=== PATIENT | male | born 1945 ===

== ENCOUNTER 2016-06-20 14:42 | Emergency (ER) | payer MEDICARE ==
[2016-06-20 14:47] VITALS: BMI 23.6
[2016-06-20 16:06] LABS: BASO # 0.1 K/uL (0.0-0.2); BASO % 1.3 % (0.0-2.0); EOS # 0.5 K/uL (0.0-0.7); EOS % 5.8 % (0.0-4.0); HEMATOCRIT 34.1 % (35.0-51.0); LYMPH # 1.8 K/uL (1.0-4.3); LYMPH % 23.5 % (20.0-40.0); MEAN CELL VOLUME 77.1 fL (80.0-94.0); MEAN CORPUSCULAR HEMOGLOBIN 25.6 pg (27.0-31.0); MEAN CORPUSCULAR HGB CONC 33.1 g/dL (33.0-37.0); MEAN PLATELET VOLUME 9.2 fL (7.2-11.7); MONO # 0.6 K/uL (0.0-0.8); MONO % 8.3 % (0.0-10.0); RED CELL DISTRIBUTION WIDTH 14.5 % (11.5-14.5); WHITE BLOOD COUNT 7.8 K/uL (4.8-10.8)
[2016-06-20 16:11] LABS: CHLORIDE 100 mmol/L (98-107)
[2016-06-20 16:12] LABS: POTASSIUM 4.9 mmol/L (3.6-5.2); SODIUM 138 mmol/L (132-148)
[2016-06-20 16:14] LABS: ALB/GLOB RATIO 1.3 (1.0-2.1); ALKALINE PHOSPHATASE 66 U/L (38-126); AST/SGOT 22 U/L (17-59); BILIRUBIN,TOTAL 0.6 mg/dL (0.2-1.3); BLOOD UREA NITROGEN 25 mg/dL (9-20); CARBON DIOXIDE 25 mmol/L (22-30); GFR AFRICAN-AMERICAN > 60; GLUCOSE,RANDOM 130 mg/dL (75-110); TOTAL PROTEIN 7.3 g/dL (6.3-8.3)
[2016-06-20 16:15] LABS: ALT/SGPT 32 U/L (21-72); CALCIUM 9.8 mg/dl (8.6-10.4); RBC URINE < 1 /hpf (0-3); URINE BILIRUBIN NEGATIVE (NEGATIVE); URINE BLOOD NEGATIVE (NEGATIVE); URINE COLOR Yellow (YELLOW); URINE GLUCOSE (UA) 2+ mg/dL (Normal); URINE KETONE NEGATIVE (NEGATIVE); URINE LEUKOCYTE ESTERASE NEG Leu/uL (Negative); URINE PROTEIN NEGATIVE (NEGATIVE); URINE UROBILINOGEN NORMAL mg/dL (0.2-1.0); WBC URINE 1 /hpf (0-5)
--- NOTE | 2016-06-20 16:28 | RAD ---
PROCEDURE: CHEST RADIOGRAPH, 1 VIEW HISTORY: SOB COMPARISON: None available. FINDINGS: LUNGS: Poor inspiration with low lung volumes, mild crowded bronchovascular markings and mild bibasilar atelectasis. Questionable small bilateral effusions slight elevation right hemidiaphragm could be due to eventration. PLEURA: No pneumothorax or pleural fluid seen. CARDIOVASCULAR: Mild cardiomegaly. OSSEOUS STRUCTURES: No significant abnormalities. VISUALIZED UPPER ABDOMEN: Normal. OTHER FINDINGS: None. IMPRESSION: Poor inspiration with low lung volumes, mild crowded bronchovascular markings and mild bibasilar atelectasis. Questionable small bilateral effusions slight elevation right hemidiaphragm could be due to eventration.
--- NOTE | 2016-06-20 17:02 | C.PDOC ---
History Of Present Illness Patient is a 70 y/o male that presents to the ED for evaluation of dyspnea on exertion for the last 2 weeks. Patient reports difficulty walking up 1 flight of stairs. Otherwise, denies any chest pain, palpitations, fever, chills, light headedness, headache, weakness, numbness, or any other associated symptoms at this time. recent tx by PMD with [facility] and [facility] Time Seen by Provider: 06/20/16 15:10 Chief Complaint (Nursing): Chest Pain History Per: Patient History/Exam Limitations: no limitations Onset/Duration Of Symptoms: Days (2 weeks) Current Symptoms Are (Timing): Still Present Severity: None Pain Scale Rating Of: 0 Associated Symptoms: Dyspnea. denies: Nausea, Diaphoresis, Syncope Modifying Factors: None Exacerbating Factors: Exertion Recent travel outside of the [place]: No Additional History Per: Patient Past Medical History Reviewed: Historical Data, Nursing Documentation, Vital Signs Vital Signs: Last Vital Signs Temp 98.4 F 06/20/16 19:28 Pulse 70 06/20/16 19:28 Resp 20 06/20/16 19:28 BP 144/71 06/20/16 19:28 Pulse Ox 98 06/20/16 19:28 - Medical History PMH: Asthma, HTN Family History: States: Unknown Family Hx - Social History Hx Alcohol Use: No Hx Substance Use: No - Immunization History Hx Tetanus Toxoid Vaccination: No Hx Influenza Vaccination: Yes Hx Pneumococcal Vaccination: Yes Review Of Systems Except As Marked, All Systems Reviewed And Found Negative. Constitutional: Negative for: Fever, Chills Cardiovascular: Negative for: Chest Pain, Palpitations, Edema, Light Headedness Respiratory: Positive for: Shortness of Breath, SOB with Excertion. Negative for: Cough, Hemoptysis, Sputum, Wheezing Gastrointestinal: Negative for: Nausea, Vomiting Neurological: Negative for: Weakness, Numbness, Headache, Dizziness Physical Exam - Physical Exam Appears: Non-toxic, No Acute Distress Skin: Warm, Dry, Pale (pale complexion that is baseline due to skin disorder) Head: Atraumatic, Normacephalic Eye(s): bilateral: Normal Inspection, EOMI Neck: Normal ROM, Supple Chest: Symmetrical, No Tenderness Cardiovascular: Rhythm Regular, No Murmur Respiratory: Normal Breath Sounds, No Accessory Muscle Use, No Rales, No Rhonchi , No Wheezing Extremity: Normal ROM, No Pedal Edema, No Deformity, No Swelling Extremity: Bilateral: Atraumatic Neurological/Psych: Oriented x3, Normal Speech, Normal Cognition ED Course And Treatment - Laboratory Results Result Diagrams: 06/20/16 15:59 06/20/16 15:59 Lab Interpretation: Abnormal (d-dimer 492H) ECG: Interpreted By Me, Viewed By Me ECG Rhythm: Sinus Rhythm ECG Interpretation: No Acute Changes Rate From EC (bpm) O2 Sat by Pulse Oximetry: 100 (on RA) Pulse Ox Interpretation: Normal - Other Rad CTA Chest X-Ray: Interpreted by Me, Read By Radiologist (no PE, some small airway disease) Progress Note: Labs, EKG, CXR ordered and reviewed. Reevaluation Time: 19:40 Reassessment Condition: Improved Medical Decision Making Medical Decision Making: prob COPD, no sig anemia, mildly elev d-dimer (492) CTA neg for PE Pt and family rather f/u as opt. Disposition Doctor Will See Patient In The: Office Counseled Patient/Family Regarding: Studies Performed, Diagnosis - Disposition Disposition: HOME/ ROUTINE Disposition Time: 19:41 Condition: GOOD - Clinical Impression Clinical Impression: Dyspnea on exertion - Scribe Statement The provider has reviewed the documentation as recorded by the Ollie Bejarano Provider Attestation: All medical record entries made by the Ollie were at my direction and personally dictated by me. I have reviewed the chart and agree that the record accurately reflects my personal performance of the history, physical exam, medical decision making, and the department course for this patient. I have also personally directed, reviewed, and agree with the discharge instructions and disposition.
[2016-06-20] MEDS ORDERED: Iodixanol 320 MG/ML 100 ML BOTTLE IV ONE (18:34)
--- NOTE | 2016-06-20 19:27 | CT ---
EXAM: CT Angiography Chest With Intravenous Contrast. CLINICAL HISTORY: 70 years old, male; Signs and symptoms; Other: Elevated d-dimer; Additional info: Dickerson, elev d-dimer TECHNIQUE: Axial computed tomographic angiography images of the chest with intravenous contrast using pulmonary embolism protocol. This CT exam was performed using one or more of the following dose reduction techniques: automated exposure control, adjustment of the mA and/or kV according to patient size, and/or use of iterative reconstruction technique. MIP reconstructed images were created and reviewed. Coronal and sagittal reformatted images were created and reviewed. CONTRAST: 100 mL of [id number] administered intravenously. EXAM DATE/TIME: 06/20/2016 6:00 PM COMPARISON: No relevant prior studies available. FINDINGS: LIMITATIONS: Exam is limited by mild respiratory motion artifact. PULMONARY ARTERIES: Contrast opacification of the pulmonary arteries is adequate, and there are no filling defects seen to suggest pulmonary embolism. AORTA: No evidence of aortic dissection. LUNGS: Multiple areas of mosaic attenuation are seen in the lung parenchyma bilaterally, which could represent multifocal air trapping from small airways disease, such as reactive airways disease. Incidental 4 x 2 noncalcified pulmonary nodule in the right lung, image 122/series 2. In low-risk patients (minimal or absent history of smoking or other known risk factors), no follow-up needed. For high-risk patients (history of smoking or other known risk factors), recommend CT at 12 months and if stable no further follow-up. No evidence of significant focal consolidation/infiltrate in the lungs. No evidence of diffuse pulmonary vascular congestion. PLEURAL SPACE: No pneumothorax or pleural effusions seen. HEART: Coronary artery calcification. No evidence of significant pericardial effusion. BONES/JOINTS: No acute bony abnormality identified. LYMPH NODES: No evidence of diffuse lymphadenopathy. IMPRESSION: - No evidence of pulmonary embolism or other significant acute abnormality in the chest. - Incidental 3 mm pumonary nodule. See recommendations above - Areas of mosaic attenuation in the lungs bilaterally, which could represent multifocal air trapping from small airways disease, such as reactive airways disease - See above for remaining findings.
[2016-06-20 19:28] VITALS: BP 144/71; PULSE 70; RESP 20; TEMP 98.4
[2016-06-20 19:41] VITALS: O2SAT 100
--- NOTE | 2016-06-21 22:15 | CARD ---
APPROVED REPORT EKG Measurement Heart [id number] ME [id number] <Conclusion> Normal sinus rhythm Normal ECG
== END 2016-06-20 19:45 | disposition home or self-care (01) ==
LOC: C.ER 14:42
DX: R06.09 Other forms of dyspnea (principal)
CPT/HCPCS: 71010; 71275; 80053; 81001; 83880; 84484; 85025; 85378; 93005; 99285; Q9967

== ENCOUNTER 2016-07-14 08:51 | Inpatient (IN) | payer MEDICARE ==
[2016-07-14 09:07] VITALS: BMI 22.6
[2016-07-14 09:27] LABS: INR 0.9
[2016-07-14] MEDS ORDERED: Iodixanol 320 MG/ML 200 ML BOTTLE IV ONE (11:40)
[2016-07-14] MEDS ORDERED: Midazolam 2 MG/2 ML VIAL ONE (11:41)
[2016-07-14] MEDS ORDERED: Iodixanol 320 MG/ML 100 ML BOTTLE IV ONE (12:19)
[2016-07-14] MEDS ORDERED: ceFAZolin IV 1 gm in Dextrose 50 ML IVPB ONE (12:27)
[2016-07-14] MEDS ORDERED: Sodium Chloride 0.9% 1,000 ML IV SCH (13:15)
--- NOTE | 2016-07-14 14:02 | CP.PCM.HP ---
<Pancho Murillo - Last Filed: 07/14/16 17:27> History of Present Illness - History of Present Illness History of Present Illness: CC: Shortness of Breath HPI: Patient is a 70 year old male of descent, with PMHx of type two diabetes mellitus (diagnosed 20 years ago), hyperlipidemia, prostatectomy, and iron deficiency anemia, who presented to [facility] for cardiac catheterization. Cardiac cath showed multiple blockages. Patient reports onset of dyspnea with exertion. He used to be able to walk up stairs without issue but now has difficulty climbing 1 flight without becoming winded. Pt reports recent ED visit on 06/20/2016 for dyspnea, he was prescribed Advair and told to follow up with his PMD, Dr. Charlie Branham. His symptoms did not improve so he followed up, and was sent to Dr. Castillo, the molded goods spot picker. Pt was referred to Dr. Johnston for Cardiac cath. PMHx: T2DM (diagnosed 20 years ago), hyperlipidemia, prostatectomy, iron deficiency anemia PSHx: Prostactectomy (2014), Cataracts FHx: Mother - HTN, [place]; Father - denies SHx: Denies smoking history; worked in [employer] in [facility] [facility] "exposed to chemicals and dust"; Allergies: NKA Home meds: ASA 81mg Daily, Metformin 1000mg PO BID, Glipizide XL 10mg PO BID, Repaglinide 1mg PO daily, Lisinopril/HCTZ 20/25mg, Zoloft 25 mg Daily, Omeprazole 20mg Daily PMD: Dr. Charlie Branham Present on Admission - Present on Admission Any Indicators Present on Admission: No History of DVT/PE: No Review of Systems - Constitutional Constitutional: absent: Chills, Fever - EENT Eyes: absent: Change in Vision Ears: absent: Decreased Hearing - Cardiovascular Cardiovascular: Dyspnea on Exertion. absent: Chest Pain, Chest Pain at Rest, Edema - Respiratory Respiratory: Dyspnea on Exertion. absent: Cough - Gastrointestinal Gastrointestinal: absent: Abdominal Pain, Dysphagia, Nausea, Vomiting - Genitourinary Genitourinary: absent: Dysuria - Musculoskeletal Musculoskeletal: absent: Back Pain, Numbness, Tingling - Neurological Neurological: absent: Dizziness, Tremor, Weakness - Psychiatric Psychiatric: absent: Anxiety Past Patient History - Infectious Disease Hx of Infectious Diseases: None - Past Medical History & Family History Past Medical History?: Yes - Past Social History Smoking Status: Never Smoked - CARDIAC Hx Cardiac Disorders: Yes (CAD) Hx Hypercholesterolemia: Yes Hx Hypertension: Yes - PULMONARY Hx Respiratory Disorders: Yes Hx Asthma: Yes Hx Chronic Obstructive Pulmonary Disease (COPD): Yes - NEUROLOGICAL Hx Neurological Disorder: No - HEENT Hx HEENT Problems: Yes Hx Cataracts: Yes (RIGHT) - RENAL Hx Chronic Kidney Disease: No - ENDOCRINE/METABOLIC Hx Endocrine Disorders: Yes Hx Diabetes Mellitus Type 2: Yes - HEMATOLOGICAL/ONCOLOGICAL Hx Blood Disorders: No - INTEGUMENTARY Hx Dermatological Problems: Yes (PIGMENT LOSS) - MUSCULOSKELETAL/RHEUMATOLOGICAL Hx Musculoskeletal Disorders: Yes Hx Osteoarthritis: Yes (KNEES) - GASTROINTESTINAL Hx Gastrointestinal Disorders: No - GENITOURINARY/GYNECOLOGICAL Hx Genitourinary Disorders: Yes Hx Prostate Problems: Yes - PSYCHIATRIC Hx Psychophysiologic Disorder: No Hx Substance Use: No - SURGICAL HISTORY Hx Surgeries: Yes Hx Cataract Extraction: Yes (RIGHT) Other/Comment: prostate sx - ANESTHESIA Hx Anesthesia: Yes Hx Anesthesia Reactions: No Hx Malignant Hyperthermia: No Has any member of the family had a problem w/ anesthesia?: No Meds Allergies/Adverse Reactions: Allergies Allergy/AdvReac Type Severity Reaction Status Date / Time No Known Allergies Allergy Verified 06/20/16 14:47 Physical Exam - Constitutional Appears: Non-toxic, No Acute Distress - Head Exam Head Exam: ATRAUMATIC, NORMAL INSPECTION, NORMOCEPHALIC - Eye Exam Eye Exam: EOMI Pupil Exam: PERRL - ENT Exam ENT Exam: Mucous Membranes Moist - Neck Exam Neck exam: Positive for: Normal Inspection. Negative for: Lymphadenopathy - Respiratory Exam Respiratory Exam: Clear to Auscultation Bilateral, NORMAL BREATHING PATTERN. absent: Rales, Rhonchi, Wheezes - Cardiovascular Exam Cardiovascular Exam: REGULAR RHYTHM, +S1, +S2 - GI/Abdominal Exam GI & Abdominal Exam: Normal Bowel Sounds, Soft. absent: Tenderness - Extremities Exam Extremities exam: Positive for: normal inspection. Negative for: tenderness - Neurological Exam Neurological exam: Alert, Oriented x3 - Psychiatric Exam Psychiatric exam: Normal Affect - Skin Skin Exam: Normal Color, Warm Results - Labs Result Diagrams: 07/14/16 17:10 07/14/16 17:10 Labs: Laboratory Results - last 24 hr 07/14/16 09:15 PT 10.0 INR 0.9 APTT 30 Assessment & Plan - Assessment and Plan (Free Text) Assessment: 70 year old male with PMHx of HTN, hyperlipidemia, type two diabetes mellitus, s /p cardiac cath showing with multiple stent placements. For CABG as soon as bed available. Plan: CAD Cardiac Cath (07/14/16) showing triple vessel disease Dr. Johnston, Cardiology, consulted: help appreciated - pt for CABG at [facility], [place] as soon as bed available Continue home med: ASA 81mg Lovenox 60mg Q12H f/u ECHO f/u TSH, Free T4 f/u CBC, CMP, Mg, Phos HTN Initially hypertensive in ICU Start Lopressor 12.5mg PO BID Continue home meds: Lisinopril 20 mg PO Daily HCTZ 25 mg PO Daily Monitor Diabetes Mellitus, Type Two Accuchecks ACHS ISS f/u Hemoglobin A1C Hold home meds: Metformin 1000mg PO BID Glipizide XL 10mg PO BID Repaglinide 1mg PO daily Hyperlipidemia Crestor 40mg PO HS f/u lipid panel Prophylaxis DVT: Lovenox 60mg SC Q12H, SCDs GI: Protonix 40mg IV Daily D/W Dr. Marissa Murillo PGY-1 <Lizeth Ann V - Last Filed: 07/14/16 19:40> Results - Vital Signs Recent Vital Signs: Last Vital Signs Temp 97.5 F L 07/14/16 13:40 Pulse 90 07/14/16 18:06 Resp 17 07/14/16 18:06 BP 158/108 H 07/14/16 18:06 Pulse Ox 98 07/14/16 18:06 - Labs Result Diagrams: 07/14/16 17:10 07/14/16 17:10 Labs: Laboratory Results - last 24 hr 07/14/16 07/14/16 07/14/16 09:15 16:25 17:10 WBC 6.1 RBC 4.41 Hgb 11.3 L Hct 33.9 L MCV 76.9 L MCH 25.6 L MCHC 33.3 RDW 14.5 Plt Count 161 MPV 8.8 Neut % (Auto) 61.3 Lymph % (Auto) 24.8 [place] % (Auto) 7.8 Eos % (Auto) 5.3 H Baso % (Auto) 0.8 Neut # 3.7 Lymph # 1.5 [place] # 0.5 Eos # 0.3 Baso # 0.0 PT 10.0 INR 0.9 APTT 30 Sodium 134 Potassium 4.6 Chloride 98 Carbon Dioxide 24 Anion Gap 17 BUN 23 H Creatinine 1.1 Est GFR ( Amer) > 60 Est GFR (Non-Af Amer) > 60 POC Glucose (mg/dL) 88 Random Glucose 95 Calcium 8.8 Phosphorus 3.7 Magnesium 1.7 Total Bilirubin 0.7 AST 24 ALT 27 Alkaline Phosphatase 66 Total Protein 6.8 Albumin 4.1 Globulin 2.7 Albumin/Globulin Ratio 1.5 Attending/Attestation - Attestation I have personally seen and examined this patient.: Yes I have fully participated in the care of the patient.: Yes I have reviewed all pertinent clinical information: Yes Notes (Text): Patient seen, examined, and case discussed with ICU resident. Case discussed with radiology tech, Dr Johnston. Patient underwent cardiac catherization wherein showed significant multiple vessel disease. Patient is pending transfer to [facility] for CABG procedure. Per cardiology, patient is on aspirin, beta-shalom, galen-inhibitor, statin, and off PO anti-diabetic medications. Spoke briefly with family at bedside, patient's brother and at bedside. Assessment/Plan 1) Coronary Artery Disease Cardiac Cath (07/14/16) showing triple vessel disease Dr. Johnston (radiology tech)-->help appreciated Discussed with cardiology, for possible transfer for for CABG at [facility], [place] as soon as bed available Continue home med: ASA 81mg PO daily Lovenox 60mg Q12H f/u ECHO check EF f/u TSH, Free T4 f/u CBC, CMP, Mg, Phos 2) Hypertension Start Lopressor 12.5mg PO BID Continue home meds: Lisinopril 20 mg PO Daily HCTZ 25 mg PO Daily Monitor vital signs and adjust accordingly 3) Diabetes Mellitus, Type Two Accuchecks ACHS ISS f/u Hemoglobin A1C Hold home meds: Metformin 1000mg PO BID Glipizide XL 10mg PO BID Repaglinide 1mg PO daily 4) Hyperlipidemia Crestor 40mg PO HS f/u lipid panel in AM 5) Prophylaxis DVT: Lovenox 60mg SC Q12H, SCDs GI: Protonix 40mg IV Daily Vegetarian diet
--- NOTE | 2016-07-14 15:33 | CP.PCM.CON ---
<Pancho Murillo - Last Filed: 07/14/16 17:31> History of Present Illness - History of Present Illness History of Present Illness: PGY-[address] Saldana, chief operations officer CC: Shortness of Breath HPI: Patient is a 70 year old male of [place] descent, with PMHx of type two diabetes mellitus (diagnosed 20 years ago), hyperlipidemia, prostatectomy, and iron deficiency anemia, who presented to [facility] for cardiac catheterization. Cardiac cath showed triple vessel disease, and multiple stents were placed. Patient reports onset of dyspnea with exertion. He used to be able to walk up stairs without issue but now has difficulty climbing 1 flight without becoming winded. Pt reports recent ED visit on 06/20/2016 for dyspnea, he was prescribed Advair and told to follow up with his PMD, Dr. Charlie Branham. His symptoms did not improve so he followed up, and was sent to Dr. Castillo, the stock mover. Pt was referred to Dr. Johnston for Cardiac cath. PMHx: T2DM (diagnosed 20 years ago), hyperlipidemia, prostatectomy, iron deficiency anemia PSHx: Prostactectomy (2014), Cataracts FHx: Mother - HTN, [place]; Father - denies SHx: Denies smoking/alcohol/illicit drug history; worked in [employer] in [facility] "exposed to chemicals and dust"; lives in apartment in [place] Allergies: NKA Home meds: ASA 81mg Daily, Metformin 1000mg PO BID, Glipizide XL 10mg PO BID, Repaglinide 1mg PO daily, Lisinopril/HCTZ 20/25mg, Zoloft 25 mg Daily, Omeprazole 20mg Daily PMD: Dr. Apolinar Branham Review of Systems - Constitutional Constitutional: absent: Chills, Fever - EENT Eyes: absent: Change in Vision Ears: absent: Decreased Hearing Nose/Mouth/Throat: absent: Nasal Discharge, Sore Throat - Cardiovascular Cardiovascular: Dyspnea on Exertion. absent: Chest Pain, Chest Pain at Rest, Edema - Respiratory Respiratory: Dyspnea on Exertion. absent: Cough - Gastrointestinal Gastrointestinal: absent: Abdominal Pain, Bloating, Diarrhea, Nausea, Vomiting - Genitourinary Genitourinary: absent: Dysuria - Musculoskeletal Musculoskeletal: absent: Back Pain, Numbness, Tingling - Neurological Neurological: absent: Dizziness, Tremor, Weakness - Psychiatric Psychiatric: absent: Anxiety Past Patient History - Infectious Disease Hx of Infectious Diseases: None - Past Medical History & Family History Past Medical History?: Yes - Past Social History Smoking Status: Never Smoked - CARDIAC Hx Cardiac Disorders: Yes (CAD) Hx Hypercholesterolemia: Yes Hx Hypertension: Yes - PULMONARY Hx Respiratory Disorders: Yes Hx Asthma: Yes Hx Chronic Obstructive Pulmonary Disease (COPD): Yes - NEUROLOGICAL Hx Neurological Disorder: No - HEENT Hx HEENT Problems: Yes Hx Cataracts: Yes (RIGHT) - RENAL Hx Chronic Kidney Disease: No - ENDOCRINE/METABOLIC Hx Endocrine Disorders: Yes Hx Diabetes Mellitus Type 2: Yes - HEMATOLOGICAL/ONCOLOGICAL Hx Blood Disorders: No - INTEGUMENTARY Hx Dermatological Problems: Yes (PIGMENT LOSS) - MUSCULOSKELETAL/RHEUMATOLOGICAL Hx Musculoskeletal Disorders: Yes Hx Osteoarthritis: Yes (KNEES) - GASTROINTESTINAL Hx Gastrointestinal Disorders: No - GENITOURINARY/GYNECOLOGICAL Hx Genitourinary Disorders: Yes Hx Prostate Problems: Yes - PSYCHIATRIC Hx Psychophysiologic Disorder: No Hx Substance Use: No - SURGICAL HISTORY Hx Surgeries: Yes Hx Cataract Extraction: Yes (RIGHT) Other/Comment: prostate sx - ANESTHESIA Hx Anesthesia: Yes Hx Anesthesia Reactions: No Hx Malignant Hyperthermia: No Has any member of the family had a problem w/ anesthesia?: No Meds Allergies/Adverse Reactions: Allergies Allergy/AdvReac Type Severity Reaction Status Date / Time No Known Allergies Allergy Verified 06/20/16 14:47 - Medications Medications: Current Medications Albuterol (Ventolin Hfa 90 Mcg/Actuation (8 G)) 1 puff IH BID PRN PRN Reason: Shortness of Breath Enoxaparin Sodium (Lovenox) 60 mg SC Q12 [facility] Hydrochlorothiazide (Hydrodiuril) 25 mg PO DAILY [facility] Last Admin: 07/14/16 15:20 Dose: 25 mg Sodium Chloride (Sodium Chloride 0.9%) 1,000 mls @ 70 mls/hr IV .[id number] [facility] Stop: 07/15/16 01:16 Last Admin: 07/14/16 13:35 Dose: 70 mls/hr Insulin Human Regular (Novolin R) 0 unit SC ACHS [facility] PRN Reason: Protocol Lisinopril (Zestril) 20 mg PO DAILY [facility] Last Admin: 07/14/16 15:20 Dose: 20 mg Pantoprazole Sodium (Protonix Inj) 40 mg IVP DAILY [facility] Physical Exam - Constitutional Appears: Non-toxic, No Acute Distress - Head Exam Head Exam: ATRAUMATIC, NORMAL INSPECTION, NORMOCEPHALIC - Eye Exam Eye Exam: EOMI Pupil Exam: PERRL - ENT Exam ENT Exam: Mucous Membranes Moist - Neck Exam Neck exam: Positive for: Normal Inspection. Negative for: Lymphadenopathy - Respiratory Exam Respiratory Exam: Clear to Auscultation Bilateral, NORMAL BREATHING PATTERN. absent: Rales, Rhonchi, Wheezes - Cardiovascular Exam Cardiovascular Exam: REGULAR RHYTHM, +S1, +S2 - GI/Abdominal Exam GI & Abdominal Exam: Normal Bowel Sounds, Soft. absent: Tenderness - Extremities Exam Extremities exam: Positive for: normal inspection, pedal pulses present. Negative for: pedal edema, tenderness - Neurological Exam Neurological exam: Alert, Oriented x3 - Psychiatric Exam Psychiatric exam: Normal Affect - Skin Skin Exam: Normal Color, Warm Results - Vital Signs Recent Vital Signs: Last Vital Signs Temp 97.5 F L 07/14/16 13:40 Pulse 71 07/14/16 13:40 Resp 18 07/14/16 13:40 BP 152/67 H 07/14/16 13:40 Pulse Ox 100 07/14/16 13:40 - Labs Result Diagrams: 07/14/16 17:10 07/14/16 17:10 Labs: Laboratory Results - last 24 hr 07/14/16 09:15 PT 10.0 INR 0.9 APTT 30 Assessment & Plan - Assessment and Plan (Free Text) Assessment: 70 year old male with PMHx of HTN, hyperlipidemia, type two diabetes mellitus, s /p cardiac cath showing with multiple stent placements. For CABG as soon as bed available. Plan: Neuro: aao x3 in nad Cardio: Dr. Johnston, cardiology, consult: help appreciated Cardiac Cath showed triple vessel disease - CABG at [facility] when bed available Dr. Martinez, Cardio EP, consulted Continue home Lisinopril/HCTZ 20/25mg PO Daily Start Lopressor 12.5 mg PO BID Crestor 40mg PO HS Lovenox 40mg PO HS F/U Echo f/u TSH, Free T4, lipid panel f/u CBC, CMP, Mg, Phos Heart Healthy Diet, with consistent carbohydrates Nephro/: NS @ 70cc/hr BUN/Crea: 23/1.1 GFR: >60 Pulm: Hx of "respiratory disorder" - Pt denies hx of asthma/copd but chart indicates previous diagnoses - Continue home med: Ventolin HFA 1 puff IH BID Endo: DM: ISS - low Accuchecks Hold home metformin/glipizide/repaglinide f/u A1C Prophylaxis: GI: Protonix IV Daily DVT: SCDs, Lovenox 60mg SC Q12H <Nathan Saldana - Last Filed: 07/14/16 18:42> Meds - Medications Medications: Current Medications Albuterol (Ventolin Hfa 90 Mcg/Actuation (8 G)) 1 puff IH BID PRN PRN Reason: Shortness of Breath Enoxaparin Sodium (Lovenox) 60 mg SC Q12 [facility] Hydrochlorothiazide (Hydrodiuril) 25 mg PO DAILY [facility] Last Admin: 07/14/16 15:20 Dose: 25 mg Sodium Chloride (Sodium Chloride 0.9%) 1,000 mls @ 70 mls/hr IV .[id number] [facility] Stop: 07/15/16 01:16 Last Admin: 07/14/16 13:35 Dose: 70 mls/hr Insulin Human Regular (Novolin R) 0 unit SC ACHS [facility] PRN Reason: Protocol Last Admin: 07/14/16 17:00 Dose: Not Given Lisinopril (Zestril) 20 mg PO DAILY [facility] Last Admin: 07/14/16 15:20 Dose: 20 mg Metoprolol Tartrate (Lopressor) 12.5 mg PO BID [facility] Pantoprazole Sodium (Protonix Inj) 40 mg IVP DAILY [facility] Last Admin: 07/14/16 18:11 Dose: 40 mg Rosuvastatin Calcium (Crestor) 40 mg PO HS [facility] Results - Vital Signs Recent Vital Signs: Last Vital Signs Temp 97.5 F L 07/14/16 13:40 Pulse 90 07/14/16 18:06 Resp 17 07/14/16 18:06 BP 158/108 H 07/14/16 18:06 Pulse Ox 98 07/14/16 18:06 - Labs Result Diagrams: 07/14/16 17:10 07/14/16 17:10 Labs: Laboratory Results - last 24 hr 07/14/16 07/14/16 07/14/16 09:15 16:25 17:10 WBC 6.1 RBC 4.41 Hgb 11.3 L Hct 33.9 L MCV 76.9 L MCH 25.6 L MCHC 33.3 RDW 14.5 Plt Count 161 MPV 8.8 Neut % (Auto) 61.3 Lymph % (Auto) 24.8 [place] % (Auto) 7.8 Eos % (Auto) 5.3 H Baso % (Auto) 0.8 Neut # 3.7 Lymph # 1.5 [place] # 0.5 Eos # 0.3 Baso # 0.0 PT 10.0 INR 0.9 APTT 30 Sodium 134 Potassium 4.6 Chloride 98 Carbon Dioxide 24 Anion Gap 17 BUN 23 H Creatinine 1.1 Est GFR ( Amer) > 60 Est GFR (Non-Af Amer) > 60 POC Glucose (mg/dL) 88 Random Glucose 95 Calcium 8.8 Phosphorus 3.7 Magnesium 1.7 Total Bilirubin 0.7 AST 24 ALT 27 Alkaline Phosphatase 66 Total Protein 6.8 Albumin 4.1 Globulin 2.7 Albumin/Globulin Ratio 1.5 Attending/Attestation - Attestation I have personally seen and examined this patient.: Yes I have fully participated in the care of the patient.: Yes I have reviewed all pertinent clinical information: Yes Notes (Text): 07/14/16 18:41 patient seen and examined Cardiac Cath showed triple vessel disease CABG at [facility] when bed available Continue present treatment
[2016-07-14] MEDS: (Novolin R) Insulin Human Regular 100 units/ml vial SC SCH ×2 (17:00→21:42)
[2016-07-14 17:16] LABS: BASO % 0.8 % (0.0-2.0); EOS # 0.3 K/uL (0.0-0.7); EOS % 5.3 % (0.0-4.0); HEMATOCRIT 33.9 % (35.0-51.0); LYMPH # 1.5 K/uL (1.0-4.3); LYMPH % 24.8 % (20.0-40.0); MEAN CELL VOLUME 76.9 fL (80.0-94.0); MEAN CORPUSCULAR HEMOGLOBIN 25.6 pg (27.0-31.0); MEAN CORPUSCULAR HGB CONC 33.3 g/dL (33.0-37.0); MEAN PLATELET VOLUME 8.8 fL (7.2-11.7); MONO # 0.5 K/uL (0.0-0.8); MONO % 7.8 % (0.0-10.0); RED CELL DISTRIBUTION WIDTH 14.5 % (11.5-14.5); WHITE BLOOD COUNT 6.1 K/uL (4.8-10.8)
[2016-07-14 17:22] LABS: CHLORIDE 98 mmol/L (98-107); SODIUM 134 mmol/L (132-148)
[2016-07-14 17:23] LABS: POTASSIUM 4.6 mmol/L (3.6-5.2)
[2016-07-14 17:24] LABS: GFR AFRICAN-AMERICAN > 60
[2016-07-14 17:25] LABS: ALB/GLOB RATIO 1.5 (1.0-2.1); ALKALINE PHOSPHATASE 66 U/L (38-126); ALT/SGPT 27 U/L (21-72); AST/SGOT 24 U/L (17-59); BILIRUBIN,TOTAL 0.7 mg/dL (0.2-1.3); BLOOD UREA NITROGEN 23 mg/dL (9-20); CARBON DIOXIDE 24 mmol/L (22-30); GLUCOSE,RANDOM 95 mg/dL (75-110); PHOSPHOROUS 3.7 mg/dL (2.5-4.5); TOTAL PROTEIN 6.8 g/dL (6.3-8.3)
[2016-07-14 17:26] LABS: CALCIUM 8.8 mg/dl (8.6-10.4); MAGNESIUM 1.7 mg/dL (1.6-2.3)
--- NOTE | 2016-07-14 17:46 | CP.PCM.CON ---
<Jona Rowan - Last Filed: 07/14/16 17:41> History of Present Illness - History of Present Illness History of Present Illness: Cardiology Consultation Note Dr. Martinez CC: Shortness of Breath HPI: This is a 70 year old male with PMH notable for type two diabetes mellitus (diagnosed 20 years ago), hyperlipidemia, prostatectomy, and iron deficiency anemia presenting for cardiac evaluation s/p cardiac catheterization with Dr. Johnston. The cardiac cath revealed triple vessel disease, and multiple stents were placed. The patient is pending transfer to [facility] for cardiac bypass surgery. Presently the patient reports resolution of cardiopulmonary symptoms. PMH: DM (diagnosed 20 years ago), hyperlipidemia, prostatectomy, iron deficiency anemia PSH: Prostactectomy (2014), Cataracts FH: Mother - HTN, [place]; Father - denies SH: Denies smoking/alcohol/illicit drug history; worked in [employer] in [facility] "exposed to chemicals and dust"; lives in apartment in [place] Allergies: NKA Home meds: ASA 81mg Daily, Metformin 1000mg PO BID, Glipizide XL 10mg PO BID, Repaglinide 1mg PO daily, Lisinopril/HCTZ 20/25mg, Zoloft 25 mg Daily, Omeprazole 20mg Daily PMD: Dr. Charlie Branham Review of Systems - Constitutional Constitutional: absent: Chills, Fever - EENT Eyes: absent: Blurred Vision, Change in Vision Ears: absent: Decreased Hearing, Tinnitus Nose/Mouth/Throat: absent: Facial Pain, Neck Pain - Cardiovascular Cardiovascular: absent: Chest Pain, Orthopnea, Palpitations - Respiratory Respiratory: absent: Cough, Dyspnea, Dyspnea on Exertion - Gastrointestinal Gastrointestinal: absent: Abdominal Pain, Constipation, Nausea, Vomiting - Genitourinary Genitourinary: absent: Change in Urinary Stream - Musculoskeletal Musculoskeletal: absent: Stiffness, Tingling - Integumentary Integumentary: absent: Lesions, Rash, Wounds - Neurological Neurological: absent: Syncope, Tingling, Weakness - Endocrine Endocrine: absent: Cold Intolorance, Heat Intolorance Past Patient History - Infectious Disease Hx of Infectious Diseases: None - Past Medical History & Family History Past Medical History?: Yes - Past Social History Smoking Status: Never Smoked - CARDIAC Hx Cardiac Disorders: Yes (CAD) Hx Hypercholesterolemia: Yes Hx Hypertension: Yes - PULMONARY Hx Respiratory Disorders: Yes Hx Asthma: Yes Hx Chronic Obstructive Pulmonary Disease (COPD): Yes - NEUROLOGICAL Hx Neurological Disorder: No - HEENT Hx HEENT Problems: Yes Hx Cataracts: Yes (RIGHT) - RENAL Hx Chronic Kidney Disease: No - ENDOCRINE/METABOLIC Hx Endocrine Disorders: Yes Hx Diabetes Mellitus Type 2: Yes - HEMATOLOGICAL/ONCOLOGICAL Hx Blood Disorders: No - INTEGUMENTARY Hx Dermatological Problems: Yes (PIGMENT LOSS) - MUSCULOSKELETAL/RHEUMATOLOGICAL Hx Musculoskeletal Disorders: Yes Hx Osteoarthritis: Yes (KNEES) - GASTROINTESTINAL Hx Gastrointestinal Disorders: No - GENITOURINARY/GYNECOLOGICAL Hx Genitourinary Disorders: Yes Hx Prostate Problems: Yes - PSYCHIATRIC Hx Psychophysiologic Disorder: No Hx Substance Use: No - SURGICAL HISTORY Hx Surgeries: Yes Hx Cataract Extraction: Yes (RIGHT) Other/Comment: prostate sx - ANESTHESIA Hx Anesthesia: Yes Hx Anesthesia Reactions: No Hx Malignant Hyperthermia: No Has any member of the family had a problem w/ anesthesia?: No Meds Allergies/Adverse Reactions: Allergies Allergy/AdvReac Type Severity Reaction Status Date / Time No Known Allergies Allergy Verified 06/20/16 14:47 - Medications Medications: Current Medications Albuterol (Ventolin Hfa 90 Mcg/Actuation (8 G)) 1 puff IH BID PRN PRN Reason: Shortness of Breath Enoxaparin Sodium (Lovenox) 60 mg SC Q12 [facility] Hydrochlorothiazide (Hydrodiuril) 25 mg PO DAILY [facility] Last Admin: 07/14/16 15:20 Dose: 25 mg Sodium Chloride (Sodium Chloride 0.9%) 1,000 mls @ 70 mls/hr IV .[id number] [facility] Stop: 07/15/16 01:16 Last Admin: 07/14/16 13:35 Dose: 70 mls/hr Insulin Human Regular (Novolin R) 0 unit SC ACHS [facility] PRN Reason: Protocol Lisinopril (Zestril) 20 mg PO DAILY [facility] Last Admin: 07/14/16 15:20 Dose: 20 mg Metoprolol Tartrate (Lopressor) 12.5 mg PO BID [facility] Pantoprazole Sodium (Protonix Inj) 40 mg IVP DAILY [facility] Rosuvastatin Calcium (Crestor) 40 mg PO HS [facility] Physical Exam - Constitutional Appears: Non-toxic - Head Exam Head Exam: ATRAUMATIC, NORMAL INSPECTION, NORMOCEPHALIC - Eye Exam Eye Exam: EOMI, Normal appearance, PERRL - ENT Exam ENT Exam: Mucous Membranes Moist - Respiratory Exam Respiratory Exam: Clear to Auscultation Bilateral, NORMAL BREATHING PATTERN. absent: Rhonchi, Wheezes - Cardiovascular Exam Cardiovascular Exam: REGULAR RHYTHM, RRR, +S1, +S2. absent: Diastolic murmur, Systolic Murmur - GI/Abdominal Exam GI & Abdominal Exam: Normal Bowel Sounds, Soft. absent: Diminished Bowel Sounds , Guarding, Tenderness - Extremities Exam Extremities exam: Positive for: normal inspection. Negative for: pedal edema - Neurological Exam Neurological exam: Alert, CN II-XII Intact, Oriented x3 - Skin Skin Exam: Dry, Intact, Normal Color, Warm Results - Vital Signs Recent Vital Signs: Last Vital Signs Temp 97.5 F L 07/14/16 13:40 Pulse 71 07/14/16 13:40 Resp 18 07/14/16 13:40 BP 152/67 H 07/14/16 13:40 Pulse Ox 100 07/14/16 13:40 - Labs Result Diagrams: 07/14/16 17:10 07/14/16 17:10 Labs: Laboratory Results - last 24 hr 07/14/16 07/14/16 07/14/16 09:15 16:25 17:10 WBC 6.1 RBC 4.41 Hgb 11.3 L Hct 33.9 L MCV 76.9 L MCH 25.6 L MCHC 33.3 RDW 14.5 Plt Count 161 MPV 8.8 Neut % (Auto) 61.3 Lymph % (Auto) 24.8 [place] % (Auto) 7.8 Eos % (Auto) 5.3 H Baso % (Auto) 0.8 Neut # 3.7 Lymph # 1.5 [place] # 0.5 Eos # 0.3 Baso # 0.0 PT 10.0 INR 0.9 APTT 30 Sodium 134 Potassium 4.6 Chloride 98 Carbon Dioxide 24 Anion Gap 17 BUN 23 H Creatinine 1.1 Est GFR ( Amer) > 60 Est GFR (Non-Af Amer) > 60 POC Glucose (mg/dL) 88 Random Glucose 95 Calcium 8.8 Phosphorus 3.7 Magnesium 1.7 Total Bilirubin 0.7 AST 24 ALT 27 Alkaline Phosphatase 66 Total Protein 6.8 Albumin 4.1 Globulin 2.7 Albumin/Globulin Ratio 1.5 Assessment & Plan - Assessment and Plan (Free Text) Assessment: This is a 70 year old male with PMH notable for type two diabetes mellitus ( diagnosed 20 years ago), hyperlipidemia, prostatectomy, and iron deficiency anemia presenting for cardiac evaluation s/p cardiac catheterization with Dr. Johnston. 1.) Severe Triple Vessel Disease Plan: 1.) Severe Triple Vessel Disease - the patient is s/p cardiac cath with Dr. Johnston revealing severe triple vessel disease - the patient is pending transfer to [facility] for cardiac bypass surgery - echo pending - Crestor 40mg PO hs - HCTZ 25mg PO daily - Metoprolol 12.5mg po bid - maintain supine posture for the next 4 hours following cath - cath site check q2 - patient will be have primary care managed by the ICU team Case discussed with Dr. Juan Rowan PGY1 - Date & Time Date: 07/14/16 Time: 17:52 <Yumiko Martinez - Last Filed: 08/17/16 09:58> Results - Vital Signs Recent Vital Signs: Last Vital Signs Temp 97.6 F 07/15/16 16:00 Pulse 72 07/15/16 19:42 Resp 9 L 07/15/16 19:42 BP 125/72 07/15/16 19:42 Pulse Ox 98 07/15/16 19:42 - Labs Result Diagrams: 07/15/16 06:06 07/15/16 06:06 Attending/Attestation - Attestation I have personally seen and examined this patient.: Yes I have fully participated in the care of the patient.: Yes I have reviewed all pertinent clinical information: Yes Notes (Text): 08/17/16 09:58 better bp control tolerating po
[2016-07-14] MEDS ORDERED: Albuterol HFA 90 mcg/actuation (8 g) IH PRN (18:00)
[2016-07-14] MEDS: Enoxaparin 60 mg Syringe SC SCH (22:01)
--- NOTE | 2016-07-14 22:24 | CP.PCM.CON ---
History of Present Illness - History of Present Illness History of Present Illness: Patient with TVD For CABG to [facility] likely tomorrow Past Patient History - Infectious Disease Hx of Infectious Diseases: None - Past Medical History & Family History Past Medical History?: Yes - Past Social History Smoking Status: Never Smoked - CARDIAC Hx Cardiac Disorders: Yes (CAD) Hx Hypercholesterolemia: Yes Hx Hypertension: Yes - PULMONARY Hx Respiratory Disorders: Yes Hx Asthma: Yes Hx Chronic Obstructive Pulmonary Disease (COPD): Yes - NEUROLOGICAL Hx Neurological Disorder: No - HEENT Hx HEENT Problems: Yes Hx Cataracts: Yes (RIGHT) - RENAL Hx Chronic Kidney Disease: No - ENDOCRINE/METABOLIC Hx Endocrine Disorders: Yes Hx Diabetes Mellitus Type 2: Yes - HEMATOLOGICAL/ONCOLOGICAL Hx Blood Disorders: No - INTEGUMENTARY Hx Dermatological Problems: Yes (PIGMENT LOSS) - MUSCULOSKELETAL/RHEUMATOLOGICAL Hx Musculoskeletal Disorders: Yes Hx Osteoarthritis: Yes (KNEES) - GASTROINTESTINAL Hx Gastrointestinal Disorders: No - GENITOURINARY/GYNECOLOGICAL Hx Genitourinary Disorders: Yes Hx Prostate Problems: Yes - PSYCHIATRIC Hx Psychophysiologic Disorder: No Hx Substance Use: No - SURGICAL HISTORY Hx Surgeries: Yes Hx Cataract Extraction: Yes (RIGHT) Other/Comment: prostate sx - ANESTHESIA Hx Anesthesia: Yes Hx Anesthesia Reactions: No Hx Malignant Hyperthermia: No Has any member of the family had a problem w/ anesthesia?: No Meds Allergies/Adverse Reactions: Allergies Allergy/AdvReac Type Severity Reaction Status Date / Time No Known Allergies Allergy Verified 06/20/16 14:47 - Medications Medications: Current Medications Albuterol (Ventolin Hfa 90 Mcg/Actuation (8 G)) 1 puff IH BID PRN PRN Reason: Shortness of Breath Enoxaparin Sodium (Lovenox) 60 mg SC Q12 [facility] Last Admin: 07/14/16 22:01 Dose: 60 mg Hydrochlorothiazide (Hydrodiuril) 25 mg PO DAILY [facility] Last Admin: 07/14/16 15:20 Dose: 25 mg Sodium Chloride (Sodium Chloride 0.9%) 1,000 mls @ 70 mls/hr IV .[id number] [facility] Stop: 07/15/16 01:16 Last Admin: 07/14/16 13:35 Dose: 70 mls/hr Insulin Human Regular (Novolin R) 0 unit SC ACHS [facility] PRN Reason: Protocol Last Admin: 07/14/16 21:42 Dose: Not Given Lisinopril (Zestril) 20 mg PO DAILY [facility] Last Admin: 07/14/16 15:20 Dose: 20 mg Metoprolol Tartrate (Lopressor) 12.5 mg PO BID [facility] Last Admin: 07/14/16 18:00 Dose: 12.5 mg Pantoprazole Sodium (Protonix Inj) 40 mg IVP DAILY [facility] Last Admin: 07/14/16 18:11 Dose: 40 mg Rosuvastatin Calcium (Crestor) 40 mg PO HS [facility] Last Admin: 07/14/16 22:02 Dose: 40 mg Results - Vital Signs Recent Vital Signs: Last Vital Signs Temp 97.5 F L 07/14/16 13:40 Pulse 90 07/14/16 18:06 Resp 17 07/14/16 18:06 BP 158/108 H 07/14/16 18:06 Pulse Ox 98 07/14/16 18:06 - Labs Result Diagrams: 07/14/16 17:10 07/14/16 17:10 Labs: Laboratory Results - last 24 hr 07/14/16 07/14/16 07/14/16 09:15 16:25 17:10 WBC 6.1 RBC 4.41 Hgb 11.3 L Hct 33.9 L MCV 76.9 L MCH 25.6 L MCHC 33.3 RDW 14.5 Plt Count 161 MPV 8.8 Neut % (Auto) 61.3 Lymph % (Auto) 24.8 [place] % (Auto) 7.8 Eos % (Auto) 5.3 H Baso % (Auto) 0.8 Neut # 3.7 Lymph # 1.5 [place] # 0.5 Eos # 0.3 Baso # 0.0 PT 10.0 INR 0.9 APTT 30 Sodium 134 Potassium 4.6 Chloride 98 Carbon Dioxide 24 Anion Gap 17 BUN 23 H Creatinine 1.1 Est GFR ( Amer) > 60 Est GFR (Non-Af Amer) > 60 POC Glucose (mg/dL) 88 Random Glucose 95 Calcium 8.8 Phosphorus 3.7 Magnesium 1.7 Total Bilirubin 0.7 AST 24 ALT 27 Alkaline Phosphatase 66 Total Protein 6.8 Albumin 4.1 Globulin 2.7 Albumin/Globulin Ratio 1.5 07/14/16 21:11 WBC RBC Hgb Hct MCV MCH MCHC RDW Plt Count MPV Neut % (Auto) Lymph % (Auto) [place] % (Auto) Eos % (Auto) Baso % (Auto) Neut # Lymph # [place] # Eos # Baso # PT INR APTT Sodium Potassium Chloride Carbon Dioxide Anion Gap BUN Creatinine Est GFR ( Amer) Est GFR (Non-Af Amer) POC Glucose (mg/dL) 226 H Random Glucose Calcium Phosphorus Magnesium Total Bilirubin AST ALT Alkaline Phosphatase Total Protein Albumin Globulin Albumin/Globulin Ratio
[2016-07-15 06:20] LABS: BASO % 0.7 % (0.0-2.0); EOS # 0.3 K/uL (0.0-0.7); EOS % 5.7 % (0.0-4.0); HEMATOCRIT 34.3 % (35.0-51.0); LYMPH # 1.3 K/uL (1.0-4.3); LYMPH % 24.2 % (20.0-40.0); MEAN CELL VOLUME 76.8 fL (80.0-94.0); MEAN CORPUSCULAR HEMOGLOBIN 25.2 pg (27.0-31.0); MEAN CORPUSCULAR HGB CONC 32.8 g/dL (33.0-37.0); MEAN PLATELET VOLUME 9.8 fL (7.2-11.7); MONO # 0.5 K/uL (0.0-0.8); MONO % 9.9 % (0.0-10.0); RED CELL DISTRIBUTION WIDTH 14.2 % (11.5-14.5); WHITE BLOOD COUNT 5.5 K/uL (4.8-10.8)
[2016-07-15 06:37] LABS: CHLORIDE 105 mmol/L (98-107); POTASSIUM 4.5 mmol/L (3.6-5.2); SODIUM 136 mmol/L (132-148)
[2016-07-15 06:39] LABS: GFR AFRICAN-AMERICAN > 60
[2016-07-15 06:40] LABS: ALB/GLOB RATIO 1.3 (1.0-2.1); ALKALINE PHOSPHATASE 65 U/L (38-126); ALT/SGPT 27 U/L (21-72); AST/SGOT 21 U/L (17-59); BILIRUBIN,TOTAL 0.3 mg/dL (0.2-1.3); BLOOD UREA NITROGEN 17 mg/dL (9-20); CALCIUM 8.8 mg/dl (8.6-10.4); CARBON DIOXIDE 19 mmol/L (22-30); GLUCOSE,RANDOM 184 mg/dL (75-110); MAGNESIUM 1.7 mg/dL (1.6-2.3); PHOSPHOROUS 3.4 mg/dL (2.5-4.5); TOTAL PROTEIN 6.4 g/dL (6.3-8.3)
--- NOTE | 2016-07-15 08:47 | CP.PCM.PN ---
Subjective - Date & Time of Evaluation Date of Evaluation: 07/15/16 Time of Evaluation: 08:25 - Subjective Subjective: Medical Attending Note Follow-up: Coronary Artery Disease, Hyperlipidemia, Hypertension, Diabetes Patient seen, examined, and case discussed with ICU. Patient awaiting transfer for CABG, time unknown. Patient denies acute complaints at this time. Family not present at bedside. Objective - Vital Signs/Intake and Output Vital Signs (last 24 hours): Temp Pulse Resp BP Pulse Ox 97.5 F L 69 13 128/59 L 97 07/14/16 13:40 07/15/16 07:06 07/15/16 07:06 07/15/16 07:06 07/15/16 07:06 Intake and Output: 07/15/16 07/15/16 06:59 18:59 Intake Total 760 0 Output Total 1650 Balance -890 0 - Medications Medications: Current Medications Albuterol (Ventolin Hfa 90 Mcg/Actuation (8 G)) 1 puff IH BID PRN PRN Reason: Shortness of Breath Enoxaparin Sodium (Lovenox) 60 mg SC Q12 [facility] Last Admin: 07/14/16 22:01 Dose: 60 mg Hydrochlorothiazide (Hydrodiuril) 25 mg PO DAILY [facility] Last Admin: 07/14/16 15:20 Dose: 25 mg Insulin Human Regular (Novolin R) 0 unit SC ACHS [facility] PRN Reason: Protocol Last Admin: 07/14/16 21:42 Dose: Not Given Lisinopril (Zestril) 20 mg PO DAILY [facility] Last Admin: 07/14/16 15:20 Dose: 20 mg Metoprolol Tartrate (Lopressor) 12.5 mg PO BID [facility] Last Admin: 07/14/16 18:00 Dose: 12.5 mg Pantoprazole Sodium (Protonix Inj) 40 mg IVP DAILY [facility] Last Admin: 07/14/16 18:11 Dose: 40 mg Rosuvastatin Calcium (Crestor) 40 mg PO HS [facility] Last Admin: 07/14/16 22:02 Dose: 40 mg - Labs Labs: 07/15/16 06:06 07/15/16 06:06 PT 10.0 SECONDS (9.7-12.2) 07/14/16 09:15 INR 0.9 07/14/16 09:15 APTT 30 SECONDS (21-34) 07/14/16 09:15 - Constitutional Appears: Non-toxic, No Acute Distress - Head Exam Head Exam: NORMAL INSPECTION - Eye Exam Eye Exam: EOMI - ENT Exam ENT Exam: Mucous Membranes Moist - Respiratory Exam Respiratory Exam: Clear to Ausculation Bilateral. absent: Rales, Rhonchi - Cardiovascular Exam Cardiovascular Exam: REGULAR RHYTHM, +S1, +S2 - GI/Abdominal Exam GI & Abdominal Exam: Soft, Normal Bowel Sounds. absent: Distended, Firm, Guarding, Rigid, Tenderness, Rebound - Extremities Exam Extremities Exam: Normal Capillary Refill. absent: Pedal Edema, Tenderness - Neurological Exam Neurological Exam: Alert, Awake, Oriented x3 - Psychiatric Exam Psychiatric exam: Normal Affect, Normal Mood - Skin Skin Exam: Dry, Normal Color, Warm Assessment and Plan (1) Coronary artery disease Status: Acute (2) Hypertension Status: Acute (3) Diabetes Status: Acute (4) Hyperlipidemia Status: Acute (5) Prophylactic measure Status: Acute - Assessment and Plan (Free Text) Assessment: Assessment/Plan 1) Coronary Artery Disease * Cardiac Cath (07/14/16) showing triple vessel disease * Dr. Johnston (camp head counselor)-->help appreciated * Dr. Martinez (cardiology)-->help appreciated * Discussed with cardiology, for possible transfer for for CABG at [facility] as soon as bed available * Continue home med: ASA 81mg PO daily * Lovenox 60mg Q12H * f/u ECHO check EF 2) Hypertension * Start Lopressor 12.5mg PO BID * Lisinopril 20 mg PO Daily * HCTZ 25 mg PO Daily * Monitor vital signs and adjust accordingly 3) Diabetes Mellitus, Type Two * uncontrolled * Accuchecks ACHS * ISS * A1C: 9.7 * Hold home meds: Metformin 1000mg PO BID, Glipizide XL 10mg PO BID, Repaglinide 1mg PO daily 4) Hyperlipidemia * Crestor 40mg PO HS * pending 5) Prophylaxis DVT: Lovenox 60mg SC Q12H, SCDs GI: Protonix 40mg IV Daily Vegetarian diet
[2016-07-15] MEDS ORDERED: Pantoprazole 40 mg EC Tab PO SCH (10:00)
--- NOTE | 2016-07-15 10:04 | CP.PCM.PN ---
<Jona Rowan - Last Filed: 07/15/16 16:43> Subjective - Date & Time of Evaluation Date of Evaluation: 07/15/16 Time of Evaluation: 10:01 - Subjective Subjective: Cardiology Progress Note Dr. Martinez Patient seen and examinaed at the bedside. The patient is in no acute distress. No acute events overnight. Nursing staff reports no issues. The patient reports improved substernal chest pain. He does note that the pain is still present. The patient is pending transfer to [facility] for CABG. Time of transfer is unknown at this point. Patient denies fever, chills, headahce, SOB , abdominal pain, N/V/D/C, changes i nbowel/bladder, and extremity paresthesias. Objective - Vital Signs/Intake and Output Vital Signs (last 24 hours): Temp Pulse Resp BP Pulse Ox 97.5 F L 69 13 128/59 L 97 07/14/16 13:40 07/15/16 07:06 07/15/16 07:06 07/15/16 07:06 07/15/16 07:06 Intake and Output: 07/15/16 07/15/16 06:59 18:59 Intake Total 760 140 Output Total 1650 250 Balance -890 -110 - Medications Medications: Current Medications Albuterol (Ventolin Hfa 90 Mcg/Actuation (8 G)) 1 puff IH BID PRN PRN Reason: Shortness of Breath Aspirin (Aspirin Chewable) 81 mg PO DAILY [facility] Enoxaparin Sodium (Lovenox) 60 mg SC Q12 [facility] Last Admin: 07/14/16 22:01 Dose: 60 mg Hydrochlorothiazide (Hydrodiuril) 25 mg PO DAILY [facility] Last Admin: 07/14/16 15:20 Dose: 25 mg Insulin Human Regular (Novolin R) 0 unit SC ACHS [facility] PRN Reason: Protocol Lisinopril (Zestril) 20 mg PO DAILY [facility] Last Admin: 07/14/16 15:20 Dose: 20 mg Metoprolol Tartrate (Lopressor) 12.5 mg PO BID [facility] Last Admin: 07/14/16 18:00 Dose: 12.5 mg Pantoprazole Sodium (Protonix Ec Tab) 40 mg PO DAILY [facility] Rosuvastatin Calcium (Crestor) 40 mg PO HS [facility] Last Admin: 07/14/16 22:02 Dose: 40 mg - Labs Labs: 07/15/16 06:06 07/15/16 06:06 PT 10.0 SECONDS (9.7-12.2) 07/14/16 09:15 INR 0.9 07/14/16 09:15 APTT 30 SECONDS (21-34) 07/14/16 09:15 - Constitutional Appears: Well, No Acute Distress - Head Exam Head Exam: ATRAUMATIC, NORMAL INSPECTION, NORMOCEPHALIC - Eye Exam Eye Exam: EOMI, Normal appearance, PERRL - ENT Exam ENT Exam: Mucous Membranes Moist, Normal Exam - Neck Exam Neck Exam: Full ROM, Normal Inspection. absent: Lymphadenopathy - Respiratory Exam Respiratory Exam: Clear to Ausculation Bilateral, NORMAL BREATHING PATTERN. absent: Rhonchi, Wheezes - Cardiovascular Exam Cardiovascular Exam: REGULAR RHYTHM, RRR, +S1, +S2. absent: Diastolic murmur, Murmur - GI/Abdominal Exam GI & Abdominal Exam: Soft, Normal Bowel Sounds. absent: Tenderness - Extremities Exam Extremities Exam: Full ROM, Normal Capillary Refill, Normal Inspection. absent : Joint Swelling, Pedal Edema Additional comments: cath site (right femoral) clean dressing C/D/I no bruit no swelling no erythema no exudate - Neurological Exam Neurological Exam: Alert, Awake, CN II-XII Intact, Oriented x3 - Skin Skin Exam: Dry, Intact, Normal Color, Warm Assessment and Plan (1) Diabetes Status: h (2) Coronary artery disease Status: h (3) Hyperlipidemia Status: h (4) Hypertension Status: h (5) S/P cardiac catheterization Status: c (6) Triple vessel coronary artery disease Status: c - Assessment and Plan (Free Text) Plan: 1.) Severe Triple Vessel Disease - the patient is s/p cardiac cath with Dr. Johnston revealing severe triple vessel disease - the patient is pending transfer to [facility] for cardiac bypass surgery- time unknown - Crestor 40mg PO hs - HCTZ 25mg PO daily - Metoprolol 12.5mg po bid - patient will be have primary care managed by the ICU team Case discussed with Dr. Juan Rowan PGY1 <Yumiko Martinez - Last Filed: 08/17/16 09:59> Objective - Vital Signs/Intake and Output Vital Signs (last 24 hours): Temp Pulse Resp BP Pulse Ox 97.6 F 72 9 L 125/72 98 07/15/16 16:00 07/15/16 19:42 07/15/16 19:42 07/15/16 19:42 07/15/16 19:42 - Labs Labs: 07/15/16 06:06 07/15/16 06:06 PT 10.0 SECONDS (9.7-12.2) 07/14/16 09:15 INR 0.9 07/14/16 09:15 APTT 30 SECONDS (21-34) 07/14/16 09:15 Attending/Attestation - Attestation I have personally seen and examined this patient.: Yes I have fully participated in the care of the patient.: Yes I have reviewed all pertinent clinical information, including history, physical exam and plan: Yes Notes (Text): 08/17/16 09:59 tx to [facility] triple vessel disease
--- NOTE | 2016-07-15 10:04 | RAD ---
HISTORY: hx copd COMPARISON: 06/20/2016 FINDINGS: LUNGS: No active pulmonary disease. PLEURA: No significant pleural effusion identified, no pneumothorax apparent. CARDIOVASCULAR: Normal. OSSEOUS STRUCTURES: No significant abnormalities. VISUALIZED UPPER ABDOMEN: Normal. OTHER FINDINGS: None. IMPRESSION: No active disease.
[2016-07-15 10:22] LABS: CHOLESTEROL 195 mg/dL (0-199)
[2016-07-15] MEDS: Enoxaparin 60 mg Syringe SC SCH (10:22)
--- NOTE | 2016-07-15 11:17 | CP.CCUPN ---
<Pancho Murillo - Last Filed: 07/15/16 13:24> CCU Subjective - Physician Review Subjective (Free Text): 07/15/16 11:15 Pt seen and examined at bedside. He is in no acute distress. He denies chest pain, palpitations, or SOB. Pt is for transfer to [facility] for CABG. Awaiting available bed. Critical Care Time Spent (in minutes): 30 CCU Objective - Vital Signs / Intake & Output Intake and Output (Last 8hrs): Intake & Output 07/14/16 07/15/16 07/15/16 22:59 06:59 14:59 Intake Total 1180 280 140 Output Total 1300 750 250 Balance -120 -470 -110 Intake: Intake, IV Amount 560 280 0 Left Forearm 560 280 Left Hand 0 Oral 620 0 140 Output: Urine 1300 750 250 Urine, Voided 1300 750 250 Emesis 0 Other: # Bowel Movements 0 - Physical Exam Head: Positive for: Atraumatic, Normocephalic Pupils: Positive for: PERRL Extroacular Muscles: Positive for: EOMI Conjunctiva: Positive for: Normal Mouth: Positive for: Moist Mucous Membranes Neck: Positive for: Normal Range of Motion. Negative for: Lymphadenopathy Respiratory/Chest: Positive for: Clear to Auscultation, Good Air Exchange. Negative for: Respiratory Distress, Accessory Muscle Use, Wheezes, Rales, Rhonchi Cardiovascular: Positive for: Regular Rate and Rhythm, Normal S1, S2. Negative for: Murmurs, Tachycardic Abdomen: Positive for: Normal Bowel Sounds. Negative for: Tenderness Upper Extremity: Positive for: Normal Inspection Lower Extremity: Positive for: Normal Inspection Skin: Positive for: Warm, Dry Psychiatric: Positive for: Alert, Oriented x 3 - Medications Active Medications: Active Medications Generic Name Dose Route Start Last Admin Trade Name Freq PRN Reason Stop Dose Admin Albuterol 1 puff 07/14/16 18:00 Ventolin Hfa 90 Mcg/Actuation (8 G) IH BID PRN Shortness of Breath Aspirin 81 mg 07/15/16 10:00 07/15/16 10:23 Aspirin Chewable PO 81 mg DAILY RAMIRO Administration Enoxaparin Sodium 60 mg 07/14/16 22:00 07/15/16 10:22 Lovenox SC 60 mg Q12 RAMIRO Administration Hydrochlorothiazide 25 mg 07/14/16 15:00 04/12/17 10:23 Hydrodiuril PO 25 mg DAILY RAMIRO Administration Insulin Human Regular 0 unit 07/15/16 09:15 Novolin R SC ACHS [facility] Protocol Lisinopril 20 mg 07/14/16 15:00 07/15/16 10:23 Zestril PO 20 mg DAILY RAMIRO Administration Metoprolol Tartrate 12.5 mg 07/14/16 18:00 07/15/16 11:05 Lopressor PO 12.5 mg BID RAMIRO Administration Pantoprazole Sodium 40 mg 07/15/16 10:00 07/15/16 10:23 Protonix Ec Tab PO 40 mg DAILY RAMIRO Administration Rosuvastatin Calcium 40 mg 07/14/16 22:00 07/14/16 22:02 Crestor PO 40 mg HS RAMIRO Administration - Patient Studies Lab Studies: Lab Studies 07/15/16 07/15/16 07/15/16 Range/Units 09:57 07:36 06:06 WBC 5.5 (4.8-10.8) K/uL RBC 4.46 (4.40-5.90) Mil/uL Hgb 11.2 L (12.0-18.0) g/dL Hct 34.3 L (35.0-51.0) % MCV 76.8 L (80.0-94.0) fL MCH 25.2 L (27.0-31.0) pg MCHC 32.8 L (33.0-37.0) g/dL RDW 14.2 (11.5-14.5) % Plt Count 162 (130-400) K/uL MPV 9.8 (7.2-11.7) fL Neut % (Auto) 59.5 (50.0-75.0) % Lymph % (Auto) 24.2 (20.0-40.0) % Potter % (Auto) 9.9 (0.0-10.0) % Eos % (Auto) 5.7 H (0.0-4.0) % Baso % (Auto) 0.7 (0.0-2.0) % Neut # 3.2 (1.8-7.0) K/uL Lymph # 1.3 (1.0-4.3) K/uL Potter # 0.5 (0.0-0.8) K/uL Eos # 0.3 (0.0-0.7) K/uL Baso # 0.0 (0.0-0.2) K/uL Sodium 136 (132-148) mmol/L Potassium 4.5 (3.6-5.2) mmol/L Chloride 105 (98-107) mmol/L Carbon Dioxide 19 L (22-30) mmol/L Anion Gap 17 (10-20) BUN 17 (9-20) mg/dL Creatinine 1.0 (0.8-1.5) MG/DL Est GFR ( Amer) > 60 Est GFR (Non-Af Amer) > 60 POC Glucose (mg/dL) 198 H (65-110) mg/dL Random Glucose 184 H (75-110) mg/dL Hemoglobin A1c 9.7 H (4.2-6.5) % Calcium 8.8 (8.6-10.4) mg/dl Phosphorus 3.4 (2.5-4.5) mg/dL Magnesium 1.7 (1.6-2.3) mg/dL Total Bilirubin 0.3 (0.2-1.3) mg/dL AST 21 (17-59) U/L ALT 27 (21-72) U/L Alkaline Phosphatase 65 (38-126) U/L Total Protein 6.4 (6.3-8.3) g/dL Albumin 3.6 (3.5-5.0) g/dL Globulin 2.7 (2.2-3.9) gm/dL Albumin/Globulin Ratio 1.3 (1.0-2.1) Triglycerides 280 H (0-149) mg/dL Cholesterol 195 (0-199) mg/dL LDL Cholesterol Direct 137 H (0-129) mg/dL HDL Cholesterol 30 (30-70) mg/dL Free T4 1.19 (0.78-2.19) ng/dL TSH 3rd Generation 0.90 (0.46-4.68) mIU/L 07/14/16 07/14/16 07/14/16 Range/Units 21:11 17:10 16:25 WBC 6.1 (4.8-10.8) K/uL RBC 4.41 (4.40-5.90) Mil/uL Hgb 11.3 L (12.0-18.0) g/dL Hct 33.9 L (35.0-51.0) % MCV 76.9 L (80.0-94.0) fL MCH 25.6 L (27.0-31.0) pg MCHC 33.3 (33.0-37.0) g/dL RDW 14.5 (11.5-14.5) % Plt Count 161 (130-400) K/uL MPV 8.8 (7.2-11.7) fL Neut % (Auto) 61.3 (50.0-75.0) % Lymph % (Auto) 24.8 (20.0-40.0) % Potter % (Auto) 7.8 (0.0-10.0) % Eos % (Auto) 5.3 H (0.0-4.0) % Baso % (Auto) 0.8 (0.0-2.0) % Neut # 3.7 (1.8-7.0) K/uL Lymph # 1.5 (1.0-4.3) K/uL Potter # 0.5 (0.0-0.8) K/uL Eos # 0.3 (0.0-0.7) K/uL Baso # 0.0 (0.0-0.2) K/uL Sodium 134 (132-148) mmol/L Potassium 4.6 (3.6-5.2) mmol/L Chloride 98 (98-107) mmol/L Carbon Dioxide 24 (22-30) mmol/L Anion Gap 17 (10-20) BUN 23 H (9-20) mg/dL Creatinine 1.1 (0.8-1.5) MG/DL Est GFR ( Amer) > 60 Est GFR (Non-Af Amer) > 60 POC Glucose (mg/dL) 226 H 88 (65-110) mg/dL Random Glucose 95 (75-110) mg/dL Hemoglobin A1c (4.2-6.5) % Calcium 8.8 (8.6-10.4) mg/dl Phosphorus 3.7 (2.5-4.5) mg/dL Magnesium 1.7 (1.6-2.3) mg/dL Total Bilirubin 0.7 (0.2-1.3) mg/dL AST 24 (17-59) U/L ALT 27 (21-72) U/L Alkaline Phosphatase 66 (38-126) U/L Total Protein 6.8 (6.3-8.3) g/dL Albumin 4.1 (3.5-5.0) g/dL Globulin 2.7 (2.2-3.9) gm/dL Albumin/Globulin Ratio 1.5 (1.0-2.1) Triglycerides (0-149) mg/dL Cholesterol (0-199) mg/dL LDL Cholesterol Direct (0-129) mg/dL HDL Cholesterol (30-70) mg/dL Free T4 (0.78-2.19) ng/dL TSH 3rd Generation (0.46-4.68) mIU/L Laboratory Results - last 24 hr 07/14/16 07/14/16 07/14/16 16:25 17:10 21:11 WBC 6.1 RBC 4.41 Hgb 11.3 L Hct 33.9 L MCV 76.9 L MCH 25.6 L MCHC 33.3 RDW 14.5 Plt Count 161 MPV 8.8 Neut % (Auto) 61.3 Lymph % (Auto) 24.8 Potter % (Auto) 7.8 Eos % (Auto) 5.3 H Baso % (Auto) 0.8 Neut # 3.7 Lymph # 1.5 Potter # 0.5 Eos # 0.3 Baso # 0.0 Sodium 134 Potassium 4.6 Chloride 98 Carbon Dioxide 24 Anion Gap 17 BUN 23 H Creatinine 1.1 Est GFR ( Amer) > 60 Est GFR (Non-Af Amer) > 60 POC Glucose (mg/dL) 88 226 H Random Glucose 95 Hemoglobin A1c Calcium 8.8 Phosphorus 3.7 Magnesium 1.7 Total Bilirubin 0.7 AST 24 ALT 27 Alkaline Phosphatase 66 Total Protein 6.8 Albumin 4.1 Globulin 2.7 Albumin/Globulin Ratio 1.5 Triglycerides Cholesterol LDL Cholesterol Direct HDL Cholesterol Free T4 TSH 3rd Generation 07/15/16 07/15/16 07/15/16 06:06 07:36 09:57 WBC 5.5 RBC 4.46 Hgb 11.2 L Hct 34.3 L MCV 76.8 L MCH 25.2 L MCHC 32.8 L RDW 14.2 Plt Count 162 MPV 9.8 Neut % (Auto) 59.5 Lymph % (Auto) 24.2 Potter % (Auto) 9.9 Eos % (Auto) 5.7 H Baso % (Auto) 0.7 Neut # 3.2 Lymph # 1.3 Potter # 0.5 Eos # 0.3 Baso # 0.0 Sodium 136 Potassium 4.5 Chloride 105 Carbon Dioxide 19 L Anion Gap 17 BUN 17 Creatinine 1.0 Est GFR ( Amer) > 60 Est GFR (Non-Af Amer) > 60 POC Glucose (mg/dL) 198 H Random Glucose 184 H Hemoglobin A1c 9.7 H Calcium 8.8 Phosphorus 3.4 Magnesium 1.7 Total Bilirubin 0.3 AST 21 ALT 27 Alkaline Phosphatase 65 Total Protein 6.4 Albumin 3.6 Globulin 2.7 Albumin/Globulin Ratio 1.3 Triglycerides 280 H Cholesterol 195 LDL Cholesterol Direct 137 H HDL Cholesterol 30 Free T4 1.19 TSH 3rd Generation 0.90 Fingerstick Blood Sugar Results: 88 Review of Systems - Constitutional Constitutional: absent: Fever, Chills - EENT Eyes: absent: Change in Vision Ears: absent: Decreased Hearing - Cardiovascular Cardiovascular: absent: Chest Pain, Chest Pain at Rest, Dyspnea, Dyspnea on Exertion, Pedal Edema - Respiratory Respiratory: absent: Cough, Dyspnea, Dyspnea on Exertion - Gastrointestinal Gastrointestinal: absent: Abdominal Pain, Nausea, Vomiting - Genitourinary Genitourinary: absent: Dysuria - Integumentary Integumentary: absent: Dry Skin, Jaundice - Neurological Neurological: absent: Abnormal Gait, Headaches, Tingling, Weakness - Psychiatric Psychiatric: absent: Anxiety, Depression - Endocrine Endocrine: absent: Polydipsia, Polyphagia, Polyuria Critical Care Progress Note - Nutrition Nutrition: Nutrition Category Date Time Status Consistent Carbohydrate [DIET] Diets 07/15/16 Breakfast Active Assessment/Plan - Assessment and Plan (Free Text) Assessment: 70 year old male with PMHx of HTN, hyperlipidemia, type two diabetes mellitus, s /p cardiac cath showing with multiple stent placements. For CABG as soon as bed available. Plan: Neuro: aao x3 in nad Cardio: Dr. Johnston, cardiology, consult: help appreciated Cardiac Cath showed triple vessel disease - CABG at [facility] when bed available Dr. Martinez, Cardio EP, consulted Continue home Lisinopril/HCTZ 20/25mg PO Daily Lopressor 12.5 mg PO BID Lovenox 60mg SC Q12H Crestor 40mg PO HS Echo: taken, f/u results Thyroid studies: WNL Lipid panel: Triglycerides elevated, LDL slightly elevated Heart Healthy Diet, with consistent carbohydrates Nephro/: BUN/Crea stable GFR: >60 Pulm: Pt denies hx of asthma/copd but chart indicates previous diagnoses Continue home med: Ventolin HFA 1 puff IH BID Endo: DM: ISS, increased to high Accuchecks Hold home metformin/glipizide/repaglinide A1C: 9.7, elevated Prophylaxis: GI: Protonix IV Daily DVT: SCDs, Lovenox 60mg SC Q12H <Nathan Saldana S - Last Filed: 07/15/16 17:06> CCU Objective - Vital Signs / Intake & Output Intake and Output (Last 8hrs): Intake & Output 07/15/16 07/15/16 07/15/16 06:59 14:59 22:59 Intake Total 280 490 Output Total 750 431 Balance -470 59 Intake: Intake, IV Amount 280 0 Left Forearm 280 Left Hand 0 Oral 0 490 Output: Urine 750 430 Urine, Voided 750 430 Stool 1 - Medications Active Medications: Active Medications Generic Name Dose Route Start Last Admin Trade Name Freq PRN Reason Stop Dose Admin Albuterol 1 puff 07/14/16 18:00 Ventolin Hfa 90 Mcg/Actuation (8 G) IH BID PRN Shortness of Breath Aspirin 81 mg 07/15/16 10:00 07/15/16 10:23 Aspirin Chewable PO 81 mg DAILY RAMIRO Administration Enoxaparin Sodium 60 mg 07/14/16 22:00 07/15/16 10:22 Lovenox SC 60 mg Q12 RAMIRO Administration Hydrochlorothiazide 25 mg 07/14/16 15:00 07/15/16 10:23 Hydrodiuril PO 25 mg DAILY RAMIRO Administration Insulin Human Regular 0 unit 07/15/16 09:15 07/15/16 16:25 Novolin R SC 2 unit ACHS RAMIRO Administration Protocol Lisinopril 20 mg 07/14/16 15:00 07/15/16 10:23 Zestril PO 20 mg DAILY RAMIRO Administration Metoprolol Tartrate 12.5 mg 07/14/16 18:00 07/15/16 11:05 Lopressor PO 12.5 mg BID RAMIRO Administration Pantoprazole Sodium 40 mg 07/15/16 10:00 07/15/16 10:23 Protonix Ec Tab PO 40 mg DAILY RAMIRO Administration Rosuvastatin Calcium 40 mg 07/14/16 22:00 07/14/16 22:02 Crestor PO 40 mg HS RAMIRO Administration - Patient Studies Lab Studies: Lab Studies 07/15/16 07/15/16 07/15/16 Range/Units 16:13 11:14 09:57 WBC (4.8-10.8) K/uL RBC (4.40-5.90) Mil/uL Hgb (12.0-18.0) g/dL Hct (35.0-51.0) % MCV (80.0-94.0) fL MCH (27.0-31.0) pg MCHC (33.0-37.0) g/dL RDW (11.5-14.5) % Plt Count (130-400) K/uL MPV (7.2-11.7) fL Neut % (Auto) (50.0-75.0) % Lymph % (Auto) (20.0-40.0) % Potter % (Auto) (0.0-10.0) % Eos % (Auto) (0.0-4.0) % Baso % (Auto) (0.0-2.0) % Neut # (1.8-7.0) K/uL Lymph # (1.0-4.3) K/uL Potter # (0.0-0.8) K/uL Eos # (0.0-0.7) K/uL Baso # (0.0-0.2) K/uL Sodium (132-148) mmol/L Potassium (3.6-5.2) mmol/L Chloride (98-107) mmol/L Carbon Dioxide (22-30) mmol/L Anion Gap (10-20) BUN (9-20) mg/dL Creatinine (0.8-1.5) MG/DL Est GFR ( Amer) Est GFR (Non-Af Amer) POC Glucose (mg/dL) 159 H 284 H (65-110) mg/dL Random Glucose (75-110) mg/dL Hemoglobin A1c (4.2-6.5) % Calcium (8.6-10.4) mg/dl Phosphorus (2.5-4.5) mg/dL Magnesium (1.6-2.3) mg/dL Total Bilirubin (0.2-1.3) mg/dL AST (17-59) U/L ALT (21-72) U/L Alkaline Phosphatase (38-126) U/L Total Protein (6.3-8.3) g/dL Albumin (3.5-5.0) g/dL Globulin (2.2-3.9) gm/dL Albumin/Globulin Ratio (1.0-2.1) Triglycerides 280 H (0-149) mg/dL Cholesterol 195 (0-199) mg/dL LDL Cholesterol Direct 137 H (0-129) mg/dL HDL Cholesterol 30 (30-70) mg/dL Free T4 (0.78-2.19) ng/dL TSH 3rd Generation (0.46-4.68) mIU/L 07/15/16 07/15/16 07/14/16 Range/Units 07:36 06:06 21:11 WBC 5.5 (4.8-10.8) K/uL RBC 4.46 (4.40-5.90) Mil/uL Hgb 11.2 L (12.0-18.0) g/dL Hct 34.3 L (35.0-51.0) % MCV 76.8 L (80.0-94.0) fL MCH 25.2 L (27.0-31.0) pg MCHC 32.8 L (33.0-37.0) g/dL RDW 14.2 (11.5-14.5) % Plt Count 162 (130-400) K/uL MPV 9.8 (7.2-11.7) fL Neut % (Auto) 59.5 (50.0-75.0) % Lymph % (Auto) 24.2 (20.0-40.0) % Potter % (Auto) 9.9 (0.0-10.0) % Eos % (Auto) 5.7 H (0.0-4.0) % Baso % (Auto) 0.7 (0.0-2.0) % Neut # 3.2 (1.8-7.0) K/uL Lymph # 1.3 (1.0-4.3) K/uL Potter # 0.5 (0.0-0.8) K/uL Eos # 0.3 (0.0-0.7) K/uL Baso # 0.0 (0.0-0.2) K/uL Sodium 136 (132-148) mmol/L Potassium 4.5 (3.6-5.2) mmol/L Chloride 105 (98-107) mmol/L Carbon Dioxide 19 L (22-30) mmol/L Anion Gap 17 (10-20) BUN 17 (9-20) mg/dL Creatinine 1.0 (0.8-1.5) MG/DL Est GFR ( Amer) > 60 Est GFR (Non-Af Amer) > 60 POC Glucose (mg/dL) 198 H 226 H (65-110) mg/dL Random Glucose 184 H (75-110) mg/dL Hemoglobin A1c 9.7 H (4.2-6.5) % Calcium 8.8 (8.6-10.4) mg/dl Phosphorus 3.4 (2.5-4.5) mg/dL Magnesium 1.7 (1.6-2.3) mg/dL Total Bilirubin 0.3 (0.2-1.3) mg/dL AST 21 (17-59) U/L ALT 27 (21-72) U/L Alkaline Phosphatase 65 (38-126) U/L Total Protein 6.4 (6.3-8.3) g/dL Albumin 3.6 (3.5-5.0) g/dL Globulin 2.7 (2.2-3.9) gm/dL Albumin/Globulin Ratio 1.3 (1.0-2.1) Triglycerides (0-149) mg/dL Cholesterol (0-199) mg/dL LDL Cholesterol Direct (0-129) mg/dL HDL Cholesterol (30-70) mg/dL Free T4 1.19 (0.78-2.19) ng/dL TSH 3rd Generation 0.90 (0.46-4.68) mIU/L 07/14/16 Range/Units 17:10 WBC 6.1 (4.8-10.8) K/uL RBC 4.41 (4.40-5.90) Mil/uL Hgb 11.3 L (12.0-18.0) g/dL Hct 33.9 L (35.0-51.0) % MCV 76.9 L (80.0-94.0) fL MCH 25.6 L (27.0-31.0) pg MCHC 33.3 (33.0-37.0) g/dL RDW 14.5 (11.5-14.5) % Plt Count 161 (130-400) K/uL MPV 8.8 (7.2-11.7) fL Neut % (Auto) 61.3 (50.0-75.0) % Lymph % (Auto) 24.8 (20.0-40.0) % Potter % (Auto) 7.8 (0.0-10.0) % Eos % (Auto) 5.3 H (0.0-4.0) % Baso % (Auto) 0.8 (0.0-2.0) % Neut # 3.7 (1.8-7.0) K/uL Lymph # 1.5 (1.0-4.3) K/uL Potter # 0.5 (0.0-0.8) K/uL Eos # 0.3 (0.0-0.7) K/uL Baso # 0.0 (0.0-0.2) K/uL Sodium 134 (132-148) mmol/L Potassium 4.6 (3.6-5.2) mmol/L Chloride 98 (98-107) mmol/L Carbon Dioxide 24 (22-30) mmol/L Anion Gap 17 (10-20) BUN 23 H (9-20) mg/dL Creatinine 1.1 (0.8-1.5) MG/DL Est GFR ( Amer) > 60 Est GFR (Non-Af Amer) > 60 POC Glucose (mg/dL) (65-110) mg/dL Random Glucose 95 (75-110) mg/dL Hemoglobin A1c (4.2-6.5) % Calcium 8.8 (8.6-10.4) mg/dl Phosphorus 3.7 (2.5-4.5) mg/dL Magnesium 1.7 (1.6-2.3) mg/dL Total Bilirubin 0.7 (0.2-1.3) mg/dL AST 24 (17-59) U/L ALT 27 (21-72) U/L Alkaline Phosphatase 66 (38-126) U/L Total Protein 6.8 (6.3-8.3) g/dL Albumin 4.1 (3.5-5.0) g/dL Globulin 2.7 (2.2-3.9) gm/dL Albumin/Globulin Ratio 1.5 (1.0-2.1) Triglycerides (0-149) mg/dL Cholesterol (0-199) mg/dL LDL Cholesterol Direct (0-129) mg/dL HDL Cholesterol (30-70) mg/dL Free T4 (0.78-2.19) ng/dL TSH 3rd Generation (0.46-4.68) mIU/L Laboratory Results - last 24 hr 07/14/16 07/14/16 07/15/16 17:10 21:11 06:06 WBC 6.1 5.5 RBC 4.41 4.46 Hgb 11.3 L 11.2 L Hct 33.9 L 34.3 L MCV 76.9 L 76.8 L MCH 25.6 L 25.2 L MCHC 33.3 32.8 L RDW 14.5 14.2 Plt Count 161 162 MPV 8.8 9.8 Neut % (Auto) 61.3 59.5 Lymph % (Auto) 24.8 24.2 Potter % (Auto) 7.8 9.9 Eos % (Auto) 5.3 H 5.7 H Baso % (Auto) 0.8 0.7 Neut # 3.7 3.2 Lymph # 1.5 1.3 Potter # 0.5 0.5 Eos # 0.3 0.3 Baso # 0.0 0.0 Sodium 134 136 Potassium 4.6 4.5 Chloride 98 105 Carbon Dioxide 24 19 L Anion Gap 17 17 BUN 23 H 17 Creatinine 1.1 1.0 Est GFR ( Amer) > 60 > 60 Est GFR (Non-Af Amer) > 60 > 60 POC Glucose (mg/dL) 226 H Random Glucose 95 184 H Hemoglobin A1c 9.7 H Calcium 8.8 8.8 Phosphorus 3.7 3.4 Magnesium 1.7 1.7 Total Bilirubin 0.7 0.3 AST 24 21 ALT 27 27 Alkaline Phosphatase 66 65 Total Protein 6.8 6.4 Albumin 4.1 3.6 Globulin 2.7 2.7 Albumin/Globulin Ratio 1.5 1.3 Triglycerides Cholesterol LDL Cholesterol Direct HDL Cholesterol Free T4 1.19 TSH 3rd Generation 0.90 07/15/16 07/15/16 07/15/16 07:36 09:57 11:14 WBC RBC Hgb Hct MCV MCH MCHC RDW Plt Count MPV Neut % (Auto) Lymph % (Auto) Potter % (Auto) Eos % (Auto) Baso % (Auto) Neut # Lymph # Potter # Eos # Baso # Sodium Potassium Chloride Carbon Dioxide Anion Gap BUN Creatinine Est GFR ( Amer) Est GFR (Non-Af Amer) POC Glucose (mg/dL) 198 H 284 H Random Glucose Hemoglobin A1c Calcium Phosphorus Magnesium Total Bilirubin AST ALT Alkaline Phosphatase Total Protein Albumin Globulin Albumin/Globulin Ratio Triglycerides 280 H Cholesterol 195 LDL Cholesterol Direct 137 H HDL Cholesterol 30 Free T4 TSH 3rd Generation 07/15/16 16:13 WBC RBC Hgb Hct MCV MCH MCHC RDW Plt Count MPV Neut % (Auto) Lymph % (Auto) Potter % (Auto) Eos % (Auto) Baso % (Auto) Neut # Lymph # Potter # Eos # Baso # Sodium Potassium Chloride Carbon Dioxide Anion Gap BUN Creatinine Est GFR ( Amer) Est GFR (Non-Af Amer) POC Glucose (mg/dL) 159 H Random Glucose Hemoglobin A1c Calcium Phosphorus Magnesium Total Bilirubin AST ALT Alkaline Phosphatase Total Protein Albumin Globulin Albumin/Globulin Ratio Triglycerides Cholesterol LDL Cholesterol Direct HDL Cholesterol Free T4 TSH 3rd Generation Critical Care Progress Note - Nutrition Nutrition: Nutrition Category Date Time Status Consistent Carbohydrate [DIET] Diets 07/15/16 Breakfast Active Attending/Attestation - Attestation I have personally seen and examined this patient.: Yes I have fully participated in the care of the patient.: Yes I have reviewed all pertinent clinical information: Yes Notes (Text): 07/15/16 17:05 patient seen and examined in the intensive care unit. Case discussed with staff in the morning rounds. denies chest pain, denies cough, denies fever or chills, Pt is for transfer to [facility] today for CABG
[2016-07-15] MEDS: (Novolin R) Insulin Human Regular 100 units/ml vial SC SCH ×3 (11:52→16:25)
--- NOTE | 2016-07-15 17:41 | CP.PCM.DIS ---
<Pancho Murillo - Last Filed: 07/15/16 17:39> Provider - Provider Date of Admission: 07/14/16 13:12 Attending physician: Lizeth Ann DO Primary care physician: Dr. Pro Branham Consults: Dr. Johnston (Cardiology) Dr. Martinez (Cardiology) Time Spent in preparation of Discharge (in minutes): 35 Diagnosis - Discharge Diagnosis (1) Triple vessel coronary artery disease Status: Acute Comment: see hospital course (2) Coronary artery disease Status: Chronic Comment: Patient admitted post Cardiac Cath. Triple vessel disease found. Transferred to [facility] for CABG. - Crestor 40 mg HS prescribed during stay (3) Diabetes Status: Chronic Comment: Hemoglobin A1C 9.7. Sliding scale while in ICU. - home DM meds held per Cardio (4) Hypertension Status: Chronic Comment: Continued home med: Lisinopril/HCTZ Hospital Course - Lab Results Lab Results: Most Recent Lab Values WBC 5.5 K/uL (4.8-10.8) 07/15/16 06:06 RBC 4.46 Mil/uL (4.40-5.90) 07/15/16 06:06 Hgb 11.2 g/dL (12.0-18.0) L 07/15/16 06:06 Hct 34.3 % (35.0-51.0) L 07/15/16 06:06 MCV 76.8 fL (80.0-94.0) L 07/15/16 06:06 MCH 25.2 pg (27.0-31.0) L 07/15/16 06:06 MCHC 32.8 g/dL (33.0-37.0) L 07/15/16 06:06 RDW 14.2 % (11.5-14.5) 07/15/16 06:06 Plt Count 162 K/uL (130-400) 07/15/16 06:06 MPV 9.8 fL (7.2-11.7) 07/15/16 06:06 Neut % (Auto) 59.5 % (50.0-75.0) 07/15/16 06:06 Lymph % (Auto) 24.2 % (20.0-40.0) 07/15/16 06:06 Mingo % (Auto) 9.9 % (0.0-10.0) 07/15/16 06:06 Eos % (Auto) 5.7 % (0.0-4.0) H 07/15/16 06:06 Baso % (Auto) 0.7 % (0.0-2.0) 07/15/16 06:06 Neut # 3.2 K/uL (1.8-7.0) 07/15/16 06:06 Lymph # 1.3 K/uL (1.0-4.3) 07/15/16 06:06 Mingo # 0.5 K/uL (0.0-0.8) 07/15/16 06:06 Eos # 0.3 K/uL (0.0-0.7) 07/15/16 06:06 Baso # 0.0 K/uL (0.0-0.2) 07/15/16 06:06 PT 10.0 SECONDS (9.7-12.2) 07/14/16 09:15 INR 0.9 07/14/16 09:15 APTT 30 SECONDS (21-34) 07/14/16 09:15 Sodium 136 mmol/L (132-148) 07/15/16 06:06 Potassium 4.5 mmol/L (3.6-5.2) 07/15/16 06:06 Chloride 105 mmol/L (98-107) 07/15/16 06:06 Carbon Dioxide 19 mmol/L (22-30) L 07/15/16 06:06 Anion Gap 17 (10-20) 07/15/16 06:06 BUN 17 mg/dL (9-20) 07/15/16 06:06 Creatinine 1.0 MG/DL (0.8-1.5) 07/15/16 06:06 Est GFR ( Amer) > 60 07/15/16 06:06 Est GFR (Non-Af Amer) > 60 07/15/16 06:06 POC Glucose (mg/dL) 159 mg/dL (65-110) H 07/15/16 16:13 Random Glucose 184 mg/dL (75-110) H 07/15/16 06:06 Hemoglobin A1c 9.7 % (4.2-6.5) H 07/15/16 06:06 Calcium 8.8 mg/dl (8.6-10.4) 07/15/16 06:06 Phosphorus 3.4 mg/dL (2.5-4.5) 07/15/16 06:06 Magnesium 1.7 mg/dL (1.6-2.3) 07/15/16 06:06 Total Bilirubin 0.3 mg/dL (0.2-1.3) 07/15/16 06:06 AST 21 U/L (17-59) 07/15/16 06:06 ALT 27 U/L (21-72) 07/15/16 06:06 Alkaline Phosphatase 65 U/L (38-126) 07/15/16 06:06 Total Protein 6.4 g/dL (6.3-8.3) 07/15/16 06:06 Albumin 3.6 g/dL (3.5-5.0) 07/15/16 06:06 Globulin 2.7 gm/dL (2.2-3.9) 07/15/16 06:06 Albumin/Globulin Ratio 1.3 (1.0-2.1) 07/15/16 06:06 Triglycerides 280 mg/dL (0-149) H 07/15/16 09:57 Cholesterol 195 mg/dL (0-199) 07/15/16 09:57 LDL Cholesterol Direct 137 mg/dL (0-129) H 07/15/16 09:57 HDL Cholesterol 30 mg/dL (30-70) 07/15/16 09:57 Free T4 1.19 ng/dL (0.78-2.19) 07/15/16 06:06 TSH 3rd Generation 0.90 mIU/L (0.46-4.68) 07/15/16 06:06 - Hospital Course Hospital Course: On admission: Patient is a 70 year old male of [place] descent, with PMHx of type two diabetes mellitus (diagnosed 20 years ago), hyperlipidemia, prostatectomy, and iron deficiency anemia, who presented to [facility] for cardiac catheterization. Cardiac cath showed multiple blockages. Patient reports onset of dyspnea with exertion. He used to be able to walk up stairs without issue but now has difficulty climbing 1 flight without becoming winded. Pt reports recent ED visit on 06/20/2016 for dyspnea, he was prescribed Advair and told to follow up with his PMD, Dr. Charlie Branham. His symptoms did not improve so he followed up, and was sent to Dr. Castillo, the american sign language interpreter. Pt was referred to Dr. Johnston for Cardiac cath. Hospital course: Pt admitted to ICU following cardiac cath, performed by Dr. Johnston, which showed triple vessel disease. During short ICU course, pt was continued on his home BP meds, and additionally placed on Lopressor. His diabetes meds were held and he was placed on sliding scale. Hemoglobin A1C was found to be elevated and patient was advised to improve diet, and follow up with PMD regarding future diabetes management. Dr. Martinez, EP Cardio, was consulted. ECHO performed but no official read at time of this writing. He was continued on home ASA 81mg. Pt was accepted for transfer to [facility] on 07/15/16 for CABG. Discharge Exam - Head Exam Head Exam: ATRAUMATIC, NORMAL INSPECTION, NORMOCEPHALIC - Eye Exam Eye Exam: EOMI Pupil Exam: PERRL - ENT Exam ENT Exam: Mucous Membranes Moist - Respiratory Exam Respiratory Exam: NORMAL BREATHING PATTERN. absent: Decreased Breath Sounds - Cardiovascular Exam Cardiovascular Exam: REGULAR RHYTHM, +S1, +S2 - GI/Abdominal Exam GI & Abdominal Exam: Soft. absent: Tenderness - Neurological Exam Neurological exam: Alert, Oriented x3 Discharge Plan - Follow Up Plan Condition: FAIR Disposition: Trans to Other Acute Care Hosp Instructions: Chest Pain (GEN), Sternal Precautions (GEN), Coronary Artery Bypass Graft (GEN), Hypertension (DC), Hypertension (GEN) <Lizeth Ann V - Last Filed: 07/15/16 21:47> Provider - Provider Date of Admission: 07/14/16 13:12 Attending physician: Lizeth Ann DO Diagnosis - Discharge Diagnosis (1) Coronary artery disease Status: Chronic (2) Hypertension Status: Chronic (3) Diabetes Status: Chronic (4) Hyperlipidemia Status: Chronic (5) Prophylactic measure Status: Acute Hospital Course - Lab Results Lab Results: Most Recent Lab Values WBC 5.5 K/uL (4.8-10.8) 07/15/16 06:06 RBC 4.46 Mil/uL (4.40-5.90) 07/15/16 06:06 Hgb 11.2 g/dL (12.0-18.0) L 07/15/16 06:06 Hct 34.3 % (35.0-51.0) L 07/15/16 06:06 MCV 76.8 fL (80.0-94.0) L 07/15/16 06:06 MCH 25.2 pg (27.0-31.0) L 07/15/16 06:06 MCHC 32.8 g/dL (33.0-37.0) L 07/15/16 06:06 RDW 14.2 % (11.5-14.5) 07/15/16 06:06 Plt Count 162 K/uL (130-400) 07/15/16 06:06 MPV 9.8 fL (7.2-11.7) 07/15/16 06:06 Neut % (Auto) 59.5 % (50.0-75.0) 07/15/16 06:06 Lymph % (Auto) 24.2 % (20.0-40.0) 07/15/16 06:06 Mingo % (Auto) 9.9 % (0.0-10.0) 07/15/16 06:06 Eos % (Auto) 5.7 % (0.0-4.0) H 07/15/16 06:06 Baso % (Auto) 0.7 % (0.0-2.0) 07/15/16 06:06 Neut # 3.2 K/uL (1.8-7.0) 07/15/16 06:06 Lymph # 1.3 K/uL (1.0-4.3) 07/15/16 06:06 Mingo # 0.5 K/uL (0.0-0.8) 07/15/16 06:06 Eos # 0.3 K/uL (0.0-0.7) 07/15/16 06:06 Baso # 0.0 K/uL (0.0-0.2) 07/15/16 06:06 PT 10.0 SECONDS (9.7-12.2) 07/14/16 09:15 INR 0.9 07/14/16 09:15 APTT 30 SECONDS (21-34) 07/14/16 09:15 Sodium 136 mmol/L (132-148) 07/15/16 06:06 Potassium 4.5 mmol/L (3.6-5.2) 07/15/16 06:06 Chloride 105 mmol/L (98-107) 07/15/16 06:06 Carbon Dioxide 19 mmol/L (22-30) L 07/15/16 06:06 Anion Gap 17 (10-20) 07/15/16 06:06 BUN 17 mg/dL (9-20) 07/15/16 06:06 Creatinine 1.0 MG/DL (0.8-1.5) 07/15/16 06:06 Est GFR ( Amer) > 60 07/15/16 06:06 Est GFR (Non-Af Amer) > 60 07/15/16 06:06 POC Glucose (mg/dL) 159 mg/dL (65-110) H 07/15/16 16:13 Random Glucose 184 mg/dL (75-110) H 07/15/16 06:06 Hemoglobin A1c 9.7 % (4.2-6.5) H 07/15/16 06:06 Calcium 8.8 mg/dl (8.6-10.4) 07/15/16 06:06 Phosphorus 3.4 mg/dL (2.5-4.5) 07/15/16 06:06 Magnesium 1.7 mg/dL (1.6-2.3) 07/15/16 06:06 Total Bilirubin 0.3 mg/dL (0.2-1.3) 07/15/16 06:06 AST 21 U/L (17-59) 07/15/16 06:06 ALT 27 U/L (21-72) 07/15/16 06:06 Alkaline Phosphatase 65 U/L (38-126) 07/15/16 06:06 Total Protein 6.4 g/dL (6.3-8.3) 07/15/16 06:06 Albumin 3.6 g/dL (3.5-5.0) 07/15/16 06:06 Globulin 2.7 gm/dL (2.2-3.9) 07/15/16 06:06 Albumin/Globulin Ratio 1.3 (1.0-2.1) 07/15/16 06:06 Triglycerides 280 mg/dL (0-149) H 07/15/16 09:57 Cholesterol 195 mg/dL (0-199) 07/15/16 09:57 LDL Cholesterol Direct 137 mg/dL (0-129) H 07/15/16 09:57 HDL Cholesterol 30 mg/dL (30-70) 07/15/16 09:57 Free T4 1.19 ng/dL (0.78-2.19) 07/15/16 06:06 TSH 3rd Generation 0.90 mIU/L (0.46-4.68) 07/15/16 06:06 Attending/Attestation - Attestation I have personally seen and examined this patient.: Yes I have fully participated in the care of the patient.: Yes I have reviewed all pertinent clinical information, including history, physical exam and plan: Yes Notes (Text): Patient seen, examined and case discussed with ICU and cardiologists on board. Patient seen this morning, details per my progress note. Agree with the discharge summary stated by the resident. Patient underwent cardiac cath revealing triple vessel disease, recommended for CABG surgery, arrangements as per cardiology, patient accepted and transferred to [facility] for CABG procedure later this evening; further management per CT surgery at [facility]. This is a summary of patient's hospitalization. Please review body of the EMR for further details. Assessment/Plan 1) Coronary Artery Disease * Cardiac Cath (07/14/16) showing triple vessel disease * Dr. Johnston (roulette dealer)-->help appreciated * Dr. Martinez (cardiology)-->help appreciated * Transferred to [facility] this evening in preparation for CABG procuedure * Continue home med: ASA 81mg PO daily * Lovenox 60mg Q12H * Completed echo; pending official report 2) Hypertension * Lopressor 12.5mg PO BID * Lisinopril 20 mg PO Daily * HCTZ 25 mg PO Daily * Monitor vital signs and adjust accordingly 3) Diabetes Mellitus, Type Two * uncontrolled * Accuchecks ACHS * ISS * A1C: 9.7 * Hold home meds: Metformin 1000mg PO BID, Glipizide XL 10mg PO BID, Repaglinide 1mg PO daily 4) Hyperlipidemia * Crestor 40mg PO HS * elevated triglycerides, and LDL, and low HDL 5) Prophylaxis * DVT: Lovenox 60mg SC Q12H, SCDs * GI: Protonix 40mg IV Daily * Vegetarian diet
[2016-07-15 19:59] VITALS: TEMP 97.6
[2016-07-15 20:02] VITALS: BP 125/72; PULSE 72; RESP 9; O2SAT 98
--- NOTE | 2016-07-16 14:11 | CARD ---
APPROVED REPORT EXAM: Two-dimensional and M-mode echocardiogram with Doppler and color Doppler. Other Information Quality : GoodRhythm : NSR INDICATION Dyspnea S/P CATH RISK FACTORS Hyperlipidemia Diabetes M-Mode DIMENSIONS RVDd1.66 (2.1-3.2cm)Left Atrium (MM)2.73 (2.5-4.0cm) IVSd0.81 (0.7-1.1cm)Aortic Root2.41 (2.2-3.7cm) LVDd4.07 (4.0-5.6cm)Aortic Cusp Exc.1.89 (1.5-2.0cm) PWd0.81 (0.7-1.1cm)FS (%) 43 % LVDs2.31 (2.0-3.8cm)LVEF (%)75 (>50%) Mitral Valve MV E Enwnnbwo08.2cm/sMV A Garyakzf48.3cm/sE/A ratio0.8 TDI E/Lateral E'0.0E/Medial E'0.0 Tricuspid Valve TR Peak Wnxblyxr220na/sTR Peak Gr.[id number] LEFT VENTRICLE The left ventricle is normal size. There is normal left ventricular wall thickness. The left ventricular function is normal. The left ventricular ejection fraction is within the normal range. No regional wall motion abnormalities noted. Transmitral Doppler flow pattern is Grade I-abnormal relaxation pattern. No left ventricle thrombus noted on this study. There is no ventricular septal defect visualized. There is no left ventricular aneurysm. There is no mass noted in the left ventricle. RIGHT VENTRICLE The right ventricle is normal size. There is normal right ventricular wall thickness. The right ventricular systolic function is normal. ATRIA The left atrium size is normal. The right atrium size is normal. The interatrial septum is intact with no evidence for an atrial septal defect. AORTIC VALVE The aortic valve is normal in structure and function. There is mild aortic regurgitation. There is no aortic valvular stenosis. There is no aortic valvular vegetation. MITRAL VALVE The mitral valve is normal in structure and function. There is no evidence of mitral valve prolapse. There is no mitral valve stenosis. There is no mitral valve regurgitation noted. TRICUSPID VALVE The tricuspid valve is normal in structure and function. There is mild tricuspid regurgitation. Right ventricular systolic pressure is estimated at less than 30 mmHg. There is no tricuspid valve prolapse or vegetation. There is no tricuspid valve stenosis. PULMONIC VALVE The pulmonary valve is normal in structure and function. There is no pulmonic valvular regurgitation. There is no pulmonic valvular stenosis. GREAT VESSELS The aortic root is normal in size. The ascending aorta is normal in size. The pulmonary artery is normal. The IVC is normal in size and collapses >50% with inspiration. PERICARDIAL EFFUSION The pericardium appears normal. There is no pleural effusion. <Conclusion> The left ventricular function is normal. The left ventricular ejection fraction is within the normal range. No regional wall motion abnormalities noted. Transmitral Doppler flow pattern is Grade I-abnormal relaxation pattern. LV filling pressures are normal There is mild aortic regurgitation.
--- NOTE | 2016-08-22 19:53 | CARDCATH ---
PROCEDURE DATE: 07/14/2016 PROCEDURES: 1. Left heart catheterization. 2. Coronary angiogram. CLINICAL INDICATIONS: 1. Exertional dyspnea. 2. Diabetes. 3. Hypertension. 4. Hyperlipidemia. REFERRING PHYSICIANS: 1. Dr. Shane Mauro. 2. Dr. Yumiko Martinez. PERFORMING PHYSICIAN: Dr. Adolfo Johsnton. PROCEDURE: After informed consent, the patient was prepped and draped in the usual sterile fashion. 2% lidocaine was given in the right groin for local anesthesia. Using micropuncture technique, 6-Fr ench sheath was introduced into the right common femoral artery. Using the usual diagnostic catheter s, left heart catheterization and coronary angiogram was performed. The patient tolerated the proced ure well. FINDINGS: 1. Left main coronary artery is patent. 2. LAD has a diffuse narrowing from proximal to distal region. The narrowing is approximately 90%. Diagonal branch has a 99% ostial stenosis. 3. Left circumflex is patent. However, obtuse marginal has a 90% proximal stenosis. 4. Right coronary artery is dominant. Right coronary artery has multiple lesions right mcgrath ry artery has 80% stenosis. Mid right coronary artery has 70% stenosis. Distal right coronary arter y has 90% stenosis. 5. LV ejection fraction is 60%. No wall motion abnormalities noted. EDP is 17. No gradient across the aortic valve. IMPRESSION: 1. Severe triple vessel disease. 2. Normal left ventricle systolic function. 3. Diabetes. RECOMMENDATIONS: Recommend coronary artery bypass surgery. Adolfo Johnston MD cc: [id number] TT: 08/22/2016 19:53:19 az
== END 2016-07-15 20:31 | disposition short-term general hospital (02) | DRG 287 ==
LOC: C.CATHLAB 08:51 → C.9I 13:12
PROVIDERS: ADMIT Hospitalist; ATTEND Hospitalist
PROC: B2011ZZ Plain Radiography of Multiple Coronary Arteries using Low Osmolar Contrast (ICD-10-PCS; 2016-07-14)
PROC: B2051ZZ Plain Radiography of Left Heart using Low Osmolar Contrast (ICD-10-PCS; 2016-07-14)
PROC: 4A023N7 Measurement of Cardiac Sampling and Pressure, Left Heart, Percutaneous Approach (ICD-10-PCS; principal; 2016-07-14 13:00)
DX: I25.10 Atherosclerotic heart disease of native coronary artery without angina pectoris (principal); E11.9 Type 2 diabetes mellitus without complications; I10 Essential (primary) hypertension; E78.5 Hyperlipidemia, unspecified; Z95.5 Presence of coronary angioplasty implant and graft

== ENCOUNTER 2016-08-30 19:41 | Inpatient (IN) | payer MEDICARE, OTHER ==
[2016-08-30 19:41] VITALS: BMI 22.6
[2016-08-30 19:58] VITALS: RESP 20
[2016-08-30] MEDS ORDERED: Aspirin 325 mg EC Tablets PO STA (19:58)
--- NOTE | 2016-08-30 19:59 | C.PDOC ---
History Of Present Illness Pt is 6 weeks s/p CABG and presents with chest pain since yesterday. Dull, aching , non radiating chest discomfort. Speaking in complete sentences. No f/c/ n/v Time Seen by Provider: 08/30/16 19:58 Chief Complaint (Nursing): Chest Pain History Per: Patient History/Exam Limitations: no limitations Onset/Duration Of Symptoms: Days (1) Current Symptoms Are (Timing): Still Present Context: Other Severity: Moderate Pain Scale Rating Of: 4 Quality: Dull, Aching Associated Symptoms: Dyspnea. denies: Nausea Modifying Factors: None Exacerbating Factors: None Alleviating Factors: None Recent travel outside of the [place]: No Additional History Per: Family Past Medical History Reviewed: Historical Data, Nursing Documentation, Vital Signs Vital Signs: Last Vital Signs Temp 98.0 F 08/30/16 19:54 Pulse 72 08/30/16 19:54 Resp 20 08/30/16 19:54 BP 146/46 L 08/30/16 19:54 Pulse Ox 99 08/30/16 20:07 - Medical History PMH: Asthma, COPD, HTN, Hypercholesterolemia Denies: Chronic Kidney Disease - [facility] Procedures MEASURE OF CARDIAC SAMPL & PRESSURE, L HEART, PERC APPROACH (07/14/16) PLAIN RADIOGRAPHY OF LEFT HEART USING LOW OSMOLAR CONTRAST (07/14/16) PLAIN RADIOGRAPHY OF MULT COR ART USING L OSM CONTRAST (07/14/16) Family History: States: No Known Family Hx - Social History Hx Alcohol Use: No Hx Substance Use: No - Immunization History Hx Tetanus Toxoid Vaccination: No Hx Influenza Vaccination: Yes Hx Pneumococcal Vaccination: Yes Review Of Systems Constitutional: Negative for: Fever, Chills Eyes: Negative for: Redness ENT: Negative for: Throat Pain Cardiovascular: Positive for: Chest Pain, Orthopnea. Negative for: Palpitations Respiratory: Positive for: Shortness of Breath Gastrointestinal: Negative for: Nausea, Vomiting, Abdominal Pain Genitourinary: Negative for: Dysuria Musculoskeletal: Negative for: Back Pain Skin: Negative for: Rash, Lesions, Jaundice, Bruising Neurological: Negative for: Weakness Psych: Negative for: Anxiety Physical Exam - Physical Exam Appears: Non-toxic Skin: Warm, Dry Head: Normacephalic Eye(s): bilateral: Normal Inspection Oral Mucosa: Moist Neck: Trachea Midline, Supple Chest: Symmetrical, Other (healed cabg scar) Cardiovascular: Rhythm Regular Respiratory: No Rales, No Rhonchi, No Wheezing Gastrointestinal/Abdominal: Soft, No Tenderness, No Distention Back: Normal Inspection Extremity: Normal ROM Extremity: Bilateral: Atraumatic, No Pedal Edema Neurological/Psych: Oriented x3, Normal Speech, Normal Cognition Gait: Steady ED Course And Treatment - Laboratory Results Result Diagrams: 08/30/16 20:04 08/30/16 20:04 ECG: Interpreted By Me, Viewed By Me ECG Rhythm: Sinus Rhythm (69), Nonspecific Changes O2 Sat by Pulse Oximetry: 99 Pulse Ox Interpretation: Normal - Radiology CXR: Interpreted by Me, Viewed By Me CXR Interpretation: Yes: Other (CABG). No: Infiltrates, Fracture, Pnemothorax Progress Note: cardiac work, up, asa, Disposition Discussed With Dr.: Isaias Sanchez Comment: acecpted the pt on his service and took over the care at 9:30 PM Doctor Will See Patient In The: Hospital Counseled Patient/Family Regarding: Studies Performed, Diagnosis - Disposition Disposition: HOSPITALIZED Disposition Time: 19:58 Condition: FAIR - POA Present On Arrival: None - Clinical Impression Clinical Impression: Chest pain, CHF (congestive heart failure), Diabetes Decision To Admit - Pt Status Changed To: Hospital Disposition Of: Inpatient - Admit Certification Admit to Inpatient:: After my assessment, the patient will require hospitalization for at least two midnights. This is because of the severity of symptoms shown, intensity of services needed, and/or the medical risk in this patient being treated as an outpatient. - InPatient: Physician Admission Certification: I certify that this patient requires 2 or more midnights of care for the following reason:: After my assessment, the patient will require hospitalization for at least two midnights. This is because of the severity of symptoms shown, intensity of services needed, and/or the medical risk in this patient being treated as an outpatient. - . Bed Request Type: Telemetry Admitting Physician: Isaias Sanchez Patient Diagnosis: Chest pain, CHF (congestive heart failure), Diabetes
[2016-08-30 20:07] LABS: BASO % 0.5 % (0.0-2.0); EOS # 0.4 K/uL (0.0-0.7); HEMATOCRIT 29.7 % (35.0-51.0); LYMPH # 1.9 K/uL (1.0-4.3); LYMPH % 33.2 % (20.0-40.0); MEAN CELL VOLUME 81.9 fL (80.0-94.0); MEAN CORPUSCULAR HEMOGLOBIN 26.6 pg (27.0-31.0); MEAN CORPUSCULAR HGB CONC 32.4 g/dL (33.0-37.0); MEAN PLATELET VOLUME 8.5 fL (7.2-11.7); MONO # 0.6 K/uL (0.0-0.8); NRBC % 0.1 % (0.0-2.0); RED CELL DISTRIBUTION WIDTH 15.5 % (11.5-14.5); WHITE BLOOD COUNT 5.6 K/uL (4.8-10.8)
[2016-08-30 20:17] LABS: CHLORIDE 105 mmol/L (98-107); SODIUM 138 mmol/L (132-148)
[2016-08-30 20:20] LABS: ALB/GLOB RATIO 1.4 (1.0-2.1); ALKALINE PHOSPHATASE 60 U/L (38-126); ALT/SGPT 14 U/L (21-72); AST/SGOT 18 U/L (17-59); BILIRUBIN,TOTAL 0.6 mg/dL (0.2-1.3); BLOOD UREA NITROGEN 17 mg/dL (9-20); CARBON DIOXIDE 23 mmol/L (22-30); GFR AFRICAN-AMERICAN > 60; GLUCOSE,RANDOM 116 mg/dL (75-110); TOTAL PROTEIN 6.5 g/dL (6.3-8.3)
[2016-08-30 20:21] LABS: CALCIUM 9.1 mg/dl (8.6-10.4)
[2016-08-30] MEDS: (Novolin R) Insulin Human Regular 100 units/ml vial SC SCH (21:56)
[2016-08-30] MEDS ORDERED: ROSUVASTATIN CALCIUM 40 MG PO SCH (22:00)
[2016-08-30 22:17] LABS: URINE BILIRUBIN NEGATIVE (NEGATIVE); URINE BLOOD NEGATIVE (NEGATIVE); URINE COLOR Colorless (YELLOW); URINE GLUCOSE (UA) NORMAL (Normal); URINE KETONE NEGATIVE (NEGATIVE); URINE LEUKOCYTE ESTERASE NEG Leu/uL (Negative); URINE PROTEIN NEGATIVE (NEGATIVE); URINE UROBILINOGEN NORMAL mg/dL (0.2-1.0)
[2016-08-31] MEDS: (Novolin R) Insulin Human Regular 100 units/ml vial SC SCH ×4 (08:07→21:24)
[2016-08-31] MEDS ORDERED: LISINOPRIL PO SCH ×2 (10:00)
[2016-08-31] MEDS ORDERED: HYDROCHLOROTHIAZIDE PO SCH ×2 (10:00)
[2016-08-31] MEDS ORDERED: Pneumococcal 23-Valent Vaccine IM ONE (10:00)
[2016-08-31] MEDS: Naproxen 550 mg Tab PO SCH ×2 (10:15→17:44)
[2016-08-31] MEDS: Enoxaparin 30 mg Syringe SC SCH ×2 (10:15→21:20)
[2016-08-31] MEDS: Pantoprazole 40 mg EC Tab PO SCH (10:15)
--- NOTE | 2016-08-31 10:35 | RAD ---
PROCEDURE: CHEST RADIOGRAPH, 1 VIEW. Portable study 20:00. HISTORY: chest pain COMPARISON: 07/15/2016. FINDINGS: LUNGS: Clear. PLEURA: No pneumothorax or pleural fluid seen. CARDIOVASCULAR: No radiographic findings to suggest acute or significant cardiovascular disease. Incidental Finding(s): Postoperative changes related to sternotomy. OSSEOUS STRUCTURES: No significant abnormalities. VISUALIZED UPPER ABDOMEN: Normal. OTHER FINDINGS: None. IMPRESSION: No active disease. No acute/significant interval changes.
--- NOTE | 2016-08-31 13:42 | CP.PCM.HP ---
History of Present Illness - History of Present Illness History of Present Illness: COMPREHENSIVE HISTORY & PHYSICAL EXAM HPI 71 YEAR MALE WITH S/P 6 WEEKS CABG SEC. TO 3 V CAD EXPERIENCED CP. ATYPICAL , LEFT SIDE , NON RADIATING INCREASE ON BREATHING PT ADMITTED FOR FURTHER EVALUATION PAST HIST. HTN/HYPERCHOLESTEROL CABG 3 V CAD T2DM PERSONAL HIST: Smoking. N Alcohol. N Allergy N Travel_- . FAMILY HIST : ROS : Constitutional: Negative for weight change, chills, night sweats, fatigue and usage of assist device. Eyes: Negative for redness, swelling, itching, discharge, vision changes, blurry vision, double vision, glaucoma, cataracts, Ears: Negative for hearing loss, ringing, , tinnitus, vertigo Nose: Negative for rhinorrhea, stuffiness, sniffing, itching, postnasal drip, discoloration, nasal congestion and epistaxis. Throat: Negative for throat clearing, sore throat, hoarseness, difficulty swallowing and difficulty speaking. Respiratory: Negative for cough, chest tightness, sputum or phlegm, chronic cough, hemoptysis, wheezing, snoring at night, pleuritic chest pain and daytime somnolence. Cardiovascular: POS for chest pain, palpitations, orthopnea, NO PND, Edema of legs, leg cramps, angina, claudication, , irregular heartbeat, Neurology: Negative for irritability, muscle weakness, numbness and tingling, seizures, tremors, migraines, slurred speech, syncope, memory loss, mood changes , recurrent headaches Gastrointestinal: Negative for difficulty swallowing, diarrhea, constipation, black stools, rectal bleeding, nausea, flatulence, reflux, poor appetite, changes in bowel habits, abdominal pain Genitourinary: Negative for frequent urination, hematuria, discharge, incontinence, urinary retention, frequent UTI, Psychiatric: Negative for depression, anxiety/panic, suicidal tendencies, Musculoskeletal: Negative for swollen joints, back pain, , neck pain, morning stiffness of joints, . Skin: Negative for rash, ulcers, itching, dry skin and pigmented lesions. P/E: Constitutional: Appears stated age and in no apparent distress. Head: Normocephalic. Ears: External ear canals patent without inflammation. Tympanic membranes intact with normal light reflex and landmark. Eyes: Pupils are central, bilaterally equal, symmetrical and reacts to light with normal movements and no icterus or pallor. Nose: External nares are patent. Mucosa is pink Mouth-Throat: Good general appearance and condition. No post-pharyngeal/oropharyngeal erythema and tonsillar hypertrophy. Good dental hygiene. Neck-Lymphatic: Neck is supple with normal ROM, no thyromegaly, lymph nodes or masses. JVD is normal with no carotid bruit. Lungs: Clear to percussion and auscultation with bilateral normal air entry. Cardiovascular: SURGICAL SCAR INTAKE S1 and S2 are normal with no murmurs, gallops and rub. GI Exam: No hepatomegaly. Abdomen is soft and non-tender. No Organomegaly , masses or hernias are evident and bowel sounds are normal and active. Neurology: Higher function and all cranial nerves intact, with no gross motor or sensory deficit. Superficial and deep reflexes are normal with downwards planters. No cerebellar deficit with normal gait. Musculoskeletal: No tender spots with normal curvature of the spine with no swelling or restricted ROM of the small and large joints. Extremities: Homans sign absent. Intact pulses with no pitting edema, calf tenderness or skin color changes. Skin: No rash, eruptions or abnormal skin pigmentation LAB/RADIOLOGY: ASSESMENT : S/P RECENT CABG WITH CP, MAY SEC TO HEALING WOUND/COMPETATIVE CORONARY BLOOD FLOW OR BLOCKAGE OF GRAFT HTN /T2DM PLAN: ACS PROTOCOL Present on Admission - Present on Admission Any Indicators Present on Admission: No Past Patient History - Infectious Disease Hx of Infectious Diseases: None - Past Medical History & Family History Past Medical History?: Yes - Past Social History Smoking Status: Former Smoker - CARDIAC Hx Hypercholesterolemia: Yes Hx Hypertension: Yes - PULMONARY Hx Asthma: Yes Hx Chronic Obstructive Pulmonary Disease (COPD): No - NEUROLOGICAL Hx Neurological Disorder: No - HEENT Hx HEENT Problems: Yes Hx Cataracts: Yes (RIGHT) - RENAL Hx Chronic Kidney Disease: No - ENDOCRINE/METABOLIC Hx Endocrine Disorders: Yes Hx Diabetes Mellitus Type 2: Yes - HEMATOLOGICAL/ONCOLOGICAL Hx Blood Disorders: No - INTEGUMENTARY Hx Dermatological Problems: Yes (PIGMENT LOSS) - MUSCULOSKELETAL/RHEUMATOLOGICAL Hx Musculoskeletal Disorders: Yes Hx Falls: No Hx Osteoarthritis: Yes (KNEES) - GASTROINTESTINAL Hx Gastrointestinal Disorders: No - GENITOURINARY/GYNECOLOGICAL Hx Genitourinary Disorders: Yes Hx Prostate Problems: Yes - PSYCHIATRIC Hx Substance Use: No - SURGICAL HISTORY Hx Surgeries: Yes Hx Cataract Extraction: Yes (RIGHT) Other/Comment: prostate sx - ANESTHESIA Hx Anesthesia: Yes Hx Anesthesia Reactions: No Hx Malignant Hyperthermia: No Meds Allergies/Adverse Reactions: Allergies Allergy/AdvReac Type Severity Reaction Status Date / Time No Known Allergies Allergy Verified 08/30/16 19:58 Results - Vital Signs Recent Vital Signs: Last Vital Signs Temp 97.6 F 08/31/16 08:08 Pulse 65 08/31/16 08:08 Resp 20 08/31/16 08:08 BP 123/70 08/31/16 08:08 Pulse Ox 99 08/31/16 08:08 - Labs Result Diagrams: 08/30/16 20:04 08/30/16 20:04 Labs: Laboratory Results - last 24 hr 08/30/16 08/30/16 08/31/16 21:53 22:12 04:06 POC Glucose (mg/dL) 103 Total Creatine Kinase 42 L CK-MB (Mass) 0.74 Troponin I, Quant < 0.0120 Urine Color Colorless Urine Clarity Clear Urine pH 5.0 Ur Specific [place] 1.004 Urine Protein Negative Urine Glucose (UA) Normal Urine Ketones Negative Urine Blood Negative Urine Nitrate Negative Urine Bilirubin Negative Urine Urobilinogen Normal Ur Leukocyte Esterase Neg 08/31/16 06:00 POC Glucose (mg/dL) 275 H Total Creatine Kinase CK-MB (Mass) Troponin I, Quant Urine Color Urine Clarity Urine pH Ur Specific [place] Urine Protein Urine Glucose (UA) Urine Ketones Urine Blood Urine Nitrate Urine Bilirubin Urine Urobilinogen Ur Leukocyte Esterase
[2016-09-01 07:19] VITALS: TEMP 97.6
[2016-09-01] MEDS: (Novolin R) Insulin Human Regular 100 units/ml vial SC SCH ×2 (07:48→12:21)
[2016-09-01] MEDS: Pantoprazole 40 mg EC Tab PO SCH (09:22)
[2016-09-01] MEDS: Enoxaparin 30 mg Syringe SC SCH (09:22)
[2016-09-01] MEDS: Naproxen 550 mg Tab PO SCH (09:22)
[2016-09-01 11:49] VITALS: BP 148/71; PULSE 84; O2SAT 98
--- NOTE | 2016-09-01 13:31 | CP.PCM.PN ---
Subjective - Date & Time of Evaluation Date of Evaluation: 09/01/16 Time of Evaluation: 13:30 - Subjective Subjective: 71 YEAR MALE WITH S/P 6 WEEKS CABG SEC. TO 3 V CAD EXPERIENCED CP. ATYPICAL , LEFT SIDE , NON RADIATING INCREASE ON BREATHING PT ADMITTED FOR FURTHER EVALUATION ON FURTHER EXAMINATION THERE WAS TENDERNESS IN LEFT RIB CAGE TNI WERE NEG PT WAS D/C ED ON MOTRIN AND F/U FOR STRESS TEST Objective - Vital Signs/Intake and Output Vital Signs (last 24 hours): Temp Pulse Resp BP Pulse Ox 97.6 F 84 20 148/71 98 09/01/16 07:07 09/01/16 11:35 09/01/16 07:07 09/01/16 11:35 09/01/16 11:35 Intake and Output: 09/01/16 09/01/16 11:59 23:59 Output Total 400 Balance -400 - Medications Medications: Current Medications Aspirin (Aspirin Chewable) 81 mg PO DAILY [facility] Last Admin: 09/01/16 09:22 Dose: 81 mg Enoxaparin Sodium (Lovenox) 30 mg SC Q12 [facility] Last Admin: 09/01/16 09:22 Dose: 30 mg Hydrochlorothiazide (Hydrodiuril) 25 mg PO DAILY [facility] Last Admin: 09/01/16 09:22 Dose: 25 mg Insulin Human Regular (Novolin R) 0 unit SC [facility] PRN Reason: Protocol Last Admin: 09/01/16 12:21 Dose: 3 unit Lisinopril (Zestril) 20 mg PO DAILY [facility] Last Admin: 09/01/16 09:22 Dose: 20 mg Metformin HCl (Glucophage Xr) 1,000 mg PO BID [facility] Last Admin: 09/01/16 09:22 Dose: 1,000 mg Naproxen (Anaprox Ds) 550 mg PO BID [facility] Last Admin: 09/01/16 09:22 Dose: 550 mg Pantoprazole Sodium (Protonix Ec Tab) 40 mg PO DAILY [facility] Last Admin: 09/01/16 09:22 Dose: 40 mg Repaglinide (Prandin) 1 mg PO TID [facility] Last Admin: 09/01/16 13:21 Dose: 1 mg Rosuvastatin Calcium (Crestor) 40 mg PO HS [facility] Last Admin: 08/31/16 21:20 Dose: 40 mg Temazepam (Restoril) 15 mg PO HS [facility] Last Admin: 08/31/16 21:20 Dose: 15 mg - Labs Labs: PT 10.6 SECONDS (9.7-12.2) 08/30/16 20:04 INR 1.0 08/30/16 20:04 APTT 33 SECONDS (21-34) 08/30/16 20:04
--- NOTE | 2016-09-01 14:33 | CP.PCM.PN ---
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 CAD ADMITTED FOR CP ZAHIDA X3 NEGATIVE, STABLE CLEARED FOR D/C PER DR ARORA DENIES CP, SOB, PALPITATION, RESP EASY AND UNLABORED, NAD F/U W/ DR ARORA IN THE OFFICE RX FOR LISINOPRIL-HCTZ, METFORMIN, PRADIN, CRESTOR GIVEN PER DR ARORA AGREE, VERBALIZE UNDERSTANDING Objective - Vital Signs/Intake and Output Vital Signs (last 24 hours): Temp Pulse Resp BP Pulse Ox 97.6 F 84 20 148/71 98 09/01/16 07:07 09/01/16 11:35 09/01/16 07:07 09/01/16 11:35 09/01/16 11:35 Intake and Output: 09/01/16 09/01/16 06:59 18:59 Output Total 400 Balance -400 - Medications Medications: Current Medications Aspirin (Aspirin Chewable) 81 mg PO DAILY [facility] Last Admin: 09/01/16 09:22 Dose: 81 mg Enoxaparin Sodium (Lovenox) 30 mg SC Q12 [facility] Last Admin: 09/01/16 09:22 Dose: 30 mg Hydrochlorothiazide (Hydrodiuril) 25 mg PO DAILY [facility] Last Admin: 09/01/16 09:22 Dose: 25 mg Insulin Human Regular (Novolin R) 0 unit SC [facility] PRN Reason: Protocol Last Admin: 09/01/16 12:21 Dose: 3 unit Lisinopril (Zestril) 20 mg PO DAILY [facility] Last Admin: 09/01/16 09:22 Dose: 20 mg Metformin HCl (Glucophage Xr) 1,000 mg PO BID [facility] Last Admin: 09/01/16 09:22 Dose: 1,000 mg Naproxen (Anaprox Ds) 550 mg PO BID [facility] Last Admin: 09/01/16 09:22 Dose: 550 mg Pantoprazole Sodium (Protonix Ec Tab) 40 mg PO DAILY [facility] Last Admin: 09/01/16 09:22 Dose: 40 mg Repaglinide (Prandin) 1 mg PO TID [facility] Last Admin: 09/01/16 13:21 Dose: 1 mg Rosuvastatin Calcium (Crestor) 40 mg PO HS [facility] Last Admin: 08/31/16 21:20 Dose: 40 mg Temazepam (Restoril) 15 mg PO HS [facility] Last Admin: 08/31/16 21:20 Dose: 15 mg - Labs Labs: PT 10.6 SECONDS (9.7-12.2) 08/30/16 20:04 INR 1.0 08/30/16 20:04 APTT 33 SECONDS (21-34) 08/30/16 20:04
--- NOTE | 2016-09-01 14:36 | PCM.HF ---
Heart Failure Core Measure - Heart Failure Ejection Fraction: 40 % or Greater (lvef 75%) MICHELLE Inhibitor Prescribed: Yes Beta-Monique Prescribed: None Contraindication/Reason for not providing: not rx by md Angiotensin II Receptor Monique Prescribed: No Contraindication/Reason for not providing: on michelle AnticoagulationTherapy for Atrial Fibrillation/Atrialflutter: No Contraindication/Reason for not providing: no afib Aldosterone Antagonist Prescribed: No Contraindication/Reason for not providing: lvef >40% Hydralazine Nitrate Prescribed: No Contraindication/Reason for not providing: lvef >40% Implantable Cardioverter Defibrillator Therapy: No Contraindication/Reason for not providing: lvef >40% Cardiac Resynchronization Therapy Prescribed: No Contraindication/Reason for not providing: levf >40% - Follow up Will be discharged to: Home Follow Up Date (must be within 7 days from discharge): 09/02/16 Follow Up Time: 09:00
--- NOTE | 2016-09-02 02:00 | CARD ---
APPROVED REPORT EKG Measurement Heart [id number] <Conclusion> Normal sinus rhythm Normal ECG
--- NOTE | 2016-09-02 07:56 | CARD ---
APPROVED REPORT EKG Measurement Heart [id number] <Conclusion> Normal sinus rhythm Normal ECG
== END 2016-09-01 15:40 | disposition home or self-care (01) | DRG 313 ==
LOC: C.ER 19:41 → C.9E 21:31 → C.6T 22:16
PROVIDERS: ADMIT Internal Medicine Cardiovascular Disease; ATTEND Internal Medicine Cardiovascular Disease
DX: R07.89 Other chest pain (principal); I25.10 Atherosclerotic heart disease of native coronary artery without angina pectoris; J44.9 Chronic obstructive pulmonary disease, unspecified; I11.0 Hypertensive heart disease with heart failure; I50.9 Heart failure, unspecified; E11.9 Type 2 diabetes mellitus without complications; J45.909 Unspecified asthma, uncomplicated; Z95.1 Presence of aortocoronary bypass graft; Z79.84 Long term (current) use of oral hypoglycemic drugs

== ENCOUNTER 2017-10-07 05:57 | Inpatient (IN) | payer MEDICARE ==
[2017-09-29 11:03] VITALS: BMI 20.7
[2017-10-07] MEDS ORDERED: Thrombin Topical 20,000 Intl Units Spray Kit TOP ONE (06:53)
[2017-10-07] MEDS ORDERED: ceFAZolin 1 gm in NS 1 GM/100 ML BAG IVPB ONE (06:53)
[2017-10-07] MEDS ORDERED: Lidocaine Hydrochloride 0 ML INJ ONE (06:53)
[2017-10-07] MEDS ORDERED: Sodium Chloride 0.9% 20 ML IV ONE (06:54)
[2017-10-07] MEDS ORDERED: Midazolam 2 MG/2 ML VIAL ONE (07:52)
[2017-10-07] MEDS ORDERED: Propofol 10 mg/ml Inj (20 ML) ONE (07:52)
[2017-10-07] MEDS ORDERED: HEPARIN-NS 5,000 UNITS/500 ML 10,000 UNIT/1,000 ML BAG IV ONE (08:07)
[2017-10-07 08:27] LABS: ARTERIAL BLOOD GAS HCO3 20.9 mmol/L (21-28); ARTERIAL BLOOD GAS O2 SAT 98.8 % (95-98); ARTERIAL BLOOD GAS PCO2 33 mm/Hg (35-45); ARTERIAL BLOOD GAS PH 7.37 (7.35-7.45); ARTERIAL BLOOD GAS PO2 360 mm/Hg (80-100); ARTERIAL BLOOD GAS TCO2 20.1 mmol/L (22-28)
[2017-10-07] MEDS ORDERED: Nitroglycerin 50mg in D5W 0 MG/0 ML BOTTLE IV ONE (08:56)
[2017-10-07] MEDS ORDERED: Neostigmine Methylsulfate 3mg/3ml Syringe IV ONE (10:01)
[2017-10-07] MEDS ORDERED: Rocuronium 10 mg/ml (10 ml) ONE (10:12)
[2017-10-07] MEDS ORDERED: Home Med 1 UNIT (Meloxicam [Meloxicam] 15 MG) PO PRN (10:55)
--- NOTE | 2017-10-07 10:55 | PCM.SURG1 ---
Surgeon's Initial Post Op Note - Surgeon's Notes Surgeon: [employer]: Oumou PGY4, Mor PGY3 Type of Anesthesia: General Endo Pre-Operative Diagnosis: R carotid artery stenosis Operative Findings: Stenosis of R carotid artery / plaque Post-Operative Diagnosis: same Operation Performed: Right Carotid Endarterectomy Specimen/Specimens Removed: plaque Estimated Blood Loss: EBL {In ML}: 300 Blood Products Given: N/A Drains Used: [place] Post-Op Condition: Fair Date of Surgery/Procedure: 10/07/17 Time of Surgery/Procedure: 10:54
[2017-10-07] MEDS ORDERED: HYDROmorphone 0.5 mg/0.5 ml ISec IVP PRN (10:58)
[2017-10-07] MEDS ORDERED: Oxycodone/Acetaminophen 5/325 mg Tab PO PRN (10:58)
[2017-10-07] MEDS: (Novolin R) Insulin Human Regular 100 units/ml vial SC SCH ×3 (11:30→23:00)
[2017-10-07] MEDS ORDERED: Sodium Chloride 0.9% 500 ML IV ONE ×2 (11:45→14:53)
[2017-10-07 11:48] LABS: HEMOGLOBIN 9.2 g/dL (12.0-18.0); MEAN CELL VOLUME 75.3 fL (80.0-94.0); MEAN CORPUSCULAR HEMOGLOBIN 25.4 pg (27.0-31.0); MEAN CORPUSCULAR HGB CONC 33.7 g/dL (33.0-37.0); MEAN PLATELET VOLUME 9.1 fL (7.2-11.7); RBC 3.61 Mil/uL (4.40-5.90); WHITE BLOOD COUNT 10.2 K/uL (4.8-10.8)
[2017-10-07 12:04] LABS: BLOOD UREA NITROGEN 27 mg/dL (9-20); CALCIUM 8.5 mg/dl (8.6-10.4); GFR AFRICAN-AMERICAN > 60; GFR NON-AFRICAN AMERICAN > 60
[2017-10-07] MEDS ORDERED: Albumin Human 25% (12.5 gm/50 ml) IV ONE (12:42)
[2017-10-07] MEDS: DOPamine 400mg/250ml D5W 400 MG/250 ML BAG IV PRN ×2 (12:50→15:45)
[2017-10-07] MEDS ORDERED: Nitroglycerin 2% Ointment Foilpak UD TOP PRN ×3 (13:00→14:30)
[2017-10-07 13:42] LABS: CK-MB 2.7 ng/mL (0.0-3.38)
--- NOTE | 2017-10-07 13:47 | RAD ---
HISTORY: HAS CRACKLES POST OP COMPARISON: Chest radiograph dated 09/29/2017 FINDINGS: LUNGS: Pulmonary vascular congestion/edema. PLEURA: No significant pleural effusion identified, no pneumothorax apparent. CARDIOVASCULAR: Prior sternotomy with sternal wires and surgical clips redemonstrated. Atherosclerotic aortic calcifications. Cardiomediastinal silhouette unchanged. OSSEOUS STRUCTURES: Unchanged. VISUALIZED UPPER ABDOMEN: Normal. OTHER FINDINGS: Radiopaque tubes seen in the right neck soft tissues, likely surgical drain. IMPRESSION: Pulmonary vascular congestion/edema. No appreciable pneumothorax.
[2017-10-07 14:27] LABS: TROPONIN I 0.55 ng/mL (0.00-0.120)
[2017-10-07] MEDS ORDERED: Phenylephrine 30 MG in Dextrose 5% In Water 250 ML IV PRN (14:52)
[2017-10-07 15:32] LABS: BASO % 0.2 % (0.0-2.0); EOS % 0.1 % (0.0-4.0); HEMOGLOBIN 8.4 g/dL (12.0-18.0); LYMPH # 0.6 K/uL (1.0-4.3); MEAN CELL VOLUME 76.1 fL (80.0-94.0); MEAN CORPUSCULAR HEMOGLOBIN 25.9 pg (27.0-31.0); MEAN PLATELET VOLUME 9.7 fL (7.2-11.7); MONO # 0.5 K/uL (0.0-0.8); NEUT # 7.9 K/uL (1.8-7.0); NEUT % 87.7 % (50.0-75.0); PLATELET COUNT 128 K/uL (130-400); RBC 3.24 Mil/uL (4.40-5.90); RED CELL DISTRIBUTION WIDTH 14.6 % (11.5-14.5)
[2017-10-07 15:43] LABS: ALB/GLOB RATIO 1.5 (1.0-2.1); ALBUMIN 3.3 g/dL (3.5-5.0); ALT/SGPT 32 U/L (21-72); AST/SGOT 30 U/L (17-59); BLOOD UREA NITROGEN 27 mg/dL (9-20); CALCIUM 8.2 mg/dl (8.6-10.4); GFR AFRICAN-AMERICAN > 60; GFR NON-AFRICAN AMERICAN > 60
[2017-10-07] MEDS: Lactated Ringer's 1,000 ML IV SCH (16:00)
[2017-10-07 16:03] LABS: B-TYPE NATRIURETIC PEPTIDE 523 pg/mL (0-900)
--- NOTE | 2017-10-07 16:36 | CP.PCM.CON ---
<AnujaAlexa Jameson - Last Filed: 10/07/17 16:41> History of Present Illness - History of Present Illness History of Present Illness: Patient is a 72 year old male with PMHx of CABG (07/20), prostate CA (2013), DMII , HTN, HLD, iron deficiency anemia who presents today for R carotid endarterectomy. Post surgery patient was complaining of chest pain. Troponin was checked and was elevated. EKG was done which showed T wave inversion and QTC of 472. Cardiology was consulted for these findings. Patient seen and examined at bedside and said that he was feeling short of breath after the procedure which has improved. Patient also says he is having pain around his surgical site. Patient also admits to headache and lightheadedness. Patient denies any palpitations, abdominal pain, nausea, or vomiting. 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 Allergies: NKDA PMHx: CABG (07/20), prostate CA (2013), DMII, HTN, HLD, iron deficiency anemia Psurg: CABG (07/20), prostatectomy (2013) Famhx: HTN, Mom: Alzheimer's Socialhx: denies tobacco, drank alcohol socially 20 years ago, denies drug use lives with and son, able to perform ADLs without assistance, able to walk many blocks without chest pain or SOB Home meds: Vitamin D 2000u daily, Temazepam 15mg at bedtime as needed, Rosuvastatin 40mg daily, Ezetimibe 10mg daily, Glipizide XL 10mg daily, Glipizide 10mg twice a day, Pioglitazone 30mg tab daily, Meloxicam 15mg once a day prn, Lisinopril-HCTZ 20-12.5mg once a day, Metformin 1000mg BID, Vitamin B12 1000mcg daily Review of Systems - Cardiovascular Cardiovascular: Chest Pain, Dyspnea. absent: Pedal Edema - Respiratory Respiratory: Cough, Chest Congestion, Pain with Coughing - Gastrointestinal Gastrointestinal: absent: Abdominal Pain, Nausea, Vomiting - Genitourinary Genitourinary: absent: Dysuria - Integumentary Integumentary: absent: Rash Past Patient History - Infectious Disease Hx of Infectious Diseases: None - Past Medical History & Family History Past Medical History?: Yes - Past Social History Smoking Status: Former Smoker - CARDIAC Hx Cardiac Disorders: Yes (CAD) Hx Hypercholesterolemia: Yes Hx Hypertension: Yes Other/Comment: carotid stenosis - PULMONARY Hx Respiratory Disorders: Yes Hx Asthma: Yes Hx Chronic Obstructive Pulmonary Disease (COPD): Yes - NEUROLOGICAL Hx Neurological Disorder: No Hx Dizziness: Yes - HEENT Hx HEENT Problems: Yes Hx Cataracts: Yes (RIGHT) - RENAL Hx Chronic Kidney Disease: No - ENDOCRINE/METABOLIC Hx Endocrine Disorders: Yes Hx Diabetes Mellitus Type 2: Yes - HEMATOLOGICAL/ONCOLOGICAL Hx Blood Disorders: No - INTEGUMENTARY Hx Dermatological Problems: Yes (PIGMENT LOSS) - MUSCULOSKELETAL/RHEUMATOLOGICAL Hx Musculoskeletal Disorders: Yes Hx Falls: No Hx Osteoarthritis: Yes (KNEES) - GASTROINTESTINAL Hx Gastrointestinal Disorders: No - GENITOURINARY/GYNECOLOGICAL Hx Genitourinary Disorders: Yes Hx Prostate Problems: Yes - PSYCHIATRIC Hx Psychophysiologic Disorder: No Hx Substance Use: No - SURGICAL HISTORY Hx Surgeries: Yes Hx Cataract Extraction: Yes (RIGHT) Hx Cardiac Catheterization: Yes Hx Open Heart Surgery: Yes (1 year ago) Other/Comment: prostate sx - ANESTHESIA Hx Anesthesia: Yes Hx Anesthesia Reactions: No Hx Malignant Hyperthermia: No Has any member of the family had a problem w/ anesthesia?: No Meds Allergies/Adverse Reactions: Allergies Allergy/AdvReac Type Severity Reaction Status Date / Time No Known Allergies Allergy Verified 08/30/16 19:58 - Medications Medications: Current Medications Aspirin (Aspirin Chewable) 81 mg PO DAILY [facility] Clopidogrel Bisulfate (Plavix) 75 mg PO DAILY [facility] Ezetimibe (Zetia) 10 mg PO DAILY [facility] Heparin Sodium (Porcine) (Heparin) 5,000 units SC Q12 [facility] Hydromorphone HCl (Dilaudid) 0.5 mg IVP Q4H PRN PRN Reason: Pain, severe (8-10) Dopamine HCl/Dextrose (Dopamine 400mg/250ml D5w) 400 mg in 250 mls @ 4.252 mls/ hr IV .Q24H PRN; Protocol; 2 MCG/KG/MIN PRN Reason: TITRATE PER MD ORDER Last Admin: 10/07/17 12:50 Dose: 0 mls Lactated Ringer's (Lactated Ringer's) 1,000 mls @ 50 mls/hr IV .Q20H [facility] Phenylephrine HCl 30 mg/ (Dextrose) 253 mls @ 15.18 mls/hr IV .[id number] PRN; Protocol; 30 MCG/MIN PRN Reason: TITRATE PER MD ORDER Insulin Human Regular (Novolin R) 0 unit SC ACHS [facility] PRN Reason: Protocol Ondansetron HCl (Zofran Inj) 4 mg IVP Q6H PRN PRN Reason: Nausea/Vomiting Oxycodone/Acetaminophen (Percocet 5/325 Mg Tab) 1 tab PO Q4H PRN PRN Reason: Pain, moderate (4-7) Stop: 10/10/17 10:59 Rosuvastatin Calcium (Crestor) 40 mg PO HS [facility] Senna/Docusate Sodium (Senokot S 50 Mg-8.6 Mg) 1 tab PO BID [facility] Temazepam (Restoril) 15 mg PO HS [facility] Physical Exam - Constitutional Appears: Non-toxic, No Acute Distress - Head Exam Head Exam: ATRAUMATIC, NORMAL INSPECTION, NORMOCEPHALIC - Eye Exam Eye Exam: EOMI, Normal appearance - ENT Exam ENT Exam: Mucous Membranes Moist - Respiratory Exam Respiratory Exam: Decreased Breath Sounds, Rales - Cardiovascular Exam Cardiovascular Exam: Tachycardia, REGULAR RHYTHM, +S1, +S2 - GI/Abdominal Exam GI & Abdominal Exam: Normal Bowel Sounds, Soft. absent: Distended, Firm, Tenderness - Extremities Exam Extremities exam: Positive for: normal inspection. Negative for: pedal edema - Neurological Exam Neurological exam: Alert, Oriented x3 - Psychiatric Exam Psychiatric exam: Normal Affect, Normal Mood - Skin Skin Exam: Warm Additional comments: right side neck dressing c/d/i s/p carotid endarterectomy Results - Vital Signs Recent Vital Signs: Last Vital Signs Temp 97 F L 10/07/17 10:51 Pulse 84 10/07/17 11:30 Resp 18 10/07/17 11:30 BP 94/55 L 10/07/17 11:30 Pulse Ox 100 10/07/17 11:30 - Labs Result Diagrams: 10/07/17 15:26 10/07/17 15:19 Labs: Laboratory Results - last 24 hr 10/07/17 10/07/17 10/07/17 06:34 08:23 08:27 WBC RBC Hgb Hct MCV MCH MCHC RDW Plt Count MPV Neut % (Auto) Lymph % (Auto) [place] % (Auto) Eos % (Auto) Baso % (Auto) Neut # (Auto) Lymph # (Auto) [place] # (Auto) Eos # (Auto) Baso # (Auto) Puncture Site Line pCO2 33 L pO2 360 H HCO3 20.9 L ABG pH 7.37 ABG Total CO2 20.1 L ABG O2 Saturation 98.8 H ABG Base Excess -5.3 L Adolfo Test Na ABG Potassium 5.4 H Sodium 136.0 Chloride 111.0 H Glucose 136 H Lactate 1.4 Potassium 5.6 H Carbon Dioxide Anion Gap BUN Creatinine Est GFR ( Amer) Est GFR (Non-Af Amer) POC Glucose (mg/dL) 151 H Random Glucose Lactic Acid Calcium Phosphorus Magnesium Total Bilirubin AST ALT Alkaline Phosphatase Total Creatine Kinase CK-MB (Mass) Troponin I NT-Pro-B Natriuret Pep Total Protein Albumin Globulin Albumin/Globulin Ratio Arterial Blood Potassium 5.4 H Blood Type Antibody Screen 10/07/17 10/07/17 10/07/17 11:29 11:45 11:45 WBC 10.2 D RBC 3.61 L Hgb 9.2 L Hct 27.1 L MCV 75.3 L MCH 25.4 L MCHC 33.7 RDW 15.0 H Plt Count 137 MPV 9.1 Neut % (Auto) Lymph % (Auto) [place] % (Auto) Eos % (Auto) Baso % (Auto) Neut # (Auto) Lymph # (Auto) [place] # (Auto) Eos # (Auto) Baso # (Auto) Puncture Site pCO2 pO2 HCO3 ABG pH ABG Total CO2 ABG O2 Saturation ABG Base Excess Adolfo Test ABG Potassium Sodium 135 Chloride 106 Glucose Lactate Potassium 4.9 Carbon Dioxide 19 L Anion Gap 15 BUN 27 H Creatinine 1.1 Est GFR ( Amer) > 60 Est GFR (Non-Af Amer) > 60 POC Glucose (mg/dL) 220 H Random Glucose 227 H Lactic Acid Calcium 8.5 L Phosphorus Magnesium Total Bilirubin AST ALT Alkaline Phosphatase Total Creatine Kinase CK-MB (Mass) Troponin I NT-Pro-B Natriuret Pep Total Protein Albumin Globulin Albumin/Globulin Ratio Arterial Blood Potassium Blood Type Antibody Screen 10/07/17 10/07/17 10/07/17 12:37 12:55 15:19 WBC RBC Hgb Hct MCV MCH MCHC RDW Plt Count MPV Neut % (Auto) Lymph % (Auto) [place] % (Auto) Eos % (Auto) Baso % (Auto) Neut # (Auto) Lymph # (Auto) [place] # (Auto) Eos # (Auto) Baso # (Auto) Puncture Site pCO2 pO2 HCO3 ABG pH ABG Total CO2 ABG O2 Saturation ABG Base Excess Adolfo Test ABG Potassium Sodium 137 Chloride 108 H Glucose Lactate Potassium 4.8 Carbon Dioxide 17 L Anion Gap 17 BUN 27 H Creatinine 1.0 Est GFR ( Amer) > 60 Est GFR (Non-Af Amer) > 60 POC Glucose (mg/dL) Random Glucose 249 H Lactic Acid Calcium 8.2 L Phosphorus 3.5 Magnesium 1.3 L Total Bilirubin 0.7 AST 30 ALT 32 Alkaline Phosphatase 44 Total Creatine Kinase 141 CK-MB (Mass) 2.70 Troponin I 0.5500 H* 0.7820 H* NT-Pro-B Natriuret Pep 523 Total Protein 5.4 L Albumin 3.3 L Globulin 2.2 Albumin/Globulin Ratio 1.5 Arterial Blood Potassium Blood Type B POSITIVE Antibody Screen Negative 10/07/17 10/07/17 15:19 15:26 WBC 9.0 RBC 3.24 L Hgb 8.4 L Hct 24.6 L MCV 76.1 L MCH 25.9 L MCHC 34.0 RDW 14.6 H Plt Count 128 L MPV 9.7 Neut % (Auto) 87.7 H Lymph % (Auto) 7.0 L [place] % (Auto) 5.0 Eos % (Auto) 0.1 Baso % (Auto) 0.2 Neut # (Auto) 7.9 H Lymph # (Auto) 0.6 L [place] # (Auto) 0.5 Eos # (Auto) 0.0 Baso # (Auto) 0.0 Puncture Site pCO2 pO2 HCO3 ABG pH ABG Total CO2 ABG O2 Saturation ABG Base Excess Adolfo Test ABG Potassium Sodium Chloride Glucose Lactate Potassium Carbon Dioxide Anion Gap BUN Creatinine Est GFR ( Amer) Est GFR (Non-Af Amer) POC Glucose (mg/dL) Random Glucose Lactic Acid 2.9 H Calcium Phosphorus Magnesium Total Bilirubin AST ALT Alkaline Phosphatase Total Creatine Kinase CK-MB (Mass) Troponin I NT-Pro-B Natriuret Pep Total Protein Albumin Globulin Albumin/Globulin Ratio Arterial Blood Potassium Blood Type Antibody Screen Assessment & Plan - Assessment and Plan (Free Text) Assessment: NSTEMI s/p carotid endarterectomy troponin I : .55, .7820 f/u repeat troponin EKG: T wave inversions, QTC 472 f/u repeat EKG ECHO ordered Meds: * ASA 81mg po daily * Plavix 75mg po daily * Heparin 5,000 u sc q12h Patient to go for cardiac cath with Dr. Johnston in am NPO after midnight except medications Hypotension * Dopamine drip * Normal Saline HLD * Zetia 10mg po daily * Crestor 40mg po daily Discussed with Dr. Johnston <Adolfo Johnston - Last Filed: 10/08/17 08:08> Meds - Medications Medications: Current Medications Aspirin (Aspirin Chewable) 81 mg PO DAILY [facility] Clopidogrel Bisulfate (Plavix) 75 mg PO DAILY [facility] Ezetimibe (Zetia) 10 mg PO DAILY [facility] Heparin Sodium (Porcine) (Heparin) 5,000 units SC Q12 [facility] Hydromorphone HCl (Dilaudid) 0.5 mg IVP Q4H PRN PRN Reason: Pain, severe (8-10) Last Admin: 10/08/17 03:55 Dose: 0.5 mg Dopamine HCl/Dextrose (Dopamine 400mg/250ml D5w) 400 mg in 250 mls @ 4.252 mls/ hr IV .Q24H PRN; Protocol; 2 MCG/KG/MIN PRN Reason: TITRATE PER MD ORDER Last Titration: 10/07/17 17:00 Dose: 0 mcg/kg/min, 0 mls/hr Lactated Ringer's (Lactated Ringer's) 1,000 mls @ 50 mls/hr IV .Q20H [facility]O Last Admin: 10/07/17 16:00 Dose: 50 mls/hr Phenylephrine HCl 30 mg/ (Dextrose) 253 mls @ 15.18 mls/hr IV .[id number] PRN; Protocol; 30 MCG/MIN PRN Reason: TITRATE PER MD ORDER Last Titration: 10/07/17 20:00 Dose: 0 mcg/min, 0 mls/hr Insulin Human Regular (Novolin R) 0 unit SC ACHS [facility]O PRN Reason: Protocol Last Admin: 10/08/17 07:30 Dose: Not Given Ondansetron HCl (Zofran Inj) 4 mg IVP Q6H PRN PRN Reason: Nausea/Vomiting Last Admin: 10/08/17 03:00 Dose: 4 mg Oxycodone/Acetaminophen (Percocet 5/325 Mg Tab) 1 tab PO Q4H PRN PRN Reason: Pain, moderate (4-7) Stop: 10/10/17 10:59 Rosuvastatin Calcium (Crestor) 40 mg PO [facility] Last Admin: 10/07/17 23:00 Dose: 40 mg Senna/Docusate Sodium (Senokot S 50 Mg-8.6 Mg) 1 tab PO BID [facility] Last Admin: 10/07/17 19:36 Dose: Not Given Temazepam (Restoril) 15 mg PO [facility] Last Admin: 10/07/17 23:41 Dose: 15 mg Results - Vital Signs Recent Vital Signs: Last Vital Signs Temp 97.6 F 10/08/17 00:00 Pulse 88 10/08/17 07:00 Resp 13 10/08/17 07:00 BP 121/48 L 10/08/17 04:00 Pulse Ox 100 10/08/17 07:00 - Labs Result Diagrams: 10/08/17 05:28 10/08/17 05:28 Labs: Laboratory Results - last 24 hr 10/07/17 10/07/17 10/07/17 08:23 08:27 11:29 WBC RBC Hgb Hct MCV MCH MCHC RDW Plt Count MPV Neut % (Auto) Lymph % (Auto) [place] % (Auto) Eos % (Auto) Baso % (Auto) Neut # (Auto) Lymph # (Auto) [place] # (Auto) Eos # (Auto) Baso # (Auto) Neutrophils % (Manual) Band Neutrophils % Lymphocytes % (Manual) Monocytes % (Manual) Platelet Estimate Polychromasia Hypochromasia (manual) Anisocytosis (manual) Ovalocytes [place] Cells Schistocytes PT INR APTT Puncture Site Line pCO2 33 L pO2 360 H HCO3 20.9 L ABG pH 7.37 ABG Total CO2 20.1 L ABG O2 Saturation 98.8 H ABG Base Excess -5.3 L Adolfo Test Na ABG Potassium 5.4 H Sodium 136.0 Chloride 111.0 H Glucose 136 H Lactate 1.4 Potassium 5.6 H Carbon Dioxide Anion Gap BUN Creatinine Est GFR ( Amer) Est GFR (Non-Af Amer) POC Glucose (mg/dL) 220 H Random Glucose Lactic Acid Calcium Phosphorus Magnesium Total Bilirubin AST ALT Alkaline Phosphatase Total Creatine Kinase CK-MB (Mass) Troponin I NT-Pro-B Natriuret Pep Total Protein Albumin Globulin Albumin/Globulin Ratio Arterial Blood Potassium 5.4 H Blood Type Antibody Screen 10/07/17 10/07/17 10/07/17 11:45 11:45 12:37 WBC 10.2 D RBC 3.61 L Hgb 9.2 L Hct 27.1 L MCV 75.3 L MCH 25.4 L MCHC 33.7 RDW 15.0 H Plt Count 137 MPV 9.1 Neut % (Auto) Lymph % (Auto) [place] % (Auto) Eos % (Auto) Baso % (Auto) Neut # (Auto) Lymph # (Auto) [place] # (Auto) Eos # (Auto) Baso # (Auto) Neutrophils % (Manual) Band Neutrophils % Lymphocytes % (Manual) Monocytes % (Manual) Platelet Estimate Polychromasia Hypochromasia (manual) Anisocytosis (manual) Ovalocytes [place] Cells Schistocytes PT INR APTT Puncture Site pCO2 pO2 HCO3 ABG pH ABG Total CO2 ABG O2 Saturation ABG Base Excess Adolfo Test ABG Potassium Sodium 135 Chloride 106 Glucose Lactate Potassium 4.9 Carbon Dioxide 19 L Anion Gap 15 BUN 27 H Creatinine 1.1 Est GFR ( Amer) > 60 Est GFR (Non-Af Amer) > 60 POC Glucose (mg/dL) Random Glucose 227 H Lactic Acid Calcium 8.5 L Phosphorus Magnesium Total Bilirubin AST ALT Alkaline Phosphatase Total Creatine Kinase 141 CK-MB (Mass) 2.70 Troponin I 0.5500 H* NT-Pro-B Natriuret Pep Total Protein Albumin Globulin Albumin/Globulin Ratio Arterial Blood Potassium Blood Type Antibody Screen 10/07/17 10/07/17 10/07/17 12:55 15:19 15:19 WBC RBC Hgb Hct MCV MCH MCHC RDW Plt Count MPV Neut % (Auto) Lymph % (Auto) [place] % (Auto) Eos % (Auto) Baso % (Auto) Neut # (Auto) Lymph # (Auto) [place] # (Auto) Eos # (Auto) Baso # (Auto) Neutrophils % (Manual) Band Neutrophils % Lymphocytes % (Manual) Monocytes % (Manual) Platelet Estimate Polychromasia Hypochromasia (manual) Anisocytosis (manual) Ovalocytes [place] Cells Schistocytes PT INR APTT Puncture Site pCO2 pO2 HCO3 ABG pH ABG Total CO2 ABG O2 Saturation ABG Base Excess Adolfo Test ABG Potassium Sodium 137 Chloride 108 H Glucose Lactate Potassium 4.8 Carbon Dioxide 17 L Anion Gap 17 BUN 27 H Creatinine 1.0 Est GFR ( Amer) > 60 Est GFR (Non-Af Amer) > 60 POC Glucose (mg/dL) Random Glucose 249 H Lactic Acid 2.9 H Calcium 8.2 L Phosphorus 3.5 Magnesium 1.3 L Total Bilirubin 0.7 AST 30 ALT 32 Alkaline Phosphatase 44 Total Creatine Kinase CK-MB (Mass) Troponin I 0.7820 H* NT-Pro-B Natriuret Pep 523 Total Protein 5.4 L Albumin 3.3 L Globulin 2.2 Albumin/Globulin Ratio 1.5 Arterial Blood Potassium Blood Type B POSITIVE Antibody Screen Negative 10/07/17 10/07/17 10/07/17 15:26 16:19 18:15 WBC 9.0 RBC 3.24 L Hgb 8.4 L Hct 24.6 L MCV 76.1 L MCH 25.9 L MCHC 34.0 RDW 14.6 H Plt Count 128 L MPV 9.7 Neut % (Auto) 87.7 H Lymph % (Auto) 7.0 L [place] % (Auto) 5.0 Eos % (Auto) 0.1 Baso % (Auto) 0.2 Neut # (Auto) 7.9 H Lymph # (Auto) 0.6 L [place] # (Auto) 0.5 Eos # (Auto) 0.0 Baso # (Auto) 0.0 Neutrophils % (Manual) 90 H Band Neutrophils % 3 H Lymphocytes % (Manual) 4 L Monocytes % (Manual) 3 Platelet Estimate Slightly decreased L Polychromasia Slight Hypochromasia (manual) Slight Anisocytosis (manual) Slight Ovalocytes Slight [place] Cells Slight Schistocytes Slight PT INR APTT Puncture Site pCO2 pO2 HCO3 ABG pH ABG Total CO2 ABG O2 Saturation ABG Base Excess Adolfo Test ABG Potassium Sodium Chloride Glucose Lactate Potassium Carbon Dioxide Anion Gap BUN Creatinine Est GFR ( Amer) Est GFR (Non-Af Amer) POC Glucose (mg/dL) 277 H Random Glucose Lactic Acid 4.3 H* Calcium Phosphorus Magnesium Total Bilirubin AST ALT Alkaline Phosphatase Total Creatine Kinase CK-MB (Mass) Troponin I NT-Pro-B Natriuret Pep Total Protein Albumin Globulin Albumin/Globulin Ratio Arterial Blood Potassium Blood Type Antibody Screen 10/07/17 10/07/17 10/07/17 21:31 21:57 21:57 WBC 7.3 RBC 3.66 L Hgb 9.4 L Hct 28.5 L MCV 77.8 L MCH 25.7 L MCHC 33.1 RDW 16.3 H Plt Count 114 L MPV 9.1 Neut % (Auto) Lymph % (Auto) [place] % (Auto) Eos % (Auto) Baso % (Auto) Neut # (Auto) Lymph # (Auto) [place] # (Auto) Eos # (Auto) Baso # (Auto) Neutrophils % (Manual) Band Neutrophils % Lymphocytes % (Manual) Monocytes % (Manual) Platelet Estimate Polychromasia Hypochromasia (manual) Anisocytosis (manual) Ovalocytes [place] Cells Schistocytes PT INR APTT Puncture Site pCO2 pO2 HCO3 ABG pH ABG Total CO2 ABG O2 Saturation ABG Base Excess Adolfo Test ABG Potassium Sodium Chloride Glucose Lactate Potassium Carbon Dioxide Anion Gap BUN Creatinine Est GFR ( Amer) Est GFR (Non-Af Amer) POC Glucose (mg/dL) 285 H Random Glucose Lactic Acid Calcium Phosphorus Magnesium Total Bilirubin AST ALT Alkaline Phosphatase Total Creatine Kinase CK-MB (Mass) Troponin I 2.0400 H* NT-Pro-B Natriuret Pep Total Protein Albumin Globulin Albumin/Globulin Ratio Arterial Blood Potassium Blood Type Antibody Screen 10/07/17 10/07/17 10/08/17 21:57 21:57 05:28 WBC 7.1 RBC 3.35 L Hgb 8.8 L Hct 25.9 L MCV 77.3 L MCH 26.2 L MCHC 33.9 RDW 16.0 H Plt Count 98 L MPV 9.4 Neut % (Auto) 79.0 H Lymph % (Auto) 11.9 L [place] % (Auto) 8.3 Eos % (Auto) 0.4 Baso % (Auto) 0.4 Neut # (Auto) 5.6 Lymph # (Auto) 0.8 L [place] # (Auto) 0.6 Eos # (Auto) 0.0 Baso # (Auto) 0.0 Neutrophils % (Manual) Band Neutrophils % Lymphocytes % (Manual) Monocytes % (Manual) Platelet Estimate Polychromasia Hypochromasia (manual) Anisocytosis (manual) Ovalocytes [place] Cells Schistocytes PT 12.2 INR 1.1 APTT 27 Puncture Site pCO2 pO2 HCO3 ABG pH ABG Total CO2 ABG O2 Saturation ABG Base Excess Adolfo Test ABG Potassium Sodium Chloride Glucose Lactate Potassium Carbon Dioxide Anion Gap BUN Creatinine Est GFR ( Amer) Est GFR (Non-Af Amer) POC Glucose (mg/dL) Random Glucose Lactic Acid 2.7 H Calcium Phosphorus Magnesium Total Bilirubin AST ALT Alkaline Phosphatase Total Creatine Kinase CK-MB (Mass) Troponin I NT-Pro-B Natriuret Pep Total Protein Albumin Globulin Albumin/Globulin Ratio Arterial Blood Potassium Blood Type Antibody Screen 10/08/17 10/08/17 05:28 05:28 WBC RBC Hgb Hct MCV MCH MCHC RDW Plt Count MPV Neut % (Auto) Lymph % (Auto) [place] % (Auto) Eos % (Auto) Baso % (Auto) Neut # (Auto) Lymph # (Auto) [place] # (Auto) Eos # (Auto) Baso # (Auto) Neutrophils % (Manual) Band Neutrophils % Lymphocytes % (Manual) Monocytes % (Manual) Platelet Estimate Polychromasia Hypochromasia (manual) Anisocytosis (manual) Ovalocytes [place] Cells Schistocytes PT INR APTT Puncture Site pCO2 pO2 HCO3 ABG pH ABG Total CO2 ABG O2 Saturation ABG Base Excess Adolfo Test ABG Potassium Sodium 137 Chloride 105 Glucose Lactate Potassium 5.0 Carbon Dioxide 24 Anion Gap 13 BUN 28 H Creatinine 1.1 Est GFR ( Amer) > 60 Est GFR (Non-Af Amer) > 60 POC Glucose (mg/dL) Random Glucose 215 H Lactic Acid 1.3 Calcium 8.2 L Phosphorus 3.3 Magnesium 1.4 L Total Bilirubin 1.0 AST 42 ALT 29 Alkaline Phosphatase 37 L Total Creatine Kinase CK-MB (Mass) Troponin I 4.5100 H* NT-Pro-B Natriuret Pep Total Protein 5.1 L Albumin 2.9 L Globulin 2.2 Albumin/Globulin Ratio 1.3 Arterial Blood Potassium Blood Type Antibody Screen Assessment & Plan - Assessment and Plan (Free Text) Assessment: Patient seen and evaluated by me Non [facility] For cath in am
[2017-10-07 16:37] LABS: BANDS 3 % (0-2); LYMPHOCYTE 4 % (20-40); MONOCYTE 3 % (0-10); NEUTROPHIL 90 % (50-75); PLATELET ESTIMATE SLIGHTLY DECREASED (NORMAL); TOTAL CELLS COUNTED 100
[2017-10-07 16:38] LABS: HYPOCHROMIC SLIGHT; OVALOCYTES SLIGHT; POLYCHROMIC SLIGHT
[2017-10-07 16:44] LABS: BURR CELLS SLIGHT
[2017-10-07 16:45] LABS: ANISOCYTOSIS SLIGHT; SCHISTOCYTES SLIGHT
[2017-10-07] MEDS ORDERED: GlipiZIDE 10 mg SR Tab PO SCH (18:00)
[2017-10-07] MEDS: Docusate-Senna 50 mg-8.6 mg Tab PO SCH (19:36)
[2017-10-07 22:00] LABS: HEMOGLOBIN 9.4 g/dL (12.0-18.0); MEAN CELL VOLUME 77.8 fL (80.0-94.0); MEAN CORPUSCULAR HEMOGLOBIN 25.7 pg (27.0-31.0); MEAN CORPUSCULAR HGB CONC 33.1 g/dL (33.0-37.0); MEAN PLATELET VOLUME 9.1 fL (7.2-11.7); RBC 3.66 Mil/uL (4.40-5.90); RED CELL DISTRIBUTION WIDTH 16.3 % (11.5-14.5); WHITE BLOOD COUNT 7.3 K/uL (4.8-10.8)
[2017-10-07 22:17] LABS: INR 1.1; PROTHROMBIN TIME 12.2 SECONDS (9.7-12.2)
--- NOTE | 2017-10-08 00:28 | CP.PCM.CON ---
History of Present Illness - History of Present Illness History of Present Illness: Patient seen and evaluated S/P LITO Non St elevation [place] Denies chest pain' For cath in am Past Patient History - Infectious Disease Hx of Infectious Diseases: None - Past Medical History & Family History Past Medical History?: Yes - Past Social History Smoking Status: Former Smoker - CARDIAC Hx Cardiac Disorders: Yes (CAD) Hx Hypercholesterolemia: Yes Hx Hypertension: Yes Other/Comment: carotid stenosis - PULMONARY Hx Respiratory Disorders: Yes Hx Asthma: Yes Hx Chronic Obstructive Pulmonary Disease (COPD): Yes - NEUROLOGICAL Hx Neurological Disorder: No Hx Dizziness: Yes - HEENT Hx HEENT Problems: Yes Hx Cataracts: Yes (RIGHT) - RENAL Hx Chronic Kidney Disease: No - ENDOCRINE/METABOLIC Hx Endocrine Disorders: Yes Hx Diabetes Mellitus Type 2: Yes - HEMATOLOGICAL/ONCOLOGICAL Hx Blood Disorders: No - INTEGUMENTARY Hx Dermatological Problems: Yes (PIGMENT LOSS) - MUSCULOSKELETAL/RHEUMATOLOGICAL Hx Musculoskeletal Disorders: Yes Hx Falls: No Hx Osteoarthritis: Yes (KNEES) - GASTROINTESTINAL Hx Gastrointestinal Disorders: No - GENITOURINARY/GYNECOLOGICAL Hx Genitourinary Disorders: Yes Hx Prostate Problems: Yes - PSYCHIATRIC Hx Psychophysiologic Disorder: No Hx Substance Use: No - SURGICAL HISTORY Hx Surgeries: Yes Hx Cataract Extraction: Yes (RIGHT) Hx Cardiac Catheterization: Yes Hx Open Heart Surgery: Yes (1 year ago) Other/Comment: prostate sx - ANESTHESIA Hx Anesthesia: Yes Hx Anesthesia Reactions: No Hx Malignant Hyperthermia: No Has any member of the family had a problem w/ anesthesia?: No Meds Allergies/Adverse Reactions: Allergies Allergy/AdvReac Type Severity Reaction Status Date / Time No Known Allergies Allergy Verified 08/30/16 19:58 - Medications Medications: Current Medications Aspirin (Aspirin Chewable) 81 mg PO DAILY [facility] Clopidogrel Bisulfate (Plavix) 75 mg PO DAILY [facility] Ezetimibe (Zetia) 10 mg PO DAILY [facility] Heparin Sodium (Porcine) (Heparin) 5,000 units SC Q12 [facility] Hydromorphone HCl (Dilaudid) 0.5 mg IVP Q4H PRN PRN Reason: Pain, severe (8-10) Dopamine HCl/Dextrose (Dopamine 400mg/250ml D5w) 400 mg in 250 mls @ 4.252 mls/ hr IV .Q24H PRN; Protocol; 2 MCG/KG/MIN PRN Reason: TITRATE PER MD ORDER Last Titration: 10/07/17 17:00 Dose: 0 mcg/kg/min, 0 mls/hr Lactated Ringer's (Lactated Ringer's) 1,000 mls @ 50 mls/hr IV .Q20H [facility] Last Admin: 10/07/17 16:00 Dose: 50 mls/hr Phenylephrine HCl 30 mg/ (Dextrose) 253 mls @ 15.18 mls/hr IV .[id number] PRN; Protocol; 30 MCG/MIN PRN Reason: TITRATE PER MD ORDER Last Titration: 10/07/17 18:00 Dose: 10 mcg/min, 5.05 mls/hr Insulin Human Regular (Novolin R) 0 unit SC ACHS [facility] PRN Reason: Protocol Last Admin: 10/07/17 23:00 Dose: Not Given Ondansetron HCl (Zofran Inj) 4 mg IVP Q6H PRN PRN Reason: Nausea/Vomiting Oxycodone/Acetaminophen (Percocet 5/325 Mg Tab) 1 tab PO Q4H PRN PRN Reason: Pain, moderate (4-7) Stop: 10/10/17 10:59 Rosuvastatin Calcium (Crestor) 40 mg PO [facility] Last Admin: 10/07/17 23:00 Dose: 40 mg Senna/Docusate Sodium (Senokot S 50 Mg-8.6 Mg) 1 tab PO BID [facility] Last Admin: 10/07/17 19:36 Dose: Not Given Temazepam (Restoril) 15 mg PO [facility] Last Admin: 10/07/17 23:41 Dose: 15 mg Results - Vital Signs Recent Vital Signs: Last Vital Signs Temp 97.8 F 10/07/17 20:00 Pulse 93 H 10/07/17 22:00 Resp 16 10/07/17 22:00 BP 112/47 L 10/07/17 23:00 Pulse Ox 100 10/07/17 22:00 - Labs Result Diagrams: 10/07/17 21:57 10/07/17 15:19 Labs: Laboratory Results - last 24 hr 10/07/17 10/07/17 10/07/17 06:34 08:23 08:27 WBC RBC Hgb Hct MCV MCH MCHC RDW Plt Count MPV Neut % (Auto) Lymph % (Auto) Crane % (Auto) Eos % (Auto) Baso % (Auto) Neut # (Auto) Lymph # (Auto) Crane # (Auto) Eos # (Auto) Baso # (Auto) Neutrophils % (Manual) Band Neutrophils % Lymphocytes % (Manual) Monocytes % (Manual) Platelet Estimate Polychromasia Hypochromasia (manual) Anisocytosis (manual) Ovalocytes Humaira Cells Schistocytes PT INR APTT Puncture Site Line pCO2 33 L pO2 360 H HCO3 20.9 L ABG pH 7.37 ABG Total CO2 20.1 L ABG O2 Saturation 98.8 H ABG Base Excess -5.3 L Adolfo Test Na ABG Potassium 5.4 H Sodium 136.0 Chloride 111.0 H Glucose 136 H Lactate 1.4 Potassium 5.6 H Carbon Dioxide Anion Gap BUN Creatinine Est GFR ( Amer) Est GFR (Non-Af Amer) POC Glucose (mg/dL) 151 H Random Glucose Lactic Acid Calcium Phosphorus Magnesium Total Bilirubin AST ALT Alkaline Phosphatase Total Creatine Kinase CK-MB (Mass) Troponin I NT-Pro-B Natriuret Pep Total Protein Albumin Globulin Albumin/Globulin Ratio Arterial Blood Potassium 5.4 H Blood Type Antibody Screen 10/07/17 10/07/17 10/07/17 11:29 11:45 11:45 WBC 10.2 D RBC 3.61 L Hgb 9.2 L Hct 27.1 L MCV 75.3 L MCH 25.4 L MCHC 33.7 RDW 15.0 H Plt Count 137 MPV 9.1 Neut % (Auto) Lymph % (Auto) Crane % (Auto) Eos % (Auto) Baso % (Auto) Neut # (Auto) Lymph # (Auto) Crane # (Auto) Eos # (Auto) Baso # (Auto) Neutrophils % (Manual) Band Neutrophils % Lymphocytes % (Manual) Monocytes % (Manual) Platelet Estimate Polychromasia Hypochromasia (manual) Anisocytosis (manual) Ovalocytes Arthur Cells Schistocytes PT INR APTT Puncture Site pCO2 pO2 HCO3 ABG pH ABG Total CO2 ABG O2 Saturation ABG Base Excess Adolfo Test ABG Potassium Sodium 135 Chloride 106 Glucose Lactate Potassium 4.9 Carbon Dioxide 19 L Anion Gap 15 BUN 27 H Creatinine 1.1 Est GFR ( Amer) > 60 Est GFR (Non-Af Amer) > 60 POC Glucose (mg/dL) 220 H Random Glucose 227 H Lactic Acid Calcium 8.5 L Phosphorus Magnesium Total Bilirubin AST ALT Alkaline Phosphatase Total Creatine Kinase CK-MB (Mass) Troponin I NT-Pro-B Natriuret Pep Total Protein Albumin Globulin Albumin/Globulin Ratio Arterial Blood Potassium Blood Type Antibody Screen 10/07/17 10/07/17 10/07/17 12:37 12:55 15:19 WBC RBC Hgb Hct MCV MCH MCHC RDW Plt Count MPV Neut % (Auto) Lymph % (Auto) Crane % (Auto) Eos % (Auto) Baso % (Auto) Neut # (Auto) Lymph # (Auto) Crane # (Auto) Eos # (Auto) Baso # (Auto) Neutrophils % (Manual) Band Neutrophils % Lymphocytes % (Manual) Monocytes % (Manual) Platelet Estimate Polychromasia Hypochromasia (manual) Anisocytosis (manual) Ovalocytes Humaira Cells Schistocytes PT INR APTT Puncture Site pCO2 pO2 HCO3 ABG pH ABG Total CO2 ABG O2 Saturation ABG Base Excess Adolfo Test ABG Potassium Sodium 137 Chloride 108 H Glucose Lactate Potassium 4.8 Carbon Dioxide 17 L Anion Gap 17 BUN 27 H Creatinine 1.0 Est GFR ( Amer) > 60 Est GFR (Non-Af Amer) > 60 POC Glucose (mg/dL) Random Glucose 249 H Lactic Acid Calcium 8.2 L Phosphorus 3.5 Magnesium 1.3 L Total Bilirubin 0.7 AST 30 ALT 32 Alkaline Phosphatase 44 Total Creatine Kinase 141 CK-MB (Mass) 2.70 Troponin I 0.5500 H* 0.7820 H* NT-Pro-B Natriuret Pep 523 Total Protein 5.4 L Albumin 3.3 L Globulin 2.2 Albumin/Globulin Ratio 1.5 Arterial Blood Potassium Blood Type B POSITIVE Antibody Screen Negative 10/07/17 10/07/17 10/07/17 15:19 15:26 16:19 WBC 9.0 RBC 3.24 L Hgb 8.4 L Hct 24.6 L MCV 76.1 L MCH 25.9 L MCHC 34.0 RDW 14.6 H Plt Count 128 L MPV 9.7 Neut % (Auto) 87.7 H Lymph % (Auto) 7.0 L Crane % (Auto) 5.0 Eos % (Auto) 0.1 Baso % (Auto) 0.2 Neut # (Auto) 7.9 H Lymph # (Auto) 0.6 L Crane # (Auto) 0.5 Eos # (Auto) 0.0 Baso # (Auto) 0.0 Neutrophils % (Manual) 90 H Band Neutrophils % 3 H Lymphocytes % (Manual) 4 L Monocytes % (Manual) 3 Platelet Estimate Slightly decreased L Polychromasia Slight Hypochromasia (manual) Slight Anisocytosis (manual) Slight Ovalocytes Slight Arthur Cells Slight Schistocytes Slight PT INR APTT Puncture Site pCO2 pO2 HCO3 ABG pH ABG Total CO2 ABG O2 Saturation ABG Base Excess Adolfo Test ABG Potassium Sodium Chloride Glucose Lactate Potassium Carbon Dioxide Anion Gap BUN Creatinine Est GFR ( Amer) Est GFR (Non-Af Amer) POC Glucose (mg/dL) 277 H Random Glucose Lactic Acid 2.9 H Calcium Phosphorus Magnesium Total Bilirubin AST ALT Alkaline Phosphatase Total Creatine Kinase CK-MB (Mass) Troponin I NT-Pro-B Natriuret Pep Total Protein Albumin Globulin Albumin/Globulin Ratio Arterial Blood Potassium Blood Type Antibody Screen 10/07/17 10/07/17 10/07/17 18:15 21:31 21:57 WBC RBC Hgb Hct MCV MCH MCHC RDW Plt Count MPV Neut % (Auto) Lymph % (Auto) Crane % (Auto) Eos % (Auto) Baso % (Auto) Neut # (Auto) Lymph # (Auto) Crane # (Auto) Eos # (Auto) Baso # (Auto) Neutrophils % (Manual) Band Neutrophils % Lymphocytes % (Manual) Monocytes % (Manual) Platelet Estimate Polychromasia Hypochromasia (manual) Anisocytosis (manual) Ovalocytes Arthur Cells Schistocytes PT INR APTT Puncture Site pCO2 pO2 HCO3 ABG pH ABG Total CO2 ABG O2 Saturation ABG Base Excess Adolfo Test ABG Potassium Sodium Chloride Glucose Lactate Potassium Carbon Dioxide Anion Gap BUN Creatinine Est GFR ( Amer) Est GFR (Non-Af Amer) POC Glucose (mg/dL) 285 H Random Glucose Lactic Acid 4.3 H* Calcium Phosphorus Magnesium Total Bilirubin AST ALT Alkaline Phosphatase Total Creatine Kinase CK-MB (Mass) Troponin I 2.0400 H* NT-Pro-B Natriuret Pep Total Protein Albumin Globulin Albumin/Globulin Ratio Arterial Blood Potassium Blood Type Antibody Screen 10/07/17 10/07/17 10/07/17 21:57 21:57 21:57 WBC 7.3 RBC 3.66 L Hgb 9.4 L Hct 28.5 L MCV 77.8 L MCH 25.7 L MCHC 33.1 RDW 16.3 H Plt Count 114 L MPV 9.1 Neut % (Auto) Lymph % (Auto) Crane % (Auto) Eos % (Auto) Baso % (Auto) Neut # (Auto) Lymph # (Auto) Crane # (Auto) Eos # (Auto) Baso # (Auto) Neutrophils % (Manual) Band Neutrophils % Lymphocytes % (Manual) Monocytes % (Manual) Platelet Estimate Polychromasia Hypochromasia (manual) Anisocytosis (manual) Ovalocytes Humaira Cells Schistocytes PT 12.2 INR 1.1 APTT 27 Puncture Site pCO2 pO2 HCO3 ABG pH ABG Total CO2 ABG O2 Saturation ABG Base Excess Adolfo Test ABG Potassium Sodium Chloride Glucose Lactate Potassium Carbon Dioxide Anion Gap BUN Creatinine Est GFR ( Amer) Est GFR (Non-Af Amer) POC Glucose (mg/dL) Random Glucose Lactic Acid 2.7 H Calcium Phosphorus Magnesium Total Bilirubin AST ALT Alkaline Phosphatase Total Creatine Kinase CK-MB (Mass) Troponin I NT-Pro-B Natriuret Pep Total Protein Albumin Globulin Albumin/Globulin Ratio Arterial Blood Potassium Blood Type Antibody Screen
[2017-10-08 05:36] LABS: BASO % 0.4 % (0.0-2.0); EOS % 0.4 % (0.0-4.0); HEMOGLOBIN 8.8 g/dL (12.0-18.0); LYMPH # 0.8 K/uL (1.0-4.3); LYMPH % 11.9 % (20.0-40.0); MEAN CELL VOLUME 77.3 fL (80.0-94.0); MEAN CORPUSCULAR HEMOGLOBIN 26.2 pg (27.0-31.0); MEAN CORPUSCULAR HGB CONC 33.9 g/dL (33.0-37.0); MEAN PLATELET VOLUME 9.4 fL (7.2-11.7); MONO # 0.6 K/uL (0.0-0.8); MONO % 8.3 % (0.0-10.0); NEUT # 5.6 K/uL (1.8-7.0); RBC 3.35 Mil/uL (4.40-5.90); WHITE BLOOD COUNT 7.1 K/uL (4.8-10.8)
[2017-10-08 06:11] LABS: ALB/GLOB RATIO 1.3 (1.0-2.1); ALBUMIN 2.9 g/dL (3.5-5.0); ALT/SGPT 29 U/L (21-72); AST/SGOT 42 U/L (17-59); BLOOD UREA NITROGEN 28 mg/dL (9-20); CALCIUM 8.2 mg/dl (8.6-10.4); GFR AFRICAN-AMERICAN > 60; GFR NON-AFRICAN AMERICAN > 60
[2017-10-08] MEDS: (Novolin R) Insulin Human Regular 100 units/ml vial SC SCH ×4 (07:30→22:00)
--- NOTE | 2017-10-08 08:09 | OP ---
PROCEDURE DATE: 10/07/2017 PREOPERATIVE DIAGNOSIS: Right carotid stenosis. POSTOPERATIVE DIAGNOSIS: Right carotid stenosis. PROCEDURE CARRIED OUT: Right carotid endarterectomy. SURGEON: Rio Malin Jr., MD ASSISTANTS: Dr. Juares and Dr. Coello ANESTHESIOLOGIST: Catherine Mccormick CRNA INDICATIONS: The patient is an older man with left carotid occlusion, history of heart block, history of heart surgery in the past with over 80% stenosis on the right side. OPERATIVE FINDINGS: This is a block extended up to the internal carotid artery. At the end of the procedure, we had an excellent pulse distal with excellent Doppler signals distal to the endarterectomy site. There was a clean end point. DESCRIPTION OF PROCEDURE: The patient was given general anesthesia and intravenous antibiotics. Venodyne boots were applied. A standard right exposure was carried out exposing the common internal and external carotid arteries. After exposure of the vessels, heparin was given. After given heparin, the vessels were clamped. A Scoma shunt was placed. A standard endarterectomy was carried out. After this had been done, the appropriate flushing maneuver was carried out. A bovine pericardial patch was placed here into position. The shunt was removed, and the procedure was terminated. After obtaining hemostasis, we placed a small tissue drain and closed the neck. Blood loss during the procedure was 250 mL. Operation carried out right carotid endarterectomy. The patient not yet awoken at the time of this dictation. Rio Malin Jr., MD cc: Apolinar Branham MD
[2017-10-08] MEDS ORDERED: Midazolam 2 MG/2 ML VIAL ONE (08:58)
[2017-10-08] MEDS ORDERED: Iodixanol 320 MG/ML 100 ML BOTTLE IV ONE (09:00)
[2017-10-08] MEDS ORDERED: Iodixanol 320 MG/ML 200 ML BOTTLE IV ONE (09:00)
--- NOTE | 2017-10-08 09:00 | CP.PCM.PN ---
Subjective - Date & Time of Evaluation Date of Evaluation: 10/08/17 Time of Evaluation: 06:30 - Subjective Subjective: Vascular Surgery Progress Note for Dr. Malin Patient seen this morning without any significant events overnight. Patient complains of tenderness around the incision area and hoarseness of voice , otherwise patient is doing well. Patient was transfused one unit PRBC, responded adequately. Incision site dressing was saturated with serosanguinous fluid. Objective - Vital Signs/Intake and Output Vital Signs (last 24 hours): Temp Pulse Resp BP Pulse Ox 97.6 F 88 13 121/48 L 100 10/08/17 00:00 10/08/17 07:00 10/08/17 07:00 10/08/17 04:00 10/08/17 07:00 Intake and Output: 10/08/17 10/08/17 06:59 18:59 Intake Total 685 50 Output Total 950 Balance -265 50 - Medications Medications: Current Medications Aspirin (Aspirin Chewable) 81 mg PO DAILY [facility] Clopidogrel Bisulfate (Plavix) 75 mg PO DAILY [facility] Ezetimibe (Zetia) 10 mg PO DAILY [facility] Heparin Sodium (Porcine) (Heparin) 5,000 units SC Q12 [facility] Hydromorphone HCl (Dilaudid) 0.5 mg IVP Q4H PRN PRN Reason: Pain, severe (8-10) Last Admin: 10/08/17 03:55 Dose: 0.5 mg Dopamine HCl/Dextrose (Dopamine 400mg/250ml D5w) 400 mg in 250 mls @ 4.252 mls/ hr IV .Q24H PRN; Protocol; 2 MCG/KG/MIN PRN Reason: TITRATE PER MD ORDER Last Titration: 10/07/17 17:00 Dose: 0 mcg/kg/min, 0 mls/hr Lactated Ringer's (Lactated Ringer's) 1,000 mls @ 50 mls/hr IV .Q20H [facility] Last Admin: 10/07/17 16:00 Dose: 50 mls/hr Phenylephrine HCl 30 mg/ (Dextrose) 253 mls @ 15.18 mls/hr IV .[id number] PRN; Protocol; 30 MCG/MIN PRN Reason: TITRATE PER MD ORDER Last Titration: 10/07/17 20:00 Dose: 0 mcg/min, 0 mls/hr Insulin Human Regular (Novolin R) 0 unit SC ACHS [facility] PRN Reason: Protocol Last Admin: 10/08/17 07:30 Dose: Not Given Ondansetron HCl (Zofran Inj) 4 mg IVP Q6H PRN PRN Reason: Nausea/Vomiting Last Admin: 10/08/17 03:00 Dose: 4 mg Oxycodone/Acetaminophen (Percocet 5/325 Mg Tab) 1 tab PO Q4H PRN PRN Reason: Pain, moderate (4-7) Stop: 10/10/17 10:59 Rosuvastatin Calcium (Crestor) 40 mg PO [facility] Last Admin: 10/07/17 23:00 Dose: 40 mg Senna/Docusate Sodium (Senokot S 50 Mg-8.6 Mg) 1 tab PO BID [facility] Last Admin: 10/07/17 19:36 Dose: Not Given Temazepam (Restoril) 15 mg PO [facility] Last Admin: 10/07/17 23:41 Dose: 15 mg - Labs Labs: 10/08/17 05:28 10/08/17 05:28 PT 12.2 SECONDS (9.7-12.2) 10/07/17 21:57 INR 1.1 10/07/17 21:57 APTT 27 SECONDS (21-34) 10/07/17 21:57 - Constitutional Appears: No Acute Distress - Head Exam Head Exam: NORMOCEPHALIC - Eye Exam Eye Exam: EOMI, Normal appearance - ENT Exam ENT Exam: Mucous Membranes Moist - Respiratory Exam Respiratory Exam: NORMAL BREATHING PATTERN - Cardiovascular Exam Cardiovascular Exam: +S1, +S2. absent: Tachycardia - GI/Abdominal Exam GI & Abdominal Exam: Soft - Neurological Exam Neurological Exam: Alert, Awake, Oriented x3 - Skin Skin Exam: Dry, Warm Assessment and Plan - Assessment and Plan (Free Text) Assessment: 72M status post Right CEA POD1 complicated by NSTEMI. Plan: Patient scheduled for cardiac cath this AM. F/u cardiology recs. Monitor hemoglobin Transfuse PRN. Assess surgical site for bleeding PRN. Further recs per Dr. Malin. Christie PGY3
[2017-10-08] MEDS ORDERED: Enoxaparin 40 mg Syringe SC SCH (10:00)
--- NOTE | 2017-10-08 12:39 | CP.CCUPN ---
<AlvarezJenn - Last Filed: 10/08/17 15:47> CCU Subjective - Physician Review Subjective (Free Text): 10/08/17 12:20 72 yo M with PMHx CABG, prostate cancer, DM, HTN, HLD, anemia, s/p right CEA presented with chest pain. Workup was positive for an NSTEMI. Patient underwent cardiac cath today with findings of triple vessel disease. Patient denies any chest pain, SOB, dizziness, abdominal pain, nausea. Patient complains of throat pain. CCU Objective - Vital Signs / Intake & Output Intake and Output (Last 8hrs): Intake & Output 10/07/17 10/08/17 10/08/17 22:59 06:59 14:59 Intake Total 354 350 50 Output Total 500 750 Balance -146 -400 50 Weight 59 lb 8 oz Intake: IV 29 Intake, IV Amount 200 350 50 Left Antecubital 200 350 50 Oral 125 Output: Urine 500 750 Urine, Voided 500 750 - Physical Exam Head: Positive for: Atraumatic, Normocephalic Extroacular Muscles: Positive for: EOMI Respiratory/Chest: Positive for: Clear to Auscultation, Good Air Exchange. Negative for: Respiratory Distress, Wheezes Cardiovascular: Positive for: Regular Rate and Rhythm. Negative for: Murmurs Abdomen: Positive for: Normal Bowel Sounds. Negative for: Tenderness Neurological: Positive for: GCS=15 Psychiatric: Positive for: Alert, Oriented x 3 - Medications Active Medications: Active Medications Generic Name Dose Route Start Last Admin Trade Name Freq PRN Reason Stop Dose Admin Aspirin 81 mg 10/08/17 10:00 Aspirin Chewable PO DAILY [facility] Clopidogrel Bisulfate 75 mg 10/08/17 10:00 Plavix PO DAILY [facility] Ezetimibe 10 mg 10/08/17 10:00 Zetia PO DAILY [facility] Heparin Sodium (Porcine) 5,000 units 10/08/17 10:15 Heparin SC Q8 [facility] Hydromorphone HCl 0.5 mg 10/07/17 10:58 10/08/17 03:55 Dilaudid IVP 0.5 mg Q4H PRN Administration Pain, severe (8-10) Dopamine HCl/Dextrose 400 mg in 250 mls @ 4.252 mls/hr 10/07/17 11:11 17:00 Dopamine 400mg/250ml D5w IV 0 mcg/kg/min .Q24H PRN 0 mls/hr TITRATE PER MD ORDER Titration Protocol 2 MCG/KG/MIN Lactated Ringer's 1,000 mls @ 50 mls/hr 10/07/17 11:00 10/07/17 16:00 Lactated Ringer's IV 50 mls/hr .Q20H RAMIRO Administration Phenylephrine HCl 30 mg/ 253 mls @ 15.18 mls/hr 10/07/17 14:52 10/07/17 20:00 Dextrose IV 0 mcg/min .[id number] PRN 0 mls/hr TITRATE PER MD ORDER Titration Protocol 30 MCG/MIN Insulin Human Regular 0 unit 10/07/17 11:30 10/08/17 07:30 Novolin R SC Not Given ACHS RAMIRO Protocol Ondansetron HCl 4 mg 10/07/17 10:58 10/08/17 03:00 Zofran Inj IVP 4 mg Q6H PRN Administration Nausea/Vomiting Oxycodone/Acetaminophen 1 tab 10/07/17 10:58 Percocet 5/325 Mg Tab PO 10/10/17 10:59 Q4H PRN Pain, moderate (4-7) Rosuvastatin Calcium 40 mg 10/07/17 22:00 10/07/17 23:00 Crestor PO 40 mg HS RAMIRO Administration Senna/Docusate Sodium 1 tab 10/07/17 11:45 10/07/17 19:36 Senokot S 50 Mg-8.6 Mg PO Not Given BID RAMIRO Temazepam 15 mg 10/07/17 22:00 10/07/17 23:41 Restoril PO 15 mg HS RAMIRO Administration - Patient Studies Lab Studies: Lab Studies 10/08/17 10/08/17 10/08/17 Range/Units 11:15 05:28 05:28 WBC (4.8-10.8) K/uL RBC (4.40-5.90) Mil/uL Hgb (12.0-18.0) g/dL Hct (35.0-51.0) % MCV (80.0-94.0) fL MCH (27.0-31.0) pg MCHC (33.0-37.0) g/dL RDW (11.5-14.5) % Plt Count (130-400) K/uL MPV (7.2-11.7) fL Neut % (Auto) (50.0-75.0) % Lymph % (Auto) (20.0-40.0) % Cherry % (Auto) (0.0-10.0) % Eos % (Auto) (0.0-4.0) % Baso % (Auto) (0.0-2.0) % Neut # (Auto) (1.8-7.0) K/uL Lymph # (Auto) (1.0-4.3) K/uL Cherry # (Auto) (0.0-0.8) K/uL Eos # (Auto) (0.0-0.7) K/uL Baso # (Auto) (0.0-0.2) K/uL Neutrophils % (Manual) (50-75) % Band Neutrophils % (0-2) % Lymphocytes % (Manual) (20-40) % Monocytes % (Manual) (0-10) % Platelet Estimate (NORMAL) Polychromasia Hypochromasia (manual) Anisocytosis (manual) Ovalocytes [place] Cells Schistocytes PT (9.7-12.2) SECONDS INR APTT (21-34) SECONDS Sodium 137 (132-148) mmol/L Potassium 5.0 (3.6-5.2) mmol/L Chloride 105 (98-107) mmol/L Carbon Dioxide 24 (22-30) mmol/L Anion Gap 13 (10-20) BUN 28 H (9-20) mg/dL Creatinine 1.1 (0.8-1.5) mg/dL Est GFR ( Amer) > 60 Est GFR (Non-Af Amer) > 60 POC Glucose (mg/dL) 207 H (65-110) mg/dL Random Glucose 215 H (75-110) mg/dL Lactic Acid 1.3 (0.7-2.1) mmol/L Calcium 8.2 L (8.6-10.4) mg/dl Phosphorus 3.3 (2.5-4.5) mg/dL Magnesium 1.4 L (1.6-2.3) mg/dL Total Bilirubin 1.0 (0.2-1.3) mg/dL AST 42 (17-59) U/L ALT 29 (21-72) U/L Alkaline Phosphatase 37 L (38-126) U/L Total Creatine Kinase (55-170) U/L CK-MB (Mass) (0.0-3.38) ng/mL Troponin I 4.5100 H* (0.00-0.120) ng/mL NT-Pro-B Natriuret Pep (0-900) pg/mL Total Protein 5.1 L (6.3-8.3) g/dL Albumin 2.9 L (3.5-5.0) g/dL Globulin 2.2 (2.2-3.9) gm/dL Albumin/Globulin Ratio 1.3 (1.0-2.1) Blood Type Antibody Screen 10/08/17 10/07/17 10/07/17 Range/Units 05:28 21:57 21:57 WBC 7.1 (4.8-10.8) K/uL RBC 3.35 L (4.40-5.90) Mil/uL Hgb 8.8 L (12.0-18.0) g/dL Hct 25.9 L (35.0-51.0) % MCV 77.3 L (80.0-94.0) fL MCH 26.2 L (27.0-31.0) pg MCHC 33.9 (33.0-37.0) g/dL RDW 16.0 H (11.5-14.5) % Plt Count 98 L (130-400) K/uL MPV 9.4 (7.2-11.7) fL Neut % (Auto) 79.0 H (50.0-75.0) % Lymph % (Auto) 11.9 L (20.0-40.0) % Cherry % (Auto) 8.3 (0.0-10.0) % Eos % (Auto) 0.4 (0.0-4.0) % Baso % (Auto) 0.4 (0.0-2.0) % Neut # (Auto) 5.6 (1.8-7.0) K/uL Lymph # (Auto) 0.8 L (1.0-4.3) K/uL Cherry # (Auto) 0.6 (0.0-0.8) K/uL Eos # (Auto) 0.0 (0.0-0.7) K/uL Baso # (Auto) 0.0 (0.0-0.2) K/uL Neutrophils % (Manual) (50-75) % Band Neutrophils % (0-2) % Lymphocytes % (Manual) (20-40) % Monocytes % (Manual) (0-10) % Platelet Estimate (NORMAL) Polychromasia Hypochromasia (manual) Anisocytosis (manual) Ovalocytes [place] Cells Schistocytes PT 12.2 (9.7-12.2) SECONDS INR 1.1 APTT 27 (21-34) SECONDS Sodium (132-148) mmol/L Potassium (3.6-5.2) mmol/L Chloride (98-107) mmol/L Carbon Dioxide (22-30) mmol/L Anion Gap (10-20) BUN (9-20) mg/dL Creatinine (0.8-1.5) mg/dL Est GFR ( Amer) Est GFR (Non-Af Amer) POC Glucose (mg/dL) (65-110) mg/dL Random Glucose (75-110) mg/dL Lactic Acid 2.7 H (0.7-2.1) mmol/L Calcium (8.6-10.4) mg/dl Phosphorus (2.5-4.5) mg/dL Magnesium (1.6-2.3) mg/dL Total Bilirubin (0.2-1.3) mg/dL AST (17-59) U/L ALT (21-72) U/L Alkaline Phosphatase (38-126) U/L Total Creatine Kinase (55-170) U/L CK-MB (Mass) (0.0-3.38) ng/mL Troponin I (0.00-0.120) ng/mL NT-Pro-B Natriuret Pep (0-900) pg/mL Total Protein (6.3-8.3) g/dL Albumin (3.5-5.0) g/dL Globulin (2.2-3.9) gm/dL Albumin/Globulin Ratio (1.0-2.1) Blood Type Antibody Screen 10/07/17 10/07/17 10/07/17 Range/Units 21:57 21:57 21:31 WBC 7.3 (4.8-10.8) K/uL RBC 3.66 L (4.40-5.90) Mil/uL Hgb 9.4 L (12.0-18.0) g/dL Hct 28.5 L (35.0-51.0) % MCV 77.8 L (80.0-94.0) fL MCH 25.7 L (27.0-31.0) pg MCHC 33.1 (33.0-37.0) g/dL RDW 16.3 H (11.5-14.5) % Plt Count 114 L (130-400) K/uL MPV 9.1 (7.2-11.7) fL Neut % (Auto) (50.0-75.0) % Lymph % (Auto) (20.0-40.0) % Cherry % (Auto) (0.0-10.0) % Eos % (Auto) (0.0-4.0) % Baso % (Auto) (0.0-2.0) % Neut # (Auto) (1.8-7.0) K/uL Lymph # (Auto) (1.0-4.3) K/uL Cherry # (Auto) (0.0-0.8) K/uL Eos # (Auto) (0.0-0.7) K/uL Baso # (Auto) (0.0-0.2) K/uL Neutrophils % (Manual) (50-75) % Band Neutrophils % (0-2) % Lymphocytes % (Manual) (20-40) % Monocytes % (Manual) (0-10) % Platelet Estimate (NORMAL) Polychromasia Hypochromasia (manual) Anisocytosis (manual) Ovalocytes [place] Cells Schistocytes PT (9.7-12.2) SECONDS INR APTT (21-34) SECONDS Sodium (132-148) mmol/L Potassium (3.6-5.2) mmol/L Chloride (98-107) mmol/L Carbon Dioxide (22-30) mmol/L Anion Gap (10-20) BUN (9-20) mg/dL Creatinine (0.8-1.5) mg/dL Est GFR ( Amer) Est GFR (Non-Af Amer) POC Glucose (mg/dL) 285 H (65-110) mg/dL Random Glucose (75-110) mg/dL Lactic Acid (0.7-2.1) mmol/L Calcium (8.6-10.4) mg/dl Phosphorus (2.5-4.5) mg/dL Magnesium (1.6-2.3) mg/dL Total Bilirubin (0.2-1.3) mg/dL AST (17-59) U/L ALT (21-72) U/L Alkaline Phosphatase (38-126) U/L Total Creatine Kinase (55-170) U/L CK-MB (Mass) (0.0-3.38) ng/mL Troponin I 2.0400 H* (0.00-0.120) ng/mL NT-Pro-B Natriuret Pep (0-900) pg/mL Total Protein (6.3-8.3) g/dL Albumin (3.5-5.0) g/dL Globulin (2.2-3.9) gm/dL Albumin/Globulin Ratio (1.0-2.1) Blood Type Antibody Screen 10/07/17 10/07/17 10/07/17 Range/Units 18:15 16:19 15:26 WBC 9.0 (4.8-10.8) K/uL RBC 3.24 L (4.40-5.90) Mil/uL Hgb 8.4 L (12.0-18.0) g/dL Hct 24.6 L (35.0-51.0) % MCV 76.1 L (80.0-94.0) fL MCH 25.9 L (27.0-31.0) pg MCHC 34.0 (33.0-37.0) g/dL RDW 14.6 H (11.5-14.5) % Plt Count 128 L (130-400) K/uL MPV 9.7 (7.2-11.7) fL Neut % (Auto) 87.7 H (50.0-75.0) % Lymph % (Auto) 7.0 L (20.0-40.0) % Cherry % (Auto) 5.0 (0.0-10.0) % Eos % (Auto) 0.1 (0.0-4.0) % Baso % (Auto) 0.2 (0.0-2.0) % Neut # (Auto) 7.9 H (1.8-7.0) K/uL Lymph # (Auto) 0.6 L (1.0-4.3) K/uL Cherry # (Auto) 0.5 (0.0-0.8) K/uL Eos # (Auto) 0.0 (0.0-0.7) K/uL Baso # (Auto) 0.0 (0.0-0.2) K/uL Neutrophils % (Manual) 90 H (50-75) % Band Neutrophils % 3 H (0-2) % Lymphocytes % (Manual) 4 L (20-40) % Monocytes % (Manual) 3 (0-10) % Platelet Estimate Slightly decreased L (NORMAL) Polychromasia Slight Hypochromasia (manual) Slight Anisocytosis (manual) Slight Ovalocytes Slight [place] Cells Slight Schistocytes Slight PT (9.7-12.2) SECONDS INR APTT (21-34) SECONDS Sodium (132-148) mmol/L Potassium (3.6-5.2) mmol/L Chloride (98-107) mmol/L Carbon Dioxide (22-30) mmol/L Anion Gap (10-20) BUN (9-20) mg/dL Creatinine (0.8-1.5) mg/dL Est GFR ( Amer) Est GFR (Non-Af Amer) POC Glucose (mg/dL) 277 H (65-110) mg/dL Random Glucose (75-110) mg/dL Lactic Acid 4.3 H* (0.7-2.1) mmol/L Calcium (8.6-10.4) mg/dl Phosphorus (2.5-4.5) mg/dL Magnesium (1.6-2.3) mg/dL Total Bilirubin (0.2-1.3) mg/dL AST (17-59) U/L ALT (21-72) U/L Alkaline Phosphatase (38-126) U/L Total Creatine Kinase (55-170) U/L CK-MB (Mass) (0.0-3.38) ng/mL Troponin I (0.00-0.120) ng/mL NT-Pro-B Natriuret Pep (0-900) pg/mL Total Protein (6.3-8.3) g/dL Albumin (3.5-5.0) g/dL Globulin (2.2-3.9) gm/dL Albumin/Globulin Ratio (1.0-2.1) Blood Type Antibody Screen 10/07/17 10/07/17 10/07/17 Range/Units 15:19 15:19 12:55 WBC (4.8-10.8) K/uL RBC (4.40-5.90) Mil/uL Hgb (12.0-18.0) g/dL Hct (35.0-51.0) % MCV (80.0-94.0) fL MCH (27.0-31.0) pg MCHC (33.0-37.0) g/dL RDW (11.5-14.5) % Plt Count (130-400) K/uL MPV (7.2-11.7) fL Neut % (Auto) (50.0-75.0) % Lymph % (Auto) (20.0-40.0) % Cherry % (Auto) (0.0-10.0) % Eos % (Auto) (0.0-4.0) % Baso % (Auto) (0.0-2.0) % Neut # (Auto) (1.8-7.0) K/uL Lymph # (Auto) (1.0-4.3) K/uL Cherry # (Auto) (0.0-0.8) K/uL Eos # (Auto) (0.0-0.7) K/uL Baso # (Auto) (0.0-0.2) K/uL Neutrophils % (Manual) (50-75) % Band Neutrophils % (0-2) % Lymphocytes % (Manual) (20-40) % Monocytes % (Manual) (0-10) % Platelet Estimate (NORMAL) Polychromasia Hypochromasia (manual) Anisocytosis (manual) Ovalocytes [place] Cells Schistocytes PT (9.7-12.2) SECONDS INR APTT (21-34) SECONDS Sodium 137 (132-148) mmol/L Potassium 4.8 (3.6-5.2) mmol/L Chloride 108 H (98-107) mmol/L Carbon Dioxide 17 L (22-30) mmol/L Anion Gap 17 (10-20) BUN 27 H (9-20) mg/dL Creatinine 1.0 (0.8-1.5) mg/dL Est GFR ( Amer) > 60 Est GFR (Non-Af Amer) > 60 POC Glucose (mg/dL) (65-110) mg/dL Random Glucose 249 H (75-110) mg/dL Lactic Acid 2.9 H (0.7-2.1) mmol/L Calcium 8.2 L (8.6-10.4) mg/dl Phosphorus 3.5 (2.5-4.5) mg/dL Magnesium 1.3 L (1.6-2.3) mg/dL Total Bilirubin 0.7 (0.2-1.3) mg/dL AST 30 (17-59) U/L ALT 32 (21-72) U/L Alkaline Phosphatase 44 (38-126) U/L Total Creatine Kinase (55-170) U/L CK-MB (Mass) (0.0-3.38) ng/mL Troponin I 0.7820 H* (0.00-0.120) ng/mL NT-Pro-B Natriuret Pep 523 (0-900) pg/mL Total Protein 5.4 L (6.3-8.3) g/dL Albumin 3.3 L (3.5-5.0) g/dL Globulin 2.2 (2.2-3.9) gm/dL Albumin/Globulin Ratio 1.5 (1.0-2.1) Blood Type B POSITIVE Antibody Screen Negative 10/07/17 Range/Units 12:37 WBC (4.8-10.8) K/uL RBC (4.40-5.90) Mil/uL Hgb (12.0-18.0) g/dL Hct (35.0-51.0) % MCV (80.0-94.0) fL MCH (27.0-31.0) pg MCHC (33.0-37.0) g/dL RDW (11.5-14.5) % Plt Count (130-400) K/uL MPV (7.2-11.7) fL Neut % (Auto) (50.0-75.0) % Lymph % (Auto) (20.0-40.0) % Cherry % (Auto) (0.0-10.0) % Eos % (Auto) (0.0-4.0) % Baso % (Auto) (0.0-2.0) % Neut # (Auto) (1.8-7.0) K/uL Lymph # (Auto) (1.0-4.3) K/uL Cherry # (Auto) (0.0-0.8) K/uL Eos # (Auto) (0.0-0.7) K/uL Baso # (Auto) (0.0-0.2) K/uL Neutrophils % (Manual) (50-75) % Band Neutrophils % (0-2) % Lymphocytes % (Manual) (20-40) % Monocytes % (Manual) (0-10) % Platelet Estimate (NORMAL) Polychromasia Hypochromasia (manual) Anisocytosis (manual) Ovalocytes [place] Cells Schistocytes PT (9.7-12.2) SECONDS INR APTT (21-34) SECONDS Sodium (132-148) mmol/L Potassium (3.6-5.2) mmol/L Chloride (98-107) mmol/L Carbon Dioxide (22-30) mmol/L Anion Gap (10-20) BUN (9-20) mg/dL Creatinine (0.8-1.5) mg/dL Est GFR ( Amer) Est GFR (Non-Af Amer) POC Glucose (mg/dL) (65-110) mg/dL Random Glucose (75-110) mg/dL Lactic Acid (0.7-2.1) mmol/L Calcium (8.6-10.4) mg/dl Phosphorus (2.5-4.5) mg/dL Magnesium (1.6-2.3) mg/dL Total Bilirubin (0.2-1.3) mg/dL AST (17-59) U/L ALT (21-72) U/L Alkaline Phosphatase (38-126) U/L Total Creatine Kinase 141 (55-170) U/L CK-MB (Mass) 2.70 (0.0-3.38) ng/mL Troponin I 0.5500 H* (0.00-0.120) ng/mL NT-Pro-B Natriuret Pep (0-900) pg/mL Total Protein (6.3-8.3) g/dL Albumin (3.5-5.0) g/dL Globulin (2.2-3.9) gm/dL Albumin/Globulin Ratio (1.0-2.1) Blood Type Antibody Screen Laboratory Results - last 24 hr 10/07/17 10/07/17 10/07/17 12:37 12:55 15:19 WBC RBC Hgb Hct MCV MCH MCHC RDW Plt Count MPV Neut % (Auto) Lymph % (Auto) Cherry % (Auto) Eos % (Auto) Baso % (Auto) Neut # (Auto) Lymph # (Auto) Cherry # (Auto) Eos # (Auto) Baso # (Auto) Neutrophils % (Manual) Band Neutrophils % Lymphocytes % (Manual) Monocytes % (Manual) Platelet Estimate Polychromasia Hypochromasia (manual) Anisocytosis (manual) Ovalocytes [place] Cells Schistocytes PT INR APTT Sodium 137 Potassium 4.8 Chloride 108 H Carbon Dioxide 17 L Anion Gap 17 BUN 27 H Creatinine 1.0 Est GFR ( Amer) > 60 Est GFR (Non-Af Amer) > 60 POC Glucose (mg/dL) Random Glucose 249 H Lactic Acid Calcium 8.2 L Phosphorus 3.5 Magnesium 1.3 L Total Bilirubin 0.7 AST 30 ALT 32 Alkaline Phosphatase 44 Total Creatine Kinase 141 CK-MB (Mass) 2.70 Troponin I 0.5500 H* 0.7820 H* NT-Pro-B Natriuret Pep 523 Total Protein 5.4 L Albumin 3.3 L Globulin 2.2 Albumin/Globulin Ratio 1.5 Blood Type B POSITIVE Antibody Screen Negative 10/07/17 10/07/17 10/07/17 15:19 15:26 16:19 WBC 9.0 RBC 3.24 L Hgb 8.4 L Hct 24.6 L MCV 76.1 L MCH 25.9 L MCHC 34.0 RDW 14.6 H Plt Count 128 L MPV 9.7 Neut % (Auto) 87.7 H Lymph % (Auto) 7.0 L Cherry % (Auto) 5.0 Eos % (Auto) 0.1 Baso % (Auto) 0.2 Neut # (Auto) 7.9 H Lymph # (Auto) 0.6 L Cherry # (Auto) 0.5 Eos # (Auto) 0.0 Baso # (Auto) 0.0 Neutrophils % (Manual) 90 H Band Neutrophils % 3 H Lymphocytes % (Manual) 4 L Monocytes % (Manual) 3 Platelet Estimate Slightly decreased L Polychromasia Slight Hypochromasia (manual) Slight Anisocytosis (manual) Slight Ovalocytes Slight [place] Cells Slight Schistocytes Slight PT INR APTT Sodium Potassium Chloride Carbon Dioxide Anion Gap BUN Creatinine Est GFR ( Amer) Est GFR (Non-Af Amer) POC Glucose (mg/dL) 277 H Random Glucose Lactic Acid 2.9 H Calcium Phosphorus Magnesium Total Bilirubin AST ALT Alkaline Phosphatase Total Creatine Kinase CK-MB (Mass) Troponin I NT-Pro-B Natriuret Pep Total Protein Albumin Globulin Albumin/Globulin Ratio Blood Type Antibody Screen 10/07/17 10/07/17 10/07/17 18:15 21:31 21:57 WBC RBC Hgb Hct MCV MCH MCHC RDW Plt Count MPV Neut % (Auto) Lymph % (Auto) Cherry % (Auto) Eos % (Auto) Baso % (Auto) Neut # (Auto) Lymph # (Auto) Cherry # (Auto) Eos # (Auto) Baso # (Auto) Neutrophils % (Manual) Band Neutrophils % Lymphocytes % (Manual) Monocytes % (Manual) Platelet Estimate Polychromasia Hypochromasia (manual) Anisocytosis (manual) Ovalocytes [place] Cells Schistocytes PT INR APTT Sodium Potassium Chloride Carbon Dioxide Anion Gap BUN Creatinine Est GFR ( Amer) Est GFR (Non-Af Amer) POC Glucose (mg/dL) 285 H Random Glucose Lactic Acid 4.3 H* Calcium Phosphorus Magnesium Total Bilirubin AST ALT Alkaline Phosphatase Total Creatine Kinase CK-MB (Mass) Troponin I 2.0400 H* NT-Pro-B Natriuret Pep Total Protein Albumin Globulin Albumin/Globulin Ratio Blood Type Antibody Screen 10/07/17 10/07/17 10/07/17 21:57 21:57 21:57 WBC 7.3 RBC 3.66 L Hgb 9.4 L Hct 28.5 L MCV 77.8 L MCH 25.7 L MCHC 33.1 RDW 16.3 H Plt Count 114 L MPV 9.1 Neut % (Auto) Lymph % (Auto) Cherry % (Auto) Eos % (Auto) Baso % (Auto) Neut # (Auto) Lymph # (Auto) Cherry # (Auto) Eos # (Auto) Baso # (Auto) Neutrophils % (Manual) Band Neutrophils % Lymphocytes % (Manual) Monocytes % (Manual) Platelet Estimate Polychromasia Hypochromasia (manual) Anisocytosis (manual) Ovalocytes [place] Cells Schistocytes PT 12.2 INR 1.1 APTT 27 Sodium Potassium Chloride Carbon Dioxide Anion Gap BUN Creatinine Est GFR ( Amer) Est GFR (Non-Af Amer) POC Glucose (mg/dL) Random Glucose Lactic Acid 2.7 H Calcium Phosphorus Magnesium Total Bilirubin AST ALT Alkaline Phosphatase Total Creatine Kinase CK-MB (Mass) Troponin I NT-Pro-B Natriuret Pep Total Protein Albumin Globulin Albumin/Globulin Ratio Blood Type Antibody Screen 10/08/17 10/08/17 10/08/17 05:28 05:28 05:28 WBC 7.1 RBC 3.35 L Hgb 8.8 L Hct 25.9 L MCV 77.3 L MCH 26.2 L MCHC 33.9 RDW 16.0 H Plt Count 98 L MPV 9.4 Neut % (Auto) 79.0 H Lymph % (Auto) 11.9 L Cherry % (Auto) 8.3 Eos % (Auto) 0.4 Baso % (Auto) 0.4 Neut # (Auto) 5.6 Lymph # (Auto) 0.8 L Cherry # (Auto) 0.6 Eos # (Auto) 0.0 Baso # (Auto) 0.0 Neutrophils % (Manual) Band Neutrophils % Lymphocytes % (Manual) Monocytes % (Manual) Platelet Estimate Polychromasia Hypochromasia (manual) Anisocytosis (manual) Ovalocytes [place] Cells Schistocytes PT INR APTT Sodium 137 Potassium 5.0 Chloride 105 Carbon Dioxide 24 Anion Gap 13 BUN 28 H Creatinine 1.1 Est GFR ( Amer) > 60 Est GFR (Non-Af Amer) > 60 POC Glucose (mg/dL) Random Glucose 215 H Lactic Acid 1.3 Calcium 8.2 L Phosphorus 3.3 Magnesium 1.4 L Total Bilirubin 1.0 AST 42 ALT 29 Alkaline Phosphatase 37 L Total Creatine Kinase CK-MB (Mass) Troponin I 4.5100 H* NT-Pro-B Natriuret Pep Total Protein 5.1 L Albumin 2.9 L Globulin 2.2 Albumin/Globulin Ratio 1.3 Blood Type Antibody Screen 10/08/17 11:15 WBC RBC Hgb Hct MCV MCH MCHC RDW Plt Count MPV Neut % (Auto) Lymph % (Auto) Cherry % (Auto) Eos % (Auto) Baso % (Auto) Neut # (Auto) Lymph # (Auto) Cherry # (Auto) Eos # (Auto) Baso # (Auto) Neutrophils % (Manual) Band Neutrophils % Lymphocytes % (Manual) Monocytes % (Manual) Platelet Estimate Polychromasia Hypochromasia (manual) Anisocytosis (manual) Ovalocytes [place] Cells Schistocytes PT INR APTT Sodium Potassium Chloride Carbon Dioxide Anion Gap BUN Creatinine Est GFR ( Amer) Est GFR (Non-Af Amer) POC Glucose (mg/dL) 207 H Random Glucose Lactic Acid Calcium Phosphorus Magnesium Total Bilirubin AST ALT Alkaline Phosphatase Total Creatine Kinase CK-MB (Mass) Troponin I NT-Pro-B Natriuret Pep Total Protein Albumin Globulin Albumin/Globulin Ratio Blood Type Antibody Screen EKG/Cardiology Studies: Cardiology / EKG Studies 10/07/17 12:30 EKG [ELECTROCARDIOGRAM] Stat Comment: IN PACU Mode Of Transportation: PORTABLE Reason For Exam: chest pain 10/08/17 06:00 EKG [ELECTROCARDIOGRAM] Routine Comment: Mode Of Transportation: Reason For Exam: elevated troponin Fingerstick Blood Sugar Results: 285 Review of Systems - Constitutional Constitutional: absent: Sweats - EENT Eyes: absent: Change in Vision Nose/Mouth/Throat: Sore Throat - Cardiovascular Cardiovascular: absent: Chest Pain, Diaphoresis, Dyspnea, Leg Edema - Respiratory Respiratory: absent: Cough, Dyspnea - Gastrointestinal Gastrointestinal: absent: Abdominal Pain, Diarrhea, Nausea, Vomiting Critical Care Progress Note - Prophylaxis DVT Prophylaxis DVT: Heparin SQ - Nutrition Nutrition: Nutrition Category Date Time Status NPO Diet [DIET] Diets 10/08/17 Breakfast Active Assessment/Plan - Assessment and Plan (Free Text) Assessment: 72 yo M with PMHx CABG, Prostate ca, DM, HTN, HLD, anemia admitted with NSTEMI s /p R CEA 1. NSTEMI -cardiac cath today with Dr. Johnston revealed triple vessel disease consistent with prior findings -Pt to go for stenting at [facility] -f/u echo -Dr. Johnston consult -ASA 81mg -Plavix 75mg -Heparin 5000 sc Q12 2. Hypotension -LR @50/hr -off pressors, BP holding 3. Anemia -pt transfused -monitor Hgb and transfuse as needed 4. HLD -Zetia 10mg -Crestor-40mg 5. Dm -ISS Ppx -Heparin 5000U sc Q8 -SCD - Date & Time Date: 10/08/17 Time: 13:06 <Simon Bejarano M - Last Filed: 10/08/17 20:03> CCU Objective - Vital Signs / Intake & Output Vital Signs (Last 4 hours): Vital Signs Temp Pulse Resp BP Pulse Ox 10/08/17 19:00 89 15 100 10/08/17 18:46 94 H 17 106/59 L 96 10/08/17 18:06 93 H 14 114/65 100 10/08/17 18:00 93 H 15 100 10/08/17 17:51 96 H 17 123/67 100 10/08/17 17:40 97.5 F L 92 H 18 120/61 10/08/17 17:36 90 16 120/61 100 10/08/17 17:21 94 H 19 117/64 100 10/08/17 17:06 96 H 15 125/63 100 10/08/17 17:00 95 H 18 100 10/08/17 16:55 96 H 117/64 10/08/17 16:51 96 H 17 117/64 100 10/08/17 16:36 94 H 15 119/61 96 10/08/17 16:21 94 H 15 111/54 L 94 L 10/08/17 16:06 92 H 17 112/55 L 95 10/08/17 16:00 93 H 16 95 Intake and Output (Last 8hrs): Intake & Output 10/08/17 10/08/17 10/08/17 06:59 14:59 22:59 Intake Total 350 300 525 Output Total 750 1100 Balance -400 300 -575 Weight 59 lb 8 oz Intake: Intake, IV Amount 350 250 200 Left Antecubital 350 250 200 Oral 50 Blood Product 0 325 Red Blood Cells Cpd As1 0 325 Lr Unit [id number] Output: Urine 750 1100 Urine, Voided 750 1100 - Medications Active Medications: Active Medications Generic Name Dose Route Start Last Admin Trade Name Freq PRN Reason Stop Dose Admin Aspirin 81 mg 10/08/17 10:00 10/08/17 12:23 Aspirin Chewable PO 81 mg DAILY RAMIRO Administration Clopidogrel Bisulfate 75 mg 10/08/17 10:00 10/08/17 12:22 Plavix PO 75 mg DAILY RAMIRO Administration Ezetimibe 10 mg 10/08/17 10:00 10/08/17 12:22 Zetia PO 10 mg DAILY RAMIRO Administration Heparin Sodium (Porcine) 5,000 units 10/08/17 10:15 10/08/17 14:00 Heparin SC Not Given Q8 RAMIRO Lactated Ringer's 1,000 mls @ 50 mls/hr 10/07/17 11:00 10/08/17 17:59 Lactated Ringer's IV 50 mls/hr .Q20H RAMIRO Administration Insulin Human Regular 0 unit 10/07/17 11:30 10/08/17 17:52 Novolin R SC 2 units ACHS RAMIRO Administration Protocol Ondansetron HCl 4 mg 10/07/17 10:58 10/08/17 17:53 Zofran Inj IVP 4 mg Q6H PRN Administration Nausea/Vomiting Rosuvastatin Calcium 40 mg 10/07/17 22:00 10/07/17 23:00 Crestor PO 40 mg HS RAMIRO Administration Senna/Docusate Sodium 1 tab 10/07/17 11:45 10/08/17 17:53 Senokot S 50 Mg-8.6 Mg PO 1 tab BID RAMIRO Administration - Patient Studies Lab Studies: Lab Studies 10/08/17 10/08/17 10/08/17 Range/Units 16:24 11:15 05:28 WBC (4.8-10.8) K/uL RBC (4.40-5.90) Mil/uL Hgb (12.0-18.0) g/dL Hct (35.0-51.0) % MCV (80.0-94.0) fL MCH (27.0-31.0) pg MCHC (33.0-37.0) g/dL RDW (11.5-14.5) % Plt Count (130-400) K/uL MPV (7.2-11.7) fL Neut % (Auto) (50.0-75.0) % Lymph % (Auto) (20.0-40.0) % Cherry % (Auto) (0.0-10.0) % Eos % (Auto) (0.0-4.0) % Baso % (Auto) (0.0-2.0) % Neut # (Auto) (1.8-7.0) K/uL Lymph # (Auto) (1.0-4.3) K/uL Cherry # (Auto) (0.0-0.8) K/uL Eos # (Auto) (0.0-0.7) K/uL Baso # (Auto) (0.0-0.2) K/uL PT (9.7-12.2) SECONDS INR APTT (21-34) SECONDS Sodium 137 (132-148) mmol/L Potassium 5.0 (3.6-5.2) mmol/L Chloride 105 (98-107) mmol/L Carbon Dioxide 24 (22-30) mmol/L Anion Gap 13 (10-20) BUN 28 H (9-20) mg/dL Creatinine 1.1 (0.8-1.5) mg/dL Est GFR ( Amer) > 60 Est GFR (Non-Af Amer) > 60 POC Glucose (mg/dL) 235 H 207 H (65-110) mg/dL Random Glucose 215 H (75-110) mg/dL Lactic Acid (0.7-2.1) mmol/L Calcium 8.2 L (8.6-10.4) mg/dl Phosphorus 3.3 (2.5-4.5) mg/dL Magnesium 1.4 L (1.6-2.3) mg/dL Total Bilirubin 1.0 (0.2-1.3) mg/dL AST 42 (17-59) U/L ALT 29 (21-72) U/L Alkaline Phosphatase 37 L (38-126) U/L Troponin I 4.5100 H* (0.00-0.120) ng/mL Total Protein 5.1 L (6.3-8.3) g/dL Albumin 2.9 L (3.5-5.0) g/dL Globulin 2.2 (2.2-3.9) gm/dL Albumin/Globulin Ratio 1.3 (1.0-2.1) Blood Type Antibody Screen 10/08/17 10/08/17 10/07/17 Range/Units 05:28 05:28 21:57 WBC 7.1 (4.8-10.8) K/uL RBC 3.35 L (4.40-5.90) Mil/uL Hgb 8.8 L (12.0-18.0) g/dL Hct 25.9 L (35.0-51.0) % MCV 77.3 L (80.0-94.0) fL MCH 26.2 L (27.0-31.0) pg MCHC 33.9 (33.0-37.0) g/dL RDW 16.0 H (11.5-14.5) % Plt Count 98 L (130-400) K/uL MPV 9.4 (7.2-11.7) fL Neut % (Auto) 79.0 H (50.0-75.0) % Lymph % (Auto) 11.9 L (20.0-40.0) % Cherry % (Auto) 8.3 (0.0-10.0) % Eos % (Auto) 0.4 (0.0-4.0) % Baso % (Auto) 0.4 (0.0-2.0) % Neut # (Auto) 5.6 (1.8-7.0) K/uL Lymph # (Auto) 0.8 L (1.0-4.3) K/uL [place] # (Auto) 0.6 (0.0-0.8) K/uL Eos # (Auto) 0.0 (0.0-0.7) K/uL Baso # (Auto) 0.0 (0.0-0.2) K/uL PT (9.7-12.2) SECONDS INR APTT (21-34) SECONDS Sodium (132-148) mmol/L Potassium (3.6-5.2) mmol/L Chloride (98-107) mmol/L Carbon Dioxide (22-30) mmol/L Anion Gap (10-20) BUN (9-20) mg/dL Creatinine (0.8-1.5) mg/dL Est GFR ( Amer) Est GFR (Non-Af Amer) POC Glucose (mg/dL) (65-110) mg/dL Random Glucose (75-110) mg/dL Lactic Acid 1.3 2.7 H (0.7-2.1) mmol/L Calcium (8.6-10.4) mg/dl Phosphorus (2.5-4.5) mg/dL Magnesium (1.6-2.3) mg/dL Total Bilirubin (0.2-1.3) mg/dL AST (17-59) U/L ALT (21-72) U/L Alkaline Phosphatase (38-126) U/L Troponin I (0.00-0.120) ng/mL Total Protein (6.3-8.3) g/dL Albumin (3.5-5.0) g/dL Globulin (2.2-3.9) gm/dL Albumin/Globulin Ratio (1.0-2.1) Blood Type Antibody Screen 10/07/17 10/07/17 10/07/17 Range/Units 21:57 21:57 21:57 WBC 7.3 (4.8-10.8) K/uL RBC 3.66 L (4.40-5.90) Mil/uL Hgb 9.4 L (12.0-18.0) g/dL Hct 28.5 L (35.0-51.0) % MCV 77.8 L (80.0-94.0) fL MCH 25.7 L (27.0-31.0) pg MCHC 33.1 (33.0-37.0) g/dL RDW 16.3 H (11.5-14.5) % Plt Count 114 L (130-400) K/uL MPV 9.1 (7.2-11.7) fL Neut % (Auto) (50.0-75.0) % Lymph % (Auto) (20.0-40.0) % [place] % (Auto) (0.0-10.0) % Eos % (Auto) (0.0-4.0) % Baso % (Auto) (0.0-2.0) % Neut # (Auto) (1.8-7.0) K/uL Lymph # (Auto) (1.0-4.3) K/uL [place] # (Auto) (0.0-0.8) K/uL Eos # (Auto) (0.0-0.7) K/uL Baso # (Auto) (0.0-0.2) K/uL PT 12.2 (9.7-12.2) SECONDS INR 1.1 APTT 27 (21-34) SECONDS Sodium (132-148) mmol/L Potassium (3.6-5.2) mmol/L Chloride (98-107) mmol/L Carbon Dioxide (22-30) mmol/L Anion Gap (10-20) BUN (9-20) mg/dL Creatinine (0.8-1.5) mg/dL Est GFR ( Amer) Est GFR (Non-Af Amer) POC Glucose (mg/dL) (65-110) mg/dL Random Glucose (75-110) mg/dL Lactic Acid (0.7-2.1) mmol/L Calcium (8.6-10.4) mg/dl Phosphorus (2.5-4.5) mg/dL Magnesium (1.6-2.3) mg/dL Total Bilirubin (0.2-1.3) mg/dL AST (17-59) U/L ALT (21-72) U/L Alkaline Phosphatase (38-126) U/L Troponin I 2.0400 H* (0.00-0.120) ng/mL Total Protein (6.3-8.3) g/dL Albumin (3.5-5.0) g/dL Globulin (2.2-3.9) gm/dL Albumin/Globulin Ratio (1.0-2.1) Blood Type Antibody Screen 10/07/17 10/07/17 10/07/17 Range/Units 21:31 16:19 12:55 WBC (4.8-10.8) K/uL RBC (4.40-5.90) Mil/uL Hgb (12.0-18.0) g/dL Hct (35.0-51.0) % MCV (80.0-94.0) fL MCH (27.0-31.0) pg MCHC (33.0-37.0) g/dL RDW (11.5-14.5) % Plt Count (130-400) K/uL MPV (7.2-11.7) fL Neut % (Auto) (50.0-75.0) % Lymph % (Auto) (20.0-40.0) % Cherry % (Auto) (0.0-10.0) % Eos % (Auto) (0.0-4.0) % Baso % (Auto) (0.0-2.0) % Neut # (Auto) (1.8-7.0) K/uL Lymph # (Auto) (1.0-4.3) K/uL [place] # (Auto) (0.0-0.8) K/uL Eos # (Auto) (0.0-0.7) K/uL Baso # (Auto) (0.0-0.2) K/uL PT (9.7-12.2) SECONDS INR APTT (21-34) SECONDS Sodium (132-148) mmol/L Potassium (3.6-5.2) mmol/L Chloride (98-107) mmol/L Carbon Dioxide (22-30) mmol/L Anion Gap (10-20) BUN (9-20) mg/dL Creatinine (0.8-1.5) mg/dL Est GFR ( Amer) Est GFR (Non-Af Amer) POC Glucose (mg/dL) 285 H 277 H (65-110) mg/dL Random Glucose (75-110) mg/dL Lactic Acid (0.7-2.1) mmol/L Calcium (8.6-10.4) mg/dl Phosphorus (2.5-4.5) mg/dL Magnesium (1.6-2.3) mg/dL Total Bilirubin (0.2-1.3) mg/dL AST (17-59) U/L ALT (21-72) U/L Alkaline Phosphatase (38-126) U/L Troponin I (0.00-0.120) ng/mL Total Protein (6.3-8.3) g/dL Albumin (3.5-5.0) g/dL Globulin (2.2-3.9) gm/dL Albumin/Globulin Ratio (1.0-2.1) Blood Type B POSITIVE Antibody Screen Negative Laboratory Results - last 24 hr 10/07/17 10/07/17 10/07/17 12:55 16:19 21:31 WBC RBC Hgb Hct MCV MCH MCHC RDW Plt Count MPV Neut % (Auto) Lymph % (Auto) [place] % (Auto) Eos % (Auto) Baso % (Auto) Neut # (Auto) Lymph # (Auto) [place] # (Auto) Eos # (Auto) Baso # (Auto) PT INR APTT Sodium Potassium Chloride Carbon Dioxide Anion Gap BUN Creatinine Est GFR ( Amer) Est GFR (Non-Af Amer) POC Glucose (mg/dL) 277 H 285 H Random Glucose Lactic Acid Calcium Phosphorus Magnesium Total Bilirubin AST ALT Alkaline Phosphatase Troponin I Total Protein Albumin Globulin Albumin/Globulin Ratio Blood Type B POSITIVE Antibody Screen Negative 10/07/17 10/07/17 10/07/17 21:57 21:57 21:57 WBC 7.3 RBC 3.66 L Hgb 9.4 L Hct 28.5 L MCV 77.8 L MCH 25.7 L MCHC 33.1 RDW 16.3 H Plt Count 114 L MPV 9.1 Neut % (Auto) Lymph % (Auto) [place] % (Auto) Eos % (Auto) Baso % (Auto) Neut # (Auto) Lymph # (Auto) [place] # (Auto) Eos # (Auto) Baso # (Auto) PT 12.2 INR 1.1 APTT 27 Sodium Potassium Chloride Carbon Dioxide Anion Gap BUN Creatinine Est GFR ( Amer) Est GFR (Non-Af Amer) POC Glucose (mg/dL) Random Glucose Lactic Acid Calcium Phosphorus Magnesium Total Bilirubin AST ALT Alkaline Phosphatase Troponin I 2.0400 H* Total Protein Albumin Globulin Albumin/Globulin Ratio Blood Type Antibody Screen 10/07/17 10/08/17 10/08/17 21:57 05:28 05:28 WBC 7.1 RBC 3.35 L Hgb 8.8 L Hct 25.9 L MCV 77.3 L MCH 26.2 L MCHC 33.9 RDW 16.0 H Plt Count 98 L MPV 9.4 Neut % (Auto) 79.0 H Lymph % (Auto) 11.9 L Cherry % (Auto) 8.3 Eos % (Auto) 0.4 Baso % (Auto) 0.4 Neut # (Auto) 5.6 Lymph # (Auto) 0.8 L [place] # (Auto) 0.6 Eos # (Auto) 0.0 Baso # (Auto) 0.0 PT INR APTT Sodium Potassium Chloride Carbon Dioxide Anion Gap BUN Creatinine Est GFR ( Amer) Est GFR (Non-Af Amer) POC Glucose (mg/dL) Random Glucose Lactic Acid 2.7 H 1.3 Calcium Phosphorus Magnesium Total Bilirubin AST ALT Alkaline Phosphatase Troponin I Total Protein Albumin Globulin Albumin/Globulin Ratio Blood Type Antibody Screen 10/08/17 10/08/17 10/08/17 05:28 11:15 16:24 WBC RBC Hgb Hct MCV MCH MCHC RDW Plt Count MPV Neut % (Auto) Lymph % (Auto) [place] % (Auto) Eos % (Auto) Baso % (Auto) Neut # (Auto) Lymph # (Auto) [place] # (Auto) Eos # (Auto) Baso # (Auto) PT INR APTT Sodium 137 Potassium 5.0 Chloride 105 Carbon Dioxide 24 Anion Gap 13 BUN 28 H Creatinine 1.1 Est GFR ( Amer) > 60 Est GFR (Non-Af Amer) > 60 POC Glucose (mg/dL) 207 H 235 H Random Glucose 215 H Lactic Acid Calcium 8.2 L Phosphorus 3.3 Magnesium 1.4 L Total Bilirubin 1.0 AST 42 ALT 29 Alkaline Phosphatase 37 L Troponin I 4.5100 H* Total Protein 5.1 L Albumin 2.9 L Globulin 2.2 Albumin/Globulin Ratio 1.3 Blood Type Antibody Screen EKG/Cardiology Studies: Cardiology / EKG Studies 10/08/17 06:00 EKG [ELECTROCARDIOGRAM] Routine Comment: Mode Of Transportation: Reason For Exam: elevated troponin Critical Care Progress Note - Nutrition Nutrition: Nutrition Category Date Time Status Heart Healthy Diet [DIET] Diets 10/08/17 Dinner Active Assessment/Plan - Assessment and Plan (Free Text) Assessment: Patient seen and examined at bedside. 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 Patient being monitored in ICU for NSTEMI. -NSTEMI: s/p cardiac cath. BP remains stable with MAP >65, off pressors (off dopamine, off phenyephrine) -patient remains hemodynamically stable -d/c A-line -Anemia: monitor to keep hb/hct >10/30 -continue antiplatelets as per cardiology -right carotid endarterectomy dressing remains clean, monitor for bleeding -Bedside Massy swallow eval passed. -Patient able to tolerate oral diet. -As per family, patient's voice was not hoarse---family requested ENT follow up. -Patient remains hemodynamically stable. -as per cardiology, patient to be transferred to [place] for PCI. -Called [place] ICU, bed available today. -Patient remains chest pain free. d/w Dr. Johnston requested transfer to [place] on Wednesday. -continue to monitor.
[2017-10-08] MEDS: Docusate-Senna 50 mg-8.6 mg Tab PO SCH ×2 (14:00→17:53)
[2017-10-08] MEDS: Lactated Ringer's 1,000 ML IV SCH (17:59)
--- NOTE | 2017-10-08 20:08 | CP.PCM.CON ---
History of Present Illness - History of Present Illness History of Present Illness: 72 year old male with PMHx of CABG at [facility] ([place]), prostate CA (2013), DMII, HTN, HLD, iron deficiency anemia who is s/p R carotid endarterectomy. ICu consulted as patient's BP was low and patient was c/o chest pain. PAtient c/ o (+) nausea/vomtting. (+)dizziness. INtra-op patient received IV fentanyl, IV propofol and had ~[address] Reagan is the bat boy/girl who cleared patient for surgery. Allergies: NKDA PMHx: CABG (07/20), prostate CA (2013), DMII, HTN, HLD, iron deficiency anemia Psurg: CABG (07/20), prostatectomy (2013) Socialhx: denies tobacco, drank alcohol socially 20 years ago, denies drug use Home meds: not available Review of Systems - Review of Systems Review of Systems: see HPI Past Patient History - Infectious Disease Hx of Infectious Diseases: None - Past Medical History & Family History Past Medical History?: Yes - Past Social History Smoking Status: Former Smoker - CARDIAC Hx Cardiac Disorders: Yes (CAD) Hx Hypercholesterolemia: Yes Hx Hypertension: Yes Other/Comment: carotid stenosis - PULMONARY Hx Respiratory Disorders: Yes Hx Asthma: Yes Hx Chronic Obstructive Pulmonary Disease (COPD): Yes - NEUROLOGICAL Hx Neurological Disorder: No Hx Dizziness: Yes - HEENT Hx HEENT Problems: Yes Hx Cataracts: Yes (RIGHT) - RENAL Hx Chronic Kidney Disease: No - ENDOCRINE/METABOLIC Hx Endocrine Disorders: Yes Hx Diabetes Mellitus Type 2: Yes - HEMATOLOGICAL/ONCOLOGICAL Hx Blood Disorders: No - INTEGUMENTARY Hx Dermatological Problems: Yes (PIGMENT LOSS) - MUSCULOSKELETAL/RHEUMATOLOGICAL Hx Musculoskeletal Disorders: Yes Hx Falls: No Hx Osteoarthritis: Yes (KNEES) - GASTROINTESTINAL Hx Gastrointestinal Disorders: No - GENITOURINARY/GYNECOLOGICAL Hx Genitourinary Disorders: Yes Hx Prostate Problems: Yes - PSYCHIATRIC Hx Psychophysiologic Disorder: No Hx Substance Use: No - SURGICAL HISTORY Hx Surgeries: Yes Hx Cataract Extraction: Yes (RIGHT) Hx Cardiac Catheterization: Yes Hx Open Heart Surgery: Yes (1 year ago) Other/Comment: prostate sx - ANESTHESIA Hx Anesthesia: Yes Hx Anesthesia Reactions: No Hx Malignant Hyperthermia: No Has any member of the family had a problem w/ anesthesia?: No Meds Allergies/Adverse Reactions: Allergies Allergy/AdvReac Type Severity Reaction Status Date / Time No Known Allergies Allergy Verified 08/30/16 19:58 - Medications Medications: Current Medications Aspirin (Aspirin Chewable) 81 mg PO DAILY [facility] Last Admin: 10/08/17 12:23 Dose: 81 mg Clopidogrel Bisulfate (Plavix) 75 mg PO DAILY [facility] Last Admin: 10/08/17 12:22 Dose: 75 mg Ezetimibe (Zetia) 10 mg PO DAILY [facility] Last Admin: 10/08/17 12:22 Dose: 10 mg Heparin Sodium (Porcine) (Heparin) 5,000 units SC Q8 [facility] Last Admin: 10/08/17 14:00 Dose: Not Given Lactated Ringer's (Lactated Ringer's) 1,000 mls @ 50 mls/hr IV .Q20H [facility] Last Admin: 10/08/17 17:59 Dose: 50 mls/hr Insulin Human Regular (Novolin R) 0 unit SC ACHS [facility] PRN Reason: Protocol Last Admin: 10/08/17 17:52 Dose: 2 units Ondansetron HCl (Zofran Inj) 4 mg IVP Q6H PRN PRN Reason: Nausea/Vomiting Last Admin: 10/08/17 17:53 Dose: 4 mg Rosuvastatin Calcium (Crestor) 40 mg PO HS [facility] Last Admin: 10/07/17 23:00 Dose: 40 mg Senna/Docusate Sodium (Senokot S 50 Mg-8.6 Mg) 1 tab PO BID [facility] Last Admin: 10/08/17 17:53 Dose: 1 tab Physical Exam - Head Exam Head Exam: ATRAUMATIC Additional comments: right neck clean dressing - Eye Exam Eye Exam: Normal appearance, PERRL Pupil Exam: NORMAL ACCOMODATION - ENT Exam ENT Exam: Mucous Membranes Moist - Respiratory Exam Respiratory Exam: Clear to Auscultation Bilateral, NORMAL BREATHING PATTERN - Cardiovascular Exam Cardiovascular Exam: REGULAR RHYTHM, +S1, +S2, Systolic Murmur - GI/Abdominal Exam GI & Abdominal Exam: Normal Bowel Sounds, Soft - Extremities Exam Extremities exam: Positive for: normal inspection - Neurological Exam Neurological exam: Alert, Oriented x3 Results - Vital Signs Recent Vital Signs: Last Vital Signs Temp 97.5 F L 10/08/17 17:40 Pulse 89 10/08/17 19:00 Resp 15 10/08/17 19:00 BP 106/59 L 10/08/17 18:46 Pulse Ox 100 10/08/17 19:00 - Labs Result Diagrams: 10/08/17 05:28 10/08/17 05:28 Labs: Laboratory Results - last 24 hr 10/07/17 10/07/17 10/07/17 12:55 16:19 21:31 WBC RBC Hgb Hct MCV MCH MCHC RDW Plt Count MPV Neut % (Auto) Lymph % (Auto) [place] % (Auto) Eos % (Auto) Baso % (Auto) Neut # (Auto) Lymph # (Auto) [place] # (Auto) Eos # (Auto) Baso # (Auto) PT INR APTT Sodium Potassium Chloride Carbon Dioxide Anion Gap BUN Creatinine Est GFR ( Amer) Est GFR (Non-Af Amer) POC Glucose (mg/dL) 277 H 285 H Random Glucose Lactic Acid Calcium Phosphorus Magnesium Total Bilirubin AST ALT Alkaline Phosphatase Troponin I Total Protein Albumin Globulin Albumin/Globulin Ratio Blood Type B POSITIVE Antibody Screen Negative 10/07/17 10/07/17 10/07/17 21:57 21:57 21:57 WBC 7.3 RBC 3.66 L Hgb 9.4 L Hct 28.5 L MCV 77.8 L MCH 25.7 L MCHC 33.1 RDW 16.3 H Plt Count 114 L MPV 9.1 Neut % (Auto) Lymph % (Auto) [place] % (Auto) Eos % (Auto) Baso % (Auto) Neut # (Auto) Lymph # (Auto) [place] # (Auto) Eos # (Auto) Baso # (Auto) PT 12.2 INR 1.1 APTT 27 Sodium Potassium Chloride Carbon Dioxide Anion Gap BUN Creatinine Est GFR ( Amer) Est GFR (Non-Af Amer) POC Glucose (mg/dL) Random Glucose Lactic Acid Calcium Phosphorus Magnesium Total Bilirubin AST ALT Alkaline Phosphatase Troponin I 2.0400 H* Total Protein Albumin Globulin Albumin/Globulin Ratio Blood Type Antibody Screen 10/07/17 10/08/17 10/08/17 21:57 05:28 05:28 WBC 7.1 RBC 3.35 L Hgb 8.8 L Hct 25.9 L MCV 77.3 L MCH 26.2 L MCHC 33.9 RDW 16.0 H Plt Count 98 L MPV 9.4 Neut % (Auto) 79.0 H Lymph % (Auto) 11.9 L [place] % (Auto) 8.3 Eos % (Auto) 0.4 Baso % (Auto) 0.4 Neut # (Auto) 5.6 Lymph # (Auto) 0.8 L [place] # (Auto) 0.6 Eos # (Auto) 0.0 Baso # (Auto) 0.0 PT INR APTT Sodium Potassium Chloride Carbon Dioxide Anion Gap BUN Creatinine Est GFR ( Amer) Est GFR (Non-Af Amer) POC Glucose (mg/dL) Random Glucose Lactic Acid 2.7 H 1.3 Calcium Phosphorus Magnesium Total Bilirubin AST ALT Alkaline Phosphatase Troponin I Total Protein Albumin Globulin Albumin/Globulin Ratio Blood Type Antibody Screen 10/08/17 10/08/17 10/08/17 05:28 11:15 16:24 WBC RBC Hgb Hct MCV MCH MCHC RDW Plt Count MPV Neut % (Auto) Lymph % (Auto) [place] % (Auto) Eos % (Auto) Baso % (Auto) Neut # (Auto) Lymph # (Auto) [place] # (Auto) Eos # (Auto) Baso # (Auto) PT INR APTT Sodium 137 Potassium 5.0 Chloride 105 Carbon Dioxide 24 Anion Gap 13 BUN 28 H Creatinine 1.1 Est GFR ( Amer) > 60 Est GFR (Non-Af Amer) > 60 POC Glucose (mg/dL) 207 H 235 H Random Glucose 215 H Lactic Acid Calcium 8.2 L Phosphorus 3.3 Magnesium 1.4 L Total Bilirubin 1.0 AST 42 ALT 29 Alkaline Phosphatase 37 L Troponin I 4.5100 H* Total Protein 5.1 L Albumin 2.9 L Globulin 2.2 Albumin/Globulin Ratio 1.3 Blood Type Antibody Screen Assessment & Plan - Assessment and Plan (Free Text) Assessment: -Hypotension/chest pain post procedure: check lactic, trop q8hrs, ekg, hb/hct and echo -EKG reveals, T wave changes in lateral leads -requested cardiology input -obtain echo -keep hb/hct >10/30, check fecal occult blood, irone profile, folate/b12 -start antiplatelets if surgery ascertains hemostasis and monitor for bleeding -Patient will benefit from ICu level care -titrate off pressors and infuse IVF -monitor urine output -d/w Dr. Malin, no type B+ blood available, will infuse O+ blood to increase oxygen carrying capacity. -keep NPO for anticipated intervention. -Dr. Johnston for cardiology consult -BGM q6hrs, ISS aspart -delayed documentation - Date & Time Date: 10/07/17 Time: 19:00
[2017-10-08] MEDS: Magnesium Sulfate 1 gm in D5W 1 GM/100 ML BAG IVPB SCH ×2 (21:30→22:30)
[2017-10-08] MEDS: Pantoprazole 40 mg EC Tab PO SCH (21:40)
[2017-10-08 22:38] LABS: BASO % 0.3 % (0.0-2.0); EOS # 0.1 K/uL (0.0-0.7); EOS % 2.1 % (0.0-4.0); LYMPH # 0.7 K/uL (1.0-4.3); LYMPH % 12.9 % (20.0-40.0); MEAN CELL VOLUME 78.3 fL (80.0-94.0); MEAN CORPUSCULAR HEMOGLOBIN 26.7 pg (27.0-31.0); MEAN PLATELET VOLUME 9.2 fL (7.2-11.7); MONO # 0.5 K/uL (0.0-0.8); MONO % 8.8 % (0.0-10.0); NEUT # 4.1 K/uL (1.8-7.0); NEUT % 75.9 % (50.0-75.0); RBC 4.11 Mil/uL (4.40-5.90); RED CELL DISTRIBUTION WIDTH 16.9 % (11.5-14.5); WHITE BLOOD COUNT 5.4 K/uL (4.8-10.8)
--- NOTE | 2017-10-08 23:12 | CP.PCM.PN ---
Subjective - Date & Time of Evaluation Date of Evaluation: 10/08/17 Time of Evaluation: 12:10 - Subjective Subjective: Patient s/p cath OM 99% stenosis For PCI on Wednesday in [place] Objective - Vital Signs/Intake and Output Vital Signs (last 24 hours): Temp Pulse Resp BP Pulse Ox 97.5 F L 89 15 106/59 L 100 10/08/17 17:40 10/08/17 19:00 10/08/17 19:00 10/08/17 18:46 10/08/17 19:00 Intake and Output: 10/08/17 10/09/17 18:59 06:59 Intake Total 775 50 Output Total 1100 Balance 775 -1050 - Medications Medications: Current Medications Aspirin (Aspirin Chewable) 81 mg PO DAILY [facility] Last Admin: 10/08/17 12:23 Dose: 81 mg Clopidogrel Bisulfate (Plavix) 75 mg PO DAILY [facility] Last Admin: 10/08/17 12:22 Dose: 75 mg Ezetimibe (Zetia) 10 mg PO DAILY [facility] Last Admin: 10/08/17 12:22 Dose: 10 mg Heparin Sodium (Porcine) (Heparin) 5,000 units SC Q8 [facility] Last Admin: 10/08/17 21:40 Dose: 5,000 units Lactated Ringer's (Lactated Ringer's) 1,000 mls @ 50 mls/hr IV .Q20H [facility] Last Admin: 10/08/17 17:59 Dose: 50 mls/hr Insulin Human Regular (Novolin R) 0 unit SC ACHS [facility] PRN Reason: Protocol Last Admin: 10/08/17 22:00 Dose: Not Given Ondansetron HCl (Zofran Inj) 4 mg IVP Q6H PRN PRN Reason: Nausea/Vomiting Last Admin: 10/08/17 17:53 Dose: 4 mg Pantoprazole Sodium (Protonix Ec Tab) 40 mg PO DAILY [facility] Last Admin: 10/08/17 21:40 Dose: 40 mg Rosuvastatin Calcium (Crestor) 40 mg PO HS [facility] Last Admin: 10/08/17 21:40 Dose: 40 mg Senna/Docusate Sodium (Senokot S 50 Mg-8.6 Mg) 1 tab PO BID [facility] Last Admin: 10/08/17 17:53 Dose: 1 tab - Labs Labs: 10/08/17 22:29 10/08/17 05:28 PT 12.2 SECONDS (9.7-12.2) 10/07/17 21:57 INR 1.1 10/07/17 21:57 APTT 27 SECONDS (21-34) 10/07/17 21:57
[2017-10-08 23:15] LABS: IRON 113 ug/dL (49-181)
[2017-10-08 23:24] LABS: % IRON SATURATION 31 (20-55); TOTAL IRON BINDING CAPACITY 360 ug/dL (250-450)
[2017-10-09] MEDS: Lactated Ringer's 1,000 ML IV SCH ×3 (03:00→22:31)
[2017-10-09 06:22] LABS: BASO % 0.4 % (0.0-2.0); EOS # 0.1 K/uL (0.0-0.7); EOS % 2.1 % (0.0-4.0); HEMOGLOBIN 10.9 g/dL (12.0-18.0); LYMPH # 0.7 K/uL (1.0-4.3); MEAN CELL VOLUME 79.3 fL (80.0-94.0); MEAN CORPUSCULAR HEMOGLOBIN 27.2 pg (27.0-31.0); MEAN CORPUSCULAR HGB CONC 34.3 g/dL (33.0-37.0); MEAN PLATELET VOLUME 9.6 fL (7.2-11.7); MONO # 0.5 K/uL (0.0-0.8); MONO % 10.2 % (0.0-10.0); NEUT # 3.8 K/uL (1.8-7.0); NEUT % 73.3 % (50.0-75.0); RED CELL DISTRIBUTION WIDTH 16.6 % (11.5-14.5); WHITE BLOOD COUNT 5.2 K/uL (4.8-10.8)
[2017-10-09 06:33] LABS: ALB/GLOB RATIO 1.3 (1.0-2.1); ALT/SGPT 27 U/L (21-72); AST/SGOT 31 U/L (17-59); BLOOD UREA NITROGEN 21 mg/dL (9-20); CALCIUM 7.4 mg/dl (8.6-10.4); GFR AFRICAN-AMERICAN > 60; GFR NON-AFRICAN AMERICAN > 60
[2017-10-09 07:08] LABS: FERRITIN 22.3 ng/mL
[2017-10-09 07:39] LABS: FOLATE 12.9 ng/mL
[2017-10-09] MEDS: (Novolin R) Insulin Human Regular 100 units/ml vial SC SCH ×4 (08:00→21:48)
--- NOTE | 2017-10-09 08:24 | CP.PCM.PN ---
Subjective - Date & Time of Evaluation Date of Evaluation: 10/09/17 Time of Evaluation: 07:00 - Subjective Subjective: Vascular Surgery Progress Note for Dr. Malin 72M seen and evaluated this AM. No acute events overnight. Tenderness and pain over the incisional site. C/o hoarseness. Otherwise patient is doing well. Denies f/c, n/v/d, SOB, CP, or urinary symptoms. Objective - Vital Signs/Intake and Output Vital Signs (last 24 hours): Temp Pulse Resp BP Pulse Ox 99.3 F 92 H 14 121/63 94 L 10/09/17 04:00 10/09/17 07:01 10/09/17 07:01 10/09/17 07:01 10/09/17 07:01 Intake and Output: 10/09/17 10/09/17 06:59 18:59 Intake Total 820 50 Output Total 2100 Balance -1280 50 - Medications Medications: Current Medications Aspirin (Aspirin Chewable) 81 mg PO DAILY [facility] Last Admin: 10/08/17 12:23 Dose: 81 mg Clopidogrel Bisulfate (Plavix) 75 mg PO DAILY [facility] Last Admin: 10/08/17 12:22 Dose: 75 mg Ezetimibe (Zetia) 10 mg PO DAILY [facility] Last Admin: 10/08/17 12:22 Dose: 10 mg Heparin Sodium (Porcine) (Heparin) 5,000 units SC Q8 [facility] Last Admin: 10/09/17 06:35 Dose: 5,000 units Lactated Ringer's (Lactated Ringer's) 1,000 mls @ 50 mls/hr IV .Q20H [facility] Last Admin: 10/09/17 03:00 Dose: Not Given Insulin Human Regular (Novolin R) 0 unit SC ACHS [facility] PRN Reason: Protocol Last Admin: 10/08/17 22:00 Dose: Not Given Ondansetron HCl (Zofran Inj) 4 mg IVP Q6H PRN PRN Reason: Nausea/Vomiting Last Admin: 10/08/17 23:35 Dose: 4 mg Pantoprazole Sodium (Protonix Ec Tab) 40 mg PO DAILY [facility] Last Admin: 10/08/17 21:40 Dose: 40 mg Rosuvastatin Calcium (Crestor) 40 mg PO HS [facility] Last Admin: 10/08/17 21:40 Dose: 40 mg Senna/Docusate Sodium (Senokot S 50 Mg-8.6 Mg) 1 tab PO BID [facility] Last Admin: 10/08/17 17:53 Dose: 1 tab - Labs Labs: 10/09/17 06:14 10/09/17 06:14 PT 12.2 SECONDS (9.7-12.2) 10/07/17 21:57 INR 1.1 10/07/17 21:57 APTT 27 SECONDS (21-34) 10/07/17 21:57 - Constitutional Appears: Well - Head Exam Head Exam: ATRAUMATIC, NORMAL INSPECTION, NORMOCEPHALIC - Eye Exam Eye Exam: EOMI, Normal appearance - ENT Exam ENT Exam: Mucous Membranes Moist, Normal External Ear Exam - Neck Exam Neck Exam: Tenderness Additional comments: Tenderness to palpation on right surgical site. Dressing c/d/i. - Respiratory Exam Respiratory Exam: Clear to Ausculation Bilateral, NORMAL BREATHING PATTERN - Cardiovascular Exam Cardiovascular Exam: REGULAR RHYTHM, +S1, +S2. absent: Murmur - GI/Abdominal Exam GI & Abdominal Exam: Soft, Normal Bowel Sounds. absent: Tenderness - Neurological Exam Neurological Exam: Alert, Awake - Skin Skin Exam: Dry, Intact, Normal Color, Warm Assessment and Plan - Assessment and Plan (Free Text) Assessment: 72M s/p R CEA complicated by post-op [place] Plan: f/u with cardio recs - PCI Wednesday at [place] per Dr. Johnston monitor h/h - transfuse as needed monitor surgical incision site further recs per Dr. Kimo Aburto PGY1
[2017-10-09] MEDS: Pantoprazole 40 mg EC Tab PO SCH (09:29)
[2017-10-09] MEDS: Docusate-Senna 50 mg-8.6 mg Tab PO SCH ×2 (10:00→17:30)
--- NOTE | 2017-10-09 10:36 | CP.PCM.PN ---
Subjective - Date & Time of Evaluation Date of Evaluation: 10/09/17 Time of Evaluation: 10:33 - Subjective Subjective: Patient feeling better. Still hoarse, PAtient wishes to go home. no bleeding from wound site Objective - Vital Signs/Intake and Output Vital Signs (last 24 hours): Temp Pulse Resp BP Pulse Ox 98.6 F 88 13 129/63 100 10/09/17 08:00 10/09/17 08:01 10/09/17 08:01 10/09/17 08:00 10/09/17 08:01 Intake and Output: 10/09/17 10/09/17 06:59 18:59 Intake Total 820 150 Output Total 2100 Balance -1280 150 - Medications Medications: Current Medications Aspirin (Aspirin Chewable) 81 mg PO DAILY [facility] Last Admin: 10/09/17 09:29 Dose: 81 mg Clopidogrel Bisulfate (Plavix) 75 mg PO DAILY [facility] Last Admin: 10/09/17 09:29 Dose: 75 mg Ezetimibe (Zetia) 10 mg PO DAILY [facility] Last Admin: 10/09/17 09:31 Dose: 10 mg Heparin Sodium (Porcine) (Heparin) 5,000 units SC Q8 [facility] Last Admin: 10/09/17 06:35 Dose: 5,000 units Lactated Ringer's (Lactated Ringer's) 1,000 mls @ 50 mls/hr IV .Q20H [facility] Last Admin: 10/09/17 03:00 Dose: Not Given Insulin Human Regular (Novolin R) 0 unit SC ACHS [facility] PRN Reason: Protocol Last Admin: 10/09/17 08:00 Dose: 1 units Ondansetron HCl (Zofran Inj) 4 mg IVP Q6H PRN PRN Reason: Nausea/Vomiting Last Admin: 10/08/17 23:35 Dose: 4 mg Pantoprazole Sodium (Protonix Ec Tab) 40 mg PO DAILY [facility] Last Admin: 10/09/17 09:29 Dose: 40 mg Rosuvastatin Calcium (Crestor) 40 mg PO HS [facility] Last Admin: 10/08/17 21:40 Dose: 40 mg Senna/Docusate Sodium (Senokot S 50 Mg-8.6 Mg) 1 tab PO BID [facility] Last Admin: 10/08/17 17:53 Dose: 1 tab - Labs Labs: 10/09/17 06:14 10/09/17 06:14 PT 12.2 SECONDS (9.7-12.2) 10/07/17 21:57 INR 1.1 10/07/17 21:57 APTT 27 SECONDS (21-34) 10/07/17 21:57 - Constitutional Appears: Well, No Acute Distress - Head Exam Head Exam: NORMAL INSPECTION - Neck Exam Additional comments: right wound site clean dressing - Respiratory Exam Respiratory Exam: NORMAL BREATHING PATTERN - Cardiovascular Exam Cardiovascular Exam: REGULAR RHYTHM, +S1, +S2 - GI/Abdominal Exam GI & Abdominal Exam: Normal Bowel Sounds - Neurological Exam Neurological Exam: Alert, Awake, CN II-XII Intact, Oriented x3 - Skin Skin Exam: Normal Color Assessment and Plan - Assessment and Plan (Free Text) Assessment: 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 Patient being monitored in ICU for NSTEMI. -NSTEMI:continue treatment as per cardiology -Anemia: monitor to keep hb/hct >10/30 -continue antiplatelets as per cardiology -right carotid endarterectomy dressing remains clean, monitor for bleeding -Patient remains hemodynamically stable. -PT/OT oob to chair.
--- NOTE | 2017-10-09 19:47 | CARDCATH ---
PROCEDURE DATE: 10/08/2017 PROCEDURES: 1. Left heart catheterization. 2. Coronary angiogram. 3. Saphenous vein graft angiogram. 4. Left internal mammary artery angiogram. CLINICAL INDICATIONS: 1. Chest pain. 2. Non-ST elevation myocardial infarction. 3. History of coronary artery disease status post CABG. 4. Hypotension. 5. Diabetes. 6. Hyperlipidemia. 7. Carotid artery stenosis status post carotid artery endarterectomy. REFERRING PHYSICIANS: 1. Shane Mauro MD 2. Rio Malin Jr., MD BRIEF CLINICAL HISTORY: Hernesto Pichardo is a 72-year-old gentleman status post right carotid artery endarterectomy. The patient developed chest pain post surgery. The patient also became hypotensive. Subsequent workup has revealed the patient has sustained non-ST elevation myocardial infarction. After informed consent, the patient was brought to the photofinishing laboratory worker for cardiac catheterization. The patient was prepped and draped in the usual sterile fashion. Lidocaine 2% was given in the right groin for local anesthesia. Using micropuncture technique, a 6-Icelandic sheath was introduced into right common femoral artery. A JL4 6-Icelandic diagnostic catheter engaged into left main coronary artery. Contrast was injected and left coronary angiogram was done. Then, nonselective right coronary angiogram was performed. Then, JR4 6-Icelandic diagnostic catheter crossed into left ventricle. LV and diastolic pressure measured. Contrast injected and LV angiogram was done. The catheter was pulled back across the aortic valve. Gradient across aortic valve was measured. Using multipurpose catheter, saphenous vein graft angiogram and right coronary artery angiogram was done. Then, using the LONG catheter, left internal mammary graft angiogram was then done. Contrast was performed. The patient tolerated the procedure well. FINDINGS: 1. Left main coronary artery is patent. 2. Proximal LAD has a 90% stenosis. Mid LAD has a 100% stenosis. 3. Left circumflex coronary artery is patent; however, large obtuse marginal branch has a 95 to 99% proximal stenosis. 4. Right coronary artery is totally occluded. 5. Saphenous vein graft to right coronary artery is patent. 6. LONG graft to left anterior descending coronary artery is patent. 7. No additional grafts are found. 8. Ischemic Dilated Cardiomyopathy with EF of 30%. Severe apical hypokinesis, EDP 22 IMPRESSION: 1. Non-ST elevation myocardial infarction. 2. Saphenous vein graft to right coronary artery and left internal mammary artery graft to left anterior descending are patent. 3. Critical stenosis in the obtuse marginal 1 artery. 4. Ischemic Dilated Cardiomyopathy with EF of 30%. Severe apical hypokinesis, EDP 22 PLAN: The patient will be transferred to [facility] ICU for further management. After further workup, the patient will be transferred to [place] for coronary intervention. Recommend [facility] evaluation Adolfo Johnston MD MTDD
--- NOTE | 2017-10-09 22:01 | CARD ---
APPROVED REPORT EXAM: Two-dimensional and M-mode echocardiogram with Doppler and color Doppler. Other Information Quality : GoodRhythm : INDICATION Cardiac Disease: CAD LV Function:Systolic Mitral Valve Disease Congestive Heart Failure RISK FACTORS Hypertension Diabetes 2D DIMENSIONS IVSd0.9 (0.7-1.1cm)LVDd4.0 (3.9-5.9cm) PWd1.0 (0.7-1.1cm)LVDs2.6 (2.5-4.0cm) M-Mode DIMENSIONS Left Atrium (MM)3.68 (2.5-4.0cm)IVSd0.94 (0.7-1.1cm) Aortic Root3.05 (2.2-3.7cm)LVDd4.05 (4.0-5.6cm) Aortic Cusp Exc.1.76 (1.5-2.0cm)PWd0.83 (0.7-1.1cm) LVDs2.76 (2.0-3.8cm) Mitral Valve MV E Mhpomzrf66.6cm/sMV A Kdmdqmwy887.5cm/sE/A ratio0.7 TDI E/Lateral E'0.0E/Medial E'0.0 Tricuspid Valve TR Peak [id number]/sTR Peak Gr.[id number] LEFT VENTRICLE The left ventricle is normal size. There is normal left ventricular wall thickness. Left ventricle systolic function is moderately impaired. Biplane Ejection Fraction is - 43% There is moderate hypokinesis in the mid-anteroseptal / anteroapical wal compatible with coronary heart disease.l. Transmitral Doppler flow pattern is Grade I-abnormal relaxation pattern. RIGHT VENTRICLE The right ventricle is normal size. The right ventricular systolic function is normal. ATRIA The left atrium is mildly dilated. The right atrium size is normal. AORTIC VALVE The aortic valve is mildly calcified but opens well. There is trace to mild aortic regurgitation. There is no aortic valvular stenosis. MITRAL VALVE The mitral valve is normal in structure. Mitral regurgitation is trace. TRICUSPID VALVE The tricuspid valve is normal in structure. There is moderate tricuspid regurgitation. Right ventricular systolic pressure is estimated at - 47 mmHg. There is moderate pulmonary hypertension. PULMONIC VALVE The pulmonary valve is normal in structure. There is trace pulmonic valvular regurgitation. GREAT VESSELS The aortic root is normal in size. The aortic root displays mild sclerocalcific changes. The IVC is normal in size and collapses >50% with inspiration. PERICARDIAL EFFUSION There is no pericardial effusion. <Conclusion> Left ventricle systolic function is moderately impaired. Biplane Ejection Fraction is - 43% There is moderate hypokinesis in the mid-anteroseptal / anteroapical wal compatible with coronary heart disease. Transmitral Doppler flow pattern is Grade I-abnormal relaxation pattern. The right ventricular systolic function is normal. There is trace to mild aortic regurgitation. Insignificant mitral and pulmonic regurgitation. There is moderate tricuspid regurgitation. Right ventricular systolic pressure is estimated at - 47 mmHg compatible with moderate pulmonary hypertension. There is no pericardial effusion.
--- NOTE | 2017-10-09 23:06 | CP.PCM.PN ---
Subjective - Date & Time of Evaluation Date of Evaluation: 10/09/17 Time of Evaluation: 17:10 - Subjective Subjective: Patient seen and evaluated Remains chest pain free Non ST elevation [place] Anemia: Stool guiac still pending F/U Hgb Likely PCI on Wednesday [facility] negative Objective - Vital Signs/Intake and Output Vital Signs (last 24 hours): Temp Pulse Resp BP Pulse Ox 98.3 F 79 18 129/62 100 10/09/17 20:00 10/09/17 20:00 10/09/17 20:00 10/09/17 20:00 10/09/17 20:00 Intake and Output: 10/09/17 10/10/17 18:59 06:59 Intake Total 300 Output Total 1550 675 Balance -1250 -675 - Medications Medications: Current Medications Aspirin (Aspirin Chewable) 81 mg PO DAILY [facility] Last Admin: 10/09/17 09:29 Dose: 81 mg Clopidogrel Bisulfate (Plavix) 75 mg PO DAILY [facility] Last Admin: 10/09/17 09:29 Dose: 75 mg Ezetimibe (Zetia) 10 mg PO DAILY [facility] Last Admin: 10/09/17 09:31 Dose: 10 mg Heparin Sodium (Porcine) (Heparin) 5,000 units SC Q8 [facility] Last Admin: 10/09/17 21:48 Dose: 5,000 units Lactated Ringer's (Lactated Ringer's) 1,000 mls @ 50 mls/hr IV .Q20H [facility] Last Admin: 10/09/17 17:33 Dose: 50 mls/hr Insulin Human Regular (Novolin R) 0 unit SC ACHS [facility] PRN Reason: Protocol Last Admin: 10/09/17 21:48 Dose: Not Given Ondansetron HCl (Zofran Inj) 4 mg IVP Q6H PRN PRN Reason: Nausea/Vomiting Last Admin: 10/08/17 23:35 Dose: 4 mg Pantoprazole Sodium (Protonix Ec Tab) 40 mg PO DAILY [facility] Last Admin: 10/09/17 09:29 Dose: 40 mg Rosuvastatin Calcium (Crestor) 40 mg PO HS [facility] Last Admin: 10/09/17 21:49 Dose: 40 mg Senna/Docusate Sodium (Senokot S 50 Mg-8.6 Mg) 1 tab PO BID [facility] Last Admin: 10/09/17 17:30 Dose: 1 tab - Labs Labs: 10/09/17 06:14 10/09/17 06:14 PT 12.2 SECONDS (9.7-12.2) 10/07/17 21:57 INR 1.1 10/07/17 21:57 APTT 27 SECONDS (21-34) 10/07/17 21:57
--- NOTE | 2017-10-10 00:18 | OP ---
PROCEDURE DATE: 10/09/2017 PREOPERATIVE DIAGNOSIS: Hoarseness. POSTOPERATIVE DIAGNOSIS: Hoarseness. REQUESTING PHYSICIAN: ICU doctor. PROCEDURE: Flexible bronchoscopy. DESCRIPTION OF PROCEDURE: The patient was placed in supine position. Nose was decongested using Afrin. Flexible laryngoscope was inserted through the right nasal cavity, passed through the nasopharynx, then oropharynx and hypopharynx. The pharyngeal stapleton, base of tongue, vallecula, epiglottis, AE folds, false cords, true cords, arytenoids, pyriform sinuses were brought into view, and the left vocal cord is moving; however, the right vocal cord is not moving. There is redness of the right vocal cord with edema and erythema of the arytenoid on the right side. The scope was removed. The patient tolerated the procedure well. Dl Padilla MD
[2017-10-10 06:36] LABS: BASO % 0.5 % (0.0-2.0); EOS # 0.3 K/uL (0.0-0.7); EOS % 4.9 % (0.0-4.0); HEMOGLOBIN 10.3 g/dL (12.0-18.0); LYMPH # 1.1 K/uL (1.0-4.3); LYMPH % 19.2 % (20.0-40.0); MEAN CELL VOLUME 78.8 fL (80.0-94.0); MEAN CORPUSCULAR HEMOGLOBIN 26.2 pg (27.0-31.0); MEAN CORPUSCULAR HGB CONC 33.2 g/dL (33.0-37.0); MEAN PLATELET VOLUME 9.2 fL (7.2-11.7); MONO # 0.8 K/uL (0.0-0.8); MONO % 14.7 % (0.0-10.0); NEUT # 3.4 K/uL (1.8-7.0); NEUT % 60.7 % (50.0-75.0); NRBC % 0.1 % (0.0-2.0); RBC 3.95 Mil/uL (4.40-5.90); RED CELL DISTRIBUTION WIDTH 16.5 % (11.5-14.5); WHITE BLOOD COUNT 5.5 K/uL (4.8-10.8)
--- NOTE | 2017-10-10 07:32 | CP.PCM.PN ---
Subjective - Date & Time of Evaluation Date of Evaluation: 10/10/17 Time of Evaluation: 07:29 - Subjective Subjective: Vascular Surgery progress note for Dr. Malin Pt seen and examined this AM At bedside no acute events overnight per nursing. I discussed with the pt the plan for PCI at [place] tomorrow however he seemed unaware of this plan. No new complaints a this time. Objective - Vital Signs/Intake and Output Vital Signs (last 24 hours): Temp Pulse Resp BP Pulse Ox 98.5 F 79 17 128/54 L 99 10/10/17 00:00 10/10/17 00:00 10/10/17 00:00 10/10/17 00:00 10/10/17 00:00 Intake and Output: 10/10/17 10/10/17 06:59 18:59 Intake Total 670 50 Output Total 1525 Balance -855 50 - Medications Medications: Current Medications Aspirin (Aspirin Chewable) 81 mg PO DAILY [facility] Last Admin: 10/09/17 09:29 Dose: 81 mg Clopidogrel Bisulfate (Plavix) 75 mg PO DAILY [facility] Last Admin: 10/09/17 09:29 Dose: 75 mg Ezetimibe (Zetia) 10 mg PO DAILY [facility] Last Admin: 10/09/17 09:31 Dose: 10 mg Heparin Sodium (Porcine) (Heparin) 5,000 units SC Q8 [facility] Last Admin: 10/10/17 05:52 Dose: 5,000 units Lactated Ringer's (Lactated Ringer's) 1,000 mls @ 50 mls/hr IV .Q20H [facility] Last Admin: 10/09/17 22:31 Dose: 50 mls/hr Insulin Human Regular (Novolin R) 0 unit SC ACHS [facility] PRN Reason: Protocol Last Admin: 10/09/17 21:48 Dose: Not Given Ondansetron HCl (Zofran Inj) 4 mg IVP Q6H PRN PRN Reason: Nausea/Vomiting Last Admin: 10/08/17 23:35 Dose: 4 mg Pantoprazole Sodium (Protonix Ec Tab) 40 mg PO DAILY [facility] Last Admin: 10/09/17 09:29 Dose: 40 mg Rosuvastatin Calcium (Crestor) 40 mg PO HS [facility] Last Admin: 10/09/17 21:49 Dose: 40 mg Senna/Docusate Sodium (Senokot S 50 Mg-8.6 Mg) 1 tab PO BID [facility] Last Admin: 10/09/17 17:30 Dose: 1 tab - Labs Labs: 10/10/17 06:15 10/09/17 06:14 PT 12.2 SECONDS (9.7-12.2) 10/07/17 21:57 INR 1.1 10/07/17 21:57 APTT 27 SECONDS (21-34) 10/07/17 21:57 - Constitutional Appears: Non-toxic, No Acute Distress - Head Exam Head Exam: ATRAUMATIC, NORMOCEPHALIC - Eye Exam Eye Exam: EOMI - ENT Exam ENT Exam: Mucous Membranes Moist - Neck Exam Additional comments: Neck dressing clean dry and intact no hematoma non tender - Respiratory Exam Respiratory Exam: NORMAL BREATHING PATTERN - Cardiovascular Exam Cardiovascular Exam: +S1, +S2 - GI/Abdominal Exam GI & Abdominal Exam: Soft. absent: Distended, Firm, Guarding, Rigid, Tenderness - Neurological Exam Neurological Exam: Alert, Awake - Psychiatric Exam Psychiatric exam: Normal Affect, Normal Mood - Skin Skin Exam: Dry, Intact Assessment and Plan - Assessment and Plan (Free Text) Assessment: 72M s/p R CEA complicated by post-op [place] Plan: f/u with cardio recs - PCI Wednesday at [place] per Dr. Johnston Continue ICU managment monitor surgical incision site further recs per Dr. Kimo Rodriguez PGY3
[2017-10-10] MEDS: (Novolin R) Insulin Human Regular 100 units/ml vial SC SCH ×4 (08:05→22:00)
[2017-10-10] MEDS: Pantoprazole 40 mg EC Tab PO SCH (09:54)
[2017-10-10] MEDS: Docusate-Senna 50 mg-8.6 mg Tab PO SCH ×2 (09:54→17:54)
[2017-10-10 18:41] LABS: BLOOD UREA NITROGEN 22 mg/dL (9-20); CALCIUM 8.6 mg/dl (8.6-10.4); GFR AFRICAN-AMERICAN > 60; GFR NON-AFRICAN AMERICAN > 60
--- NOTE | 2017-10-10 21:38 | CP.PCM.PN ---
Subjective - Date & Time of Evaluation Date of Evaluation: 10/10/17 Time of Evaluation: 17:40 - Subjective Subjective: Patient seen and evaluated Denies chest pain and dyspnea For PCI tomorrow at [place] Objective - Vital Signs/Intake and Output Vital Signs (last 24 hours): Temp Pulse Resp BP Pulse Ox 98.1 F 81 18 130/87 100 10/10/17 20:00 10/10/17 20:00 10/10/17 20:00 10/10/17 20:00 10/10/17 20:00 Intake and Output: 10/10/17 10/11/17 18:59 06:59 Intake Total 1250 Output Total 1450 Balance -200 - Medications Medications: Current Medications Aspirin (Aspirin Chewable) 81 mg PO DAILY [facility] Last Admin: 10/10/17 09:53 Dose: 81 mg Clopidogrel Bisulfate (Plavix) 75 mg PO DAILY [facility] Last Admin: 10/10/17 09:54 Dose: 75 mg Ezetimibe (Zetia) 10 mg PO DAILY [facility] Last Admin: 10/10/17 09:59 Dose: 10 mg Heparin Sodium (Porcine) (Heparin) 5,000 units SC Q8 [facility] Last Admin: 10/10/17 14:55 Dose: 5,000 units Insulin Human Regular (Novolin R) 0 unit SC ACHS [facility] PRN Reason: Protocol Last Admin: 10/10/17 17:56 Dose: 3 units Ondansetron HCl (Zofran Inj) 4 mg IVP Q6H PRN PRN Reason: Nausea/Vomiting Last Admin: 10/08/17 23:35 Dose: 4 mg Pantoprazole Sodium (Protonix Ec Tab) 40 mg PO DAILY [facility] Last Admin: 10/10/17 09:54 Dose: 40 mg Rosuvastatin Calcium (Crestor) 40 mg PO HS [facility] Last Admin: 10/09/17 21:49 Dose: 40 mg Senna/Docusate Sodium (Senokot S 50 Mg-8.6 Mg) 1 tab PO BID [facility] Last Admin: 10/10/17 17:54 Dose: 1 tab - Labs Labs: 10/10/17 06:15 10/10/17 18:20 PT 12.2 SECONDS (9.7-12.2) 10/07/17 21:57 INR 1.1 10/07/17 21:57 APTT 27 SECONDS (21-34) 10/07/17 21:57
--- NOTE | 2017-10-10 21:47 | CARD ---
APPROVED REPORT EKG Measurement Heart [id number] KS [id number] <Conclusion> Normal sinus rhythm with sinus arrhythmia T wave abnormality, consider lateral ischemia Prolonged QT Abnormal ECG
[2017-10-11 06:24] LABS: BASO % 0.8 % (0.0-2.0); EOS # 0.4 K/uL (0.0-0.7); EOS % 6.7 % (0.0-4.0); HEMOGLOBIN 12.4 g/dL (12.0-18.0); LYMPH # 1.1 K/uL (1.0-4.3); LYMPH % 19.8 % (20.0-40.0); MEAN CELL VOLUME 79.1 fL (80.0-94.0); MEAN CORPUSCULAR HEMOGLOBIN 26.6 pg (27.0-31.0); MEAN CORPUSCULAR HGB CONC 33.6 g/dL (33.0-37.0); MEAN PLATELET VOLUME 8.9 fL (7.2-11.7); MONO # 0.6 K/uL (0.0-0.8); MONO % 10.9 % (0.0-10.0); NEUT # 3.5 K/uL (1.8-7.0); NEUT % 61.8 % (50.0-75.0); RBC 4.68 Mil/uL (4.40-5.90); RED CELL DISTRIBUTION WIDTH 16.5 % (11.5-14.5); WHITE BLOOD COUNT 5.7 K/uL (4.8-10.8)
[2017-10-11] MEDS: (Novolin R) Insulin Human Regular 100 units/ml vial SC SCH ×3 (07:29→16:56)
--- NOTE | 2017-10-11 07:46 | CP.PCM.PN ---
Subjective - Date & Time of Evaluation Date of Evaluation: 10/11/17 Time of Evaluation: 07:44 - Subjective Subjective: Vascular Surgery Progress Note for Dr. Malin 72M seen and evaluated this AM. States hoarseness is improving and feels better. No acute events overnight. Will be transferred to [place] for PCI per Dr. Johnston. Denies n/v/d, f/c, SOB, CP, or urinary symptoms. Objective - Vital Signs/Intake and Output Vital Signs (last 24 hours): Temp Pulse Resp BP Pulse Ox 98.3 F 74 16 136/66 100 10/11/17 00:00 10/11/17 04:00 10/11/17 04:00 10/11/17 04:00 10/11/17 04:00 Intake and Output: 10/11/17 10/11/17 06:59 18:59 Intake Total 200 Balance 200 - Medications Medications: Current Medications Aspirin (Aspirin Chewable) 81 mg PO DAILY [facility] Last Admin: 10/10/17 09:53 Dose: 81 mg Clopidogrel Bisulfate (Plavix) 75 mg PO DAILY [facility] Last Admin: 10/10/17 09:54 Dose: 75 mg Ezetimibe (Zetia) 10 mg PO DAILY [facility] Last Admin: 10/10/17 09:59 Dose: 10 mg Heparin Sodium (Porcine) (Heparin) 5,000 units SC Q8 [facility] Last Admin: 10/10/17 23:00 Dose: 5,000 units Insulin Human Regular (Novolin R) 0 unit SC ACHS [facility] PRN Reason: Protocol Last Admin: 10/11/17 07:29 Dose: Not Given Ondansetron HCl (Zofran Inj) 4 mg IVP Q6H PRN PRN Reason: Nausea/Vomiting Last Admin: 10/08/17 23:35 Dose: 4 mg Pantoprazole Sodium (Protonix Ec Tab) 40 mg PO DAILY [facility] Last Admin: 10/10/17 09:54 Dose: 40 mg Rosuvastatin Calcium (Crestor) 40 mg PO HS [facility] Last Admin: 10/10/17 23:00 Dose: 40 mg Senna/Docusate Sodium (Senokot S 50 Mg-8.6 Mg) 1 tab PO BID [facility] Last Admin: 10/10/17 17:54 Dose: 1 tab - Labs Labs: 10/11/17 06:15 10/10/17 18:20 PT 12.2 SECONDS (9.7-12.2) 10/07/17 21:57 INR 1.1 10/07/17 21:57 APTT 27 SECONDS (21-34) 10/07/17 21:57 - Constitutional Appears: Well, Non-toxic, No Acute Distress - Head Exam Head Exam: ATRAUMATIC, NORMAL INSPECTION, NORMOCEPHALIC - Eye Exam Eye Exam: EOMI, Normal appearance - Neck Exam Additional comments: Dressing c/d/i - Respiratory Exam Respiratory Exam: Clear to Ausculation Bilateral, NORMAL BREATHING PATTERN - Cardiovascular Exam Cardiovascular Exam: REGULAR RHYTHM, +S1, +S2. absent: Murmur - GI/Abdominal Exam GI & Abdominal Exam: Soft, Normal Bowel Sounds. absent: Tenderness - Neurological Exam Neurological Exam: Alert, Awake - Skin Skin Exam: Dry, Intact, Normal Color, Warm Assessment and Plan - Assessment and Plan (Free Text) Assessment: 72M s/p R CEA POD4 complicated by post-op [place] Plan: cardio recs-transferred to [place] for PCI Continue ICU managment monitor surgical incision site further recs per Dr. Kimo Aburto PGY1
[2017-10-11] MEDS: Pantoprazole 40 mg EC Tab PO SCH (09:18)
[2017-10-11] MEDS: Docusate-Senna 50 mg-8.6 mg Tab PO SCH ×2 (09:19→18:10)
--- NOTE | 2017-10-11 13:26 | CP.PCM.PN ---
Subjective - Date & Time of Evaluation Date of Evaluation: 10/11/17 Time of Evaluation: 13:24 - Subjective Subjective: Patient s/p MYKE stent in large OM1 (L Cx) Hydration 1/2 NS 60cc/hr for 12 hrs ASA 81, Plavix 75 ans statins Strict bed rest till 7.30 pm tonigh. After that OOB to chair Check labs in am Objective - Vital Signs/Intake and Output Vital Signs (last 24 hours): Temp Pulse Resp BP Pulse Ox 97.9 F 75 18 133/70 98 10/11/17 08:00 10/11/17 08:00 10/11/17 08:00 10/11/17 08:00 10/11/17 08:00 Intake and Output: 10/11/17 10/11/17 06:59 18:59 Intake Total 200 50 Output Total 300 Balance 200 -250 - Medications Medications: Current Medications Aspirin (Aspirin Chewable) 81 mg PO DAILY [facility] Last Admin: 10/11/17 09:18 Dose: 81 mg Clopidogrel Bisulfate (Plavix) 75 mg PO DAILY [facility] Last Admin: 10/11/17 09:18 Dose: 75 mg Ezetimibe (Zetia) 10 mg PO DAILY [facility] Last Admin: 10/11/17 09:18 Dose: 10 mg Insulin Human Regular (Novolin R) 0 unit SC ACHS [facility] PRN Reason: Protocol Last Admin: 10/11/17 12:23 Dose: Not Given Ondansetron HCl (Zofran Inj) 4 mg IVP Q6H PRN PRN Reason: Nausea/Vomiting Last Admin: 10/08/17 23:35 Dose: 4 mg Pantoprazole Sodium (Protonix Ec Tab) 40 mg PO DAILY [facility] Last Admin: 10/11/17 09:18 Dose: 40 mg Rosuvastatin Calcium (Crestor) 40 mg PO HS [facility] Last Admin: 10/10/17 23:00 Dose: 40 mg Senna/Docusate Sodium (Senokot S 50 Mg-8.6 Mg) 1 tab PO BID [facility] Last Admin: 10/11/17 09:19 Dose: Not Given - Labs Labs: 10/11/17 06:15 10/10/17 18:20 PT 12.2 SECONDS (9.7-12.2) 10/07/17 21:57 INR 1.1 10/07/17 21:57 APTT 27 SECONDS (21-34) 10/07/17 21:57
[2017-10-11] MEDS: Sodium Chloride 0.45% 1,000 ML IV SCH (20:00)
[2017-10-12] MEDS: Sodium Chloride 0.45% 1,000 ML IV SCH ×2 (07:56→14:07)
[2017-10-12] MEDS: (Novolin R) Insulin Human Regular 100 units/ml vial SC SCH ×5 (08:18→21:50)
[2017-10-12] MEDS: Pantoprazole 40 mg EC Tab PO SCH (09:38)
[2017-10-12] MEDS: Docusate-Senna 50 mg-8.6 mg Tab PO SCH ×2 (09:39→18:17)
[2017-10-12 15:48] LABS: BASO % 0.9 % (0.0-2.0); EOS # 0.5 K/uL (0.0-0.7); EOS % 9.1 % (0.0-4.0); HEMOGLOBIN 11.7 g/dL (12.0-18.0); LYMPH # 1.2 K/uL (1.0-4.3); LYMPH % 23.4 % (20.0-40.0); MEAN CELL VOLUME 78.8 fL (80.0-94.0); MEAN CORPUSCULAR HEMOGLOBIN 26.8 pg (27.0-31.0); MEAN CORPUSCULAR HGB CONC 33.9 g/dL (33.0-37.0); MEAN PLATELET VOLUME 8.7 fL (7.2-11.7); MONO # 0.7 K/uL (0.0-0.8); MONO % 13.9 % (0.0-10.0); NEUT # 2.7 K/uL (1.8-7.0); NEUT % 52.7 % (50.0-75.0); RBC 4.35 Mil/uL (4.40-5.90); WHITE BLOOD COUNT 5.1 K/uL (4.8-10.8)
[2017-10-12 15:58] LABS: BLOOD UREA NITROGEN 22 mg/dL (9-20); GFR AFRICAN-AMERICAN > 60; GFR NON-AFRICAN AMERICAN > 60
[2017-10-12 15:59] LABS: CALCIUM 9.5 mg/dl (8.6-10.4)
--- NOTE | 2017-10-12 17:14 | CP.PCM.DIS ---
Provider - Provider Date of Admission: 10/07/17 05:57 Attending physician: Rio Malin Jr, MD Primary care physician: Dr. Apolinar Branham Consults: Dr. Johnston - Cardiology Dr. Padilla - ENT Dr. Christopher - Critical Care Time Spent in preparation of Discharge (in minutes): 30 Diagnosis - Discharge Diagnosis (1) Carotid stenosis, right Status: Acute (2) Myocardial infarction acute Status: Acute Hospital Course - Lab Results Lab Results: Most Recent Lab Values WBC 5.1 K/uL (4.8-10.8) 10/12/17 15:44 RBC 4.35 Mil/uL (4.40-5.90) L 10/12/17 15:44 Hgb 11.7 g/dL (12.0-18.0) L 10/12/17 15:44 Hct 34.3 % (35.0-51.0) L 10/12/17 15:44 MCV 78.8 fL (80.0-94.0) L 10/12/17 15:44 MCH 26.8 pg (27.0-31.0) L 10/12/17 15:44 MCHC 33.9 g/dL (33.0-37.0) 10/12/17 15:44 RDW 17.0 % (11.5-14.5) H 10/12/17 15:44 Plt Count 139 K/uL (130-400) 10/12/17 15:44 MPV 8.7 fL (7.2-11.7) 10/12/17 15:44 Neut % (Auto) 52.7 % (50.0-75.0) 10/12/17 15:44 Lymph % (Auto) 23.4 % (20.0-40.0) 10/12/17 15:44 [place] % (Auto) 13.9 % (0.0-10.0) H 10/12/17 15:44 Eos % (Auto) 9.1 % (0.0-4.0) H 10/12/17 15:44 Baso % (Auto) 0.9 % (0.0-2.0) 10/12/17 15:44 Neut # (Auto) 2.7 K/uL (1.8-7.0) 10/12/17 15:44 Lymph # (Auto) 1.2 K/uL (1.0-4.3) 10/12/17 15:44 [place] # (Auto) 0.7 K/uL (0.0-0.8) 10/12/17 15:44 Eos # (Auto) 0.5 K/uL (0.0-0.7) 10/12/17 15:44 Baso # (Auto) 0.0 K/uL (0.0-0.2) 10/12/17 15:44 Neutrophils % (Manual) 90 % (50-75) H 10/07/17 15:26 Band Neutrophils % 3 % (0-2) H 10/07/17 15:26 Lymphocytes % (Manual) 4 % (20-40) L 10/07/17 15:26 Monocytes % (Manual) 3 % (0-10) 10/07/17 15:26 Platelet Estimate Slightly decreased (NORMAL) L 10/07/17 15:26 Polychromasia Slight 10/07/17 15:26 Hypochromasia (manual) Slight 10/07/17 15:26 Anisocytosis (manual) Slight 10/07/17 15:26 Ovalocytes Slight 10/07/17 15:26 [place] Cells Slight 10/07/17 15:26 Schistocytes Slight 10/07/17 15:26 PT 12.2 SECONDS (9.7-12.2) 10/07/17 21:57 INR 1.1 10/07/17 21:57 APTT 27 SECONDS (21-34) 10/07/17 21:57 Puncture Site Line 10/07/17 08:23 pCO2 33 mm/Hg (35-45) L 10/07/17 08:23 pO2 360 mm/Hg (80-100) H 10/07/17 08:23 HCO3 20.9 mmol/L (21-28) L 10/07/17 08:23 ABG pH 7.37 (7.35-7.45) 10/07/17 08:23 ABG Total CO2 20.1 mmol/L (22-28) L 10/07/17 08:23 ABG O2 Saturation 98.8 % (95-98) H 10/07/17 08:23 ABG Base Excess -5.3 mmol/L (-2.0-3.0) L 10/07/17 08:23 Adolfo Test Na 10/07/17 08:23 ABG Potassium 5.4 mmol/L (3.6-5.2) H 10/07/17 08:23 Sodium 136.0 mmol/l (132-148) 10/07/17 08:23 Chloride 111.0 mmol/L (98-107) H 10/07/17 08:23 Glucose 136 mg/dl (75-110) H 10/07/17 08:23 Lactate 1.4 mmol/L (0.7-2.1) 10/07/17 08:23 Sodium 134 mmol/L (132-148) 10/12/17 15:44 Potassium 5.2 mmol/L (3.6-5.2) 10/12/17 15:44 Chloride 98 mmol/L (98-107) 10/12/17 15:44 Carbon Dioxide 27 mmol/L (22-30) 10/12/17 15:44 Anion Gap 14 (10-20) 10/12/17 15:44 BUN 22 mg/dL (9-20) H 10/12/17 15:44 Creatinine 1.0 mg/dL (0.8-1.5) 10/12/17 15:44 Est GFR ( Amer) > 60 10/12/17 15:44 Est GFR (Non-Af Amer) > 60 10/12/17 15:44 POC Glucose (mg/dL) 273 mg/dL (65-110) H 10/12/17 16:20 Random Glucose 285 mg/dL (75-110) H 10/12/17 15:44 Lactic Acid 1.3 mmol/L (0.7-2.1) 10/08/17 05:28 Calcium 9.5 mg/dl (8.6-10.4) 10/12/17 15:44 Phosphorus 3.0 mg/dL (2.5-4.5) 10/10/17 18:20 Magnesium 1.7 mg/dL (1.6-2.3) 10/10/17 18:20 Iron 113 ug/dL (49-181) 10/08/17 22:29 TIBC 353 ug/dL (250-450) 10/09/17 06:14 % Saturation 31 (20-55) 10/08/17 22:29 Ferritin 22.3 ng/mL 10/09/17 06:14 Total Bilirubin 1.5 mg/dL (0.2-1.3) H 10/09/17 06:14 AST 31 U/L (17-59) 10/09/17 06:14 ALT 27 U/L (21-72) 10/09/17 06:14 Alkaline Phosphatase 39 U/L (38-126) 10/09/17 06:14 Total Creatine Kinase 141 U/L (55-170) 10/07/17 12:37 CK-MB (Mass) 2.70 ng/mL (0.0-3.38) 10/07/17 12:37 Troponin I 4.5100 ng/mL (0.00-0.120) H* 10/08/17 05:28 NT-Pro-B Natriuret Pep 523 pg/mL (0-900) 10/07/17 15:19 Total Protein 5.4 g/dL (6.3-8.3) L 10/09/17 06:14 Albumin 3.0 g/dL (3.5-5.0) L 10/09/17 06:14 Globulin 2.4 gm/dL (2.2-3.9) 10/09/17 06:14 Albumin/Globulin Ratio 1.3 (1.0-2.1) 10/09/17 06:14 Vitamin B12 > 1000 pg/mL (239-931) H 10/09/17 06:14 Folate 12.9 ng/mL 10/09/17 06:14 Arterial Blood Potassium 5.4 mmol/L (3.6-5.2) H 10/07/17 08:23 Stool Occult Blood Negative (NEGATIVE) 10/10/17 15:18 Blood Type B POSITIVE 10/07/17 12:55 Antibody Screen Negative 10/07/17 12:55 - Hospital Course Hospital Course: Patient is a 72M who presented for R sided CEA. Post-operative course was complicated by myocardial infarction. Pt underwent PCI and had MYKE placed. Pt is currently stable and is clear for D/C. Discharge Exam - Head Exam Head Exam: ATRAUMATIC, NORMAL INSPECTION, NORMOCEPHALIC - Eye Exam Eye Exam: EOMI - ENT Exam ENT Exam: Mucous Membranes Moist - Neck Exam Neck exam: Full Rom Additional comments: R side incision, C/D/I - Respiratory Exam Respiratory Exam: NORMAL BREATHING PATTERN. absent: Accessory Muscle Use, Respiratory Distress - GI/Abdominal Exam GI & Abdominal Exam: Soft. absent: Distended, Firm, Guarding, Hernia, Tenderness - Neurological Exam Neurological exam: Alert, Oriented x3 - Skin Skin Exam: Dry, Warm Discharge Plan - Discharge Medications Prescriptions: Clopidogrel [Plavix] 75 mg PO DAILY #30 tab - Follow Up Plan Condition: GOOD Disposition: HOME/ ROUTINE Patient education suggested?: Yes Instructions: Heart Healthy Diet, Carotid Artery Disease, Chest Pain (DC), Carotid Artery Stenosis (DC), Heart Disease in Diabetics (DC), Syncope (Fainting ) (DC), Carotid Artery Endarterectomy (DC) Additional Instructions: Follow up with Dr. Malin in 1-[address] Johnston's office to schedule follow up appointment Referrals: Adolfo Johnston MD [Staff Provider] -
--- NOTE | 2017-10-12 18:23 | CP.PCM.PN ---
Subjective - Date & Time of Evaluation Date of Evaluation: 10/12/17 Time of Evaluation: 18:21 - Subjective Subjective: Surgery: Dr. Malin Pt seen and examined. Resting comfortably in bed. Underwent PCI yesterday w. MYKE placement. Objective - Vital Signs/Intake and Output Vital Signs (last 24 hours): Temp Pulse Resp BP Pulse Ox 98.2 F 81 18 117/68 99 10/12/17 16:00 10/12/17 16:00 10/12/17 16:00 10/12/17 16:00 10/12/17 12:00 Intake and Output: 10/12/17 10/12/17 06:59 18:59 Intake Total 1280 Output Total 1300 Balance -20 - Medications Medications: Current Medications Acetaminophen (Tylenol 325mg Tab) 650 mg PO Q6 PRN PRN Reason: Pain, Mild (1-3) Aspirin (Aspirin Chewable) 81 mg PO DAILY [facility] Last Admin: 10/12/17 09:38 Dose: 81 mg Clopidogrel Bisulfate (Plavix) 75 mg PO DAILY [facility] Last Admin: 10/12/17 09:38 Dose: 75 mg Ezetimibe (Zetia) 10 mg PO DAILY [facility] Last Admin: 10/12/17 09:39 Dose: 10 mg Heparin Sodium (Porcine) (Heparin) 5,000 units SC Q8 [facility] Last Admin: 10/12/17 14:06 Dose: 5,000 units Insulin Human Regular (Novolin R) 0 unit SC ACHS [facility] PRN Reason: Protocol Last Admin: 10/12/17 16:30 Dose: 3 units Ondansetron HCl (Zofran Inj) 4 mg IVP Q6H PRN PRN Reason: Nausea/Vomiting Last Admin: 10/08/17 23:35 Dose: 4 mg Pantoprazole Sodium (Protonix Ec Tab) 40 mg PO DAILY [facility] Last Admin: 10/12/17 09:38 Dose: 40 mg Rosuvastatin Calcium (Crestor) 40 mg PO HS [facility] Last Admin: 10/11/17 22:00 Dose: 40 mg Senna/Docusate Sodium (Senokot S 50 Mg-8.6 Mg) 1 tab PO BID [facility] Last Admin: 10/12/17 18:17 Dose: 1 tab - Labs Labs: 10/12/17 15:44 10/12/17 15:44 PT 12.2 SECONDS (9.7-12.2) 10/07/17 21:57 INR 1.1 10/07/17 21:57 APTT 27 SECONDS (21-34) 10/07/17 21:57 - Constitutional Appears: Non-toxic, No Acute Distress - Head Exam Head Exam: ATRAUMATIC, NORMOCEPHALIC - Eye Exam Eye Exam: EOMI - ENT Exam ENT Exam: Mucous Membranes Moist - Neck Exam Additional comments: R incision C/D/I - Respiratory Exam Respiratory Exam: NORMAL BREATHING PATTERN. absent: Accessory Muscle Use, Respiratory Distress - GI/Abdominal Exam GI & Abdominal Exam: Soft. absent: Distended, Firm, Guarding, Rigid, Tenderness - Extremities Exam Extremities Exam: absent: Calf Tenderness, Pedal Edema - Neurological Exam Neurological Exam: Alert, Awake, Oriented x3 - Psychiatric Exam Psychiatric exam: Normal Affect, Normal Mood Assessment and Plan - Assessment and Plan (Free Text) Assessment: 72M s/p R CEA, POD#5, complicated by post-op HI, s/p PCI w. MYKE placement, POD#1 -c/w current medical management -will plan for d/c in upcoming days -d/w attending [facility] PGY4
--- NOTE | 2017-10-12 19:40 | CP.PCM.CON ---
History of Present Illness - History of Present Illness History of Present Illness: Chief complaint: Medical management HPI: 72-year-old male with a history of CABG, prostate cancer, diabetes, hypertension , hyperlipidemia, anemia, underwent right carotid endarterectomy. Following that surgery which was done recently few days ago, he suddenly developed low blood pressure, and chest pain. He was also having episodes of nausea and vomiting. Patient was also having some shortness of breath. Patient received 1 unit of blood transfusion. Immediate postop patient developed non-ST elevation SD, with the positive troponin. Patient underwent angiogram, and noted to have occlusion of OM 99% noted. And patient underwent PCI yesterday. Patient underwent a drug-eluting stent OM 1, and the patient tolerated the procedure well. Meanwhile medical consultation was called her to contact for further management. Patient is now having no chest pain, comfortable otherwise. Past medical history: Diabetes, hypertension, hyperlipidemia, anemia, prostate and prostate cancer, CAD. Surgical history include CABG in 2017, prostatectomy in 2013 Family history significant for high blood pressure, dementia. Patient denies any alcohol or smoking. Denies any drugs. He lives with his and son. Her current medications reviewed from the chart. Review of system: Reviewed from the chart. Patient is having no chest pain or shortness of breath currently. Feeling better. He underwent a right carotid endarterectomy following that he developed a non- ST elevation SD. On examination: Vital signs stable at this time. Chest bilateral good air entry. Regular heart sound. Nontender abdomen. No pedal edema Labs reviewed Elevated blood sugar noted. BUN/creatinine is normal. CBC is normal. Patient current medications reviewed Patient is currently aspirin, Crestor 40 mg, insulin coverage, Plavix, pantoprazole, IV fluid, Zetia. Patient chest x-ray is nonspecific. Assessment and recommendation: 72-year-old male with a history of diabetes hypertension hyperlipidemia CAD, status post CABG, hyperlipidemia. Now admitted with the non-ST elevation SD following the right carotid endarterectomy. Uncontrolled diabetes. Patient underwent drug-eluting stenting of the OM. On multiple medications. Controlled blood sugar. Glucose monitoring. Discussed with the patient. We will follow-up the patient Past Patient History - Infectious Disease Hx of Infectious Diseases: None - Past Medical History & Family History Past Medical History?: Yes - Past Social History Smoking Status: Former Smoker - CARDIAC Hx Cardiac Disorders: Yes (CAD) Hx Hypercholesterolemia: Yes Hx Hypertension: Yes - PULMONARY Hx Chronic Obstructive Pulmonary Disease (COPD): Yes - NEUROLOGICAL Hx Neurological Disorder: No Hx Dizziness: Yes - HEENT Hx HEENT Problems: Yes Hx Cataracts: Yes (RIGHT) - RENAL Hx Chronic Kidney Disease: No - ENDOCRINE/METABOLIC Hx Diabetes Mellitus Type 2: Yes - HEMATOLOGICAL/ONCOLOGICAL Hx Blood Disorders: No - INTEGUMENTARY Hx Dermatological Problems: Yes (PIGMENT LOSS) - MUSCULOSKELETAL/RHEUMATOLOGICAL Hx Arthritis: Yes - GASTROINTESTINAL Hx Gastrointestinal Disorders: No - GENITOURINARY/GYNECOLOGICAL Hx Genitourinary Disorders: Yes Hx Prostate Problems: Yes - PSYCHIATRIC Hx Psychophysiologic Disorder: No Hx Substance Use: No - SURGICAL HISTORY Hx Surgeries: Yes Hx Cataract Extraction: Yes (RIGHT) Hx Cardiac Catheterization: Yes Hx Open Heart Surgery: Yes (1 year ago) Other/Comment: prostate sx - ANESTHESIA Hx Anesthesia: Yes Hx Anesthesia Reactions: No Hx Malignant Hyperthermia: No Has any member of the family had a problem w/ anesthesia?: No Meds Home Medications: Home Medication List Medication Instructions Recorded Confirmed Type Clopidogrel [Plavix] 75 mg PO DAILY #30 tab 10/12/17 Rx Allergies/Adverse Reactions: Allergies Allergy/AdvReac Type Severity Reaction Status Date / Time No Known Allergies Allergy Verified 08/30/16 19:58 - Medications Medications: Current Medications Acetaminophen (Tylenol 325mg Tab) 650 mg PO Q6 PRN PRN Reason: Pain, Mild (1-3) Aspirin (Aspirin Chewable) 81 mg PO DAILY [facility] Last Admin: 10/12/17 09:38 Dose: 81 mg Clopidogrel Bisulfate (Plavix) 75 mg PO DAILY [facility] Last Admin: 10/12/17 09:38 Dose: 75 mg Ezetimibe (Zetia) 10 mg PO DAILY [facility] Last Admin: 10/12/17 09:39 Dose: 10 mg Heparin Sodium (Porcine) (Heparin) 5,000 units SC Q8 [facility] Last Admin: 10/12/17 14:06 Dose: 5,000 units Insulin Human Regular (Novolin R) 0 unit SC ACHS [facility] PRN Reason: Protocol Last Admin: 10/12/17 16:30 Dose: 3 units Ondansetron HCl (Zofran Inj) 4 mg IVP Q6H PRN PRN Reason: Nausea/Vomiting Last Admin: 10/08/17 23:35 Dose: 4 mg Pantoprazole Sodium (Protonix Ec Tab) 40 mg PO DAILY [facility] Last Admin: 10/12/17 09:38 Dose: 40 mg Rosuvastatin Calcium (Crestor) 40 mg PO HS [facility] Last Admin: 10/11/17 22:00 Dose: 40 mg Senna/Docusate Sodium (Senokot S 50 Mg-8.6 Mg) 1 tab PO BID [facility] Last Admin: 10/12/17 18:17 Dose: 1 tab Results - Vital Signs Recent Vital Signs: Last Vital Signs Temp 98.2 F 10/12/17 16:00 Pulse 81 10/12/17 16:00 Resp 18 10/12/17 16:00 BP 117/68 10/12/17 16:00 Pulse Ox 99 10/12/17 12:00 - Labs Result Diagrams: 10/12/17 15:44 10/12/17 15:44 Labs: Laboratory Results - last 24 hr 10/12/17 10/12/17 10/12/17 07:26 11:53 15:44 WBC 5.1 RBC 4.35 L Hgb 11.7 L Hct 34.3 L MCV 78.8 L MCH 26.8 L MCHC 33.9 RDW 17.0 H Plt Count 139 MPV 8.7 Neut % (Auto) 52.7 Lymph % (Auto) 23.4 [place] % (Auto) 13.9 H Eos % (Auto) 9.1 H Baso % (Auto) 0.9 Neut # (Auto) 2.7 Lymph # (Auto) 1.2 [place] # (Auto) 0.7 Eos # (Auto) 0.5 Baso # (Auto) 0.0 Sodium Potassium Chloride Carbon Dioxide Anion Gap BUN Creatinine Est GFR ( Amer) Est GFR (Non-Af Amer) POC Glucose (mg/dL) 229 H 343 H Random Glucose Calcium 10/12/17 10/12/17 15:44 16:20 WBC RBC Hgb Hct MCV MCH MCHC RDW Plt Count MPV Neut % (Auto) Lymph % (Auto) [place] % (Auto) Eos % (Auto) Baso % (Auto) Neut # (Auto) Lymph # (Auto) [place] # (Auto) Eos # (Auto) Baso # (Auto) Sodium 134 Potassium 5.2 Chloride 98 Carbon Dioxide 27 Anion Gap 14 BUN 22 H Creatinine 1.0 Est GFR ( Amer) > 60 Est GFR (Non-Af Amer) > 60 POC Glucose (mg/dL) 273 H Random Glucose 285 H Calcium 9.5
[2017-10-12 22:36] VITALS: RESP 20
--- NOTE | 2017-10-12 23:06 | CP.PCM.PN ---
Subjective - Date & Time of Evaluation Date of Evaluation: 10/12/17 Time of Evaluation: 18:40 - Subjective Subjective: Patient seen and evaluated ComfortablDischarg home tomorrow F/U with [place] for cardiology as out patient Objective - Vital Signs/Intake and Output Vital Signs (last 24 hours): Temp Pulse Resp BP Pulse Ox 97.6 F 84 20 146/76 100 10/12/17 22:35 10/12/17 22:35 10/12/17 22:35 10/12/17 22:35 10/12/17 22:35 Intake and Output: 10/12/17 10/13/17 18:59 06:59 Intake Total 1280 Output Total 1300 Balance -20 - Medications Medications: Current Medications Acetaminophen (Tylenol 325mg Tab) 650 mg PO Q6 PRN PRN Reason: Pain, Mild (1-3) Aspirin (Aspirin Chewable) 81 mg PO DAILY [facility] Last Admin: 10/12/17 09:38 Dose: 81 mg Clopidogrel Bisulfate (Plavix) 75 mg PO DAILY [facility] Last Admin: 10/12/17 09:38 Dose: 75 mg Ezetimibe (Zetia) 10 mg PO DAILY [facility] Last Admin: 10/12/17 09:39 Dose: 10 mg Heparin Sodium (Porcine) (Heparin) 5,000 units SC Q8 [facility] Last Admin: 10/12/17 21:27 Dose: 5,000 units Insulin Human Regular (Novolin R) 0 unit SC ACHS [facility] PRN Reason: Protocol Last Admin: 10/12/17 21:50 Dose: Not Given Ondansetron HCl (Zofran Inj) 4 mg IVP Q6H PRN PRN Reason: Nausea/Vomiting Last Admin: 10/08/17 23:35 Dose: 4 mg Pantoprazole Sodium (Protonix Ec Tab) 40 mg PO DAILY [facility] Last Admin: 10/12/17 09:38 Dose: 40 mg Rosuvastatin Calcium (Crestor) 40 mg PO HS [facility] Last Admin: 10/12/17 21:27 Dose: 40 mg Senna/Docusate Sodium (Senokot S 50 Mg-8.6 Mg) 1 tab PO BID [facility] Last Admin: 10/12/17 18:17 Dose: 1 tab - Labs Labs: 10/12/17 15:44 10/12/17 15:44 PT 12.2 SECONDS (9.7-12.2) 10/07/17 21:57 INR 1.1 10/07/17 21:57 APTT 27 SECONDS (21-34) 10/07/17 21:57
[2017-10-13] MEDS: (Novolin R) Insulin Human Regular 100 units/ml vial SC SCH ×3 (08:21→17:09)
[2017-10-13 09:19] VITALS: PULSE 78; O2SAT 97
[2017-10-13] MEDS: Pantoprazole 40 mg EC Tab PO SCH (09:35)
[2017-10-13] MEDS: Docusate-Senna 50 mg-8.6 mg Tab PO SCH ×2 (10:46→17:12)
[2017-10-13 16:28] VITALS: BP 119/70; TEMP 98.4
== END 2017-10-13 18:30 | disposition home or self-care (01) | DRG 37 ==
LOC: C.9S 05:57 → EDSTATUS 07:45 → C.9I 12:04 → C.3T 10-12 22:23
PROVIDERS: ADMIT Surgery Vascular Surgery; ATTEND Surgery Vascular Surgery
PROC: 03CM0ZZ Extirpation of Matter from Right External Carotid Artery, Open Approach (ICD-10-PCS; principal; 2017-10-07 07:45)
PROC: 4A023N7 Measurement of Cardiac Sampling and Pressure, Left Heart, Percutaneous Approach (ICD-10-PCS; 2017-10-08)
PROC: B2151ZZ Fluoroscopy of Left Heart using Low Osmolar Contrast (ICD-10-PCS; 2017-10-08)
PROC: B2181ZZ Fluoroscopy of Left Internal Mammary Bypass Graft using Low Osmolar Contrast (ICD-10-PCS; 2017-10-08)
PROC: B2111ZZ Fluoroscopy of Multiple Coronary Arteries using Low Osmolar Contrast (ICD-10-PCS; 2017-10-08)
PROC: 0BJ08ZZ Inspection of Tracheobronchial Tree, Via Natural or Artificial Opening Endoscopic (ICD-10-PCS; 2017-10-09)
PROC: 027044Z Dilation of Coronary Artery, One Artery with Drug-eluting Intraluminal Device, Percutaneous Endoscopic Approach (ICD-10-PCS; 2017-10-11)
DX: I65.21 Occlusion and stenosis of right carotid artery (principal); I21.4 Non-ST elevation (NSTEMI) myocardial infarction; I42.0 Dilated cardiomyopathy; I25.5 Ischemic cardiomyopathy; I25.82 Chronic total occlusion of coronary artery; I65.23 Occlusion and stenosis of bilateral carotid arteries; J44.9 Chronic obstructive pulmonary disease, unspecified; Z79.02 Long term (current) use of antithrombotics/antiplatelets; Z79.84 Long term (current) use of oral hypoglycemic drugs; Z85.46 Personal history of malignant neoplasm of prostate; Z87.891 Personal history of nicotine dependence; Z95.1 Presence of aortocoronary bypass graft; I10 Essential (primary) hypertension; E78.5 Hyperlipidemia, unspecified; D64.9 Anemia, unspecified; E11.65 Type 2 diabetes mellitus with hyperglycemia; I25.10 Atherosclerotic heart disease of native coronary artery without angina pectoris

== ENCOUNTER 2018-08-22 09:37 | Outpatient (CLI) | payer MEDICARE | END 2018-08-22 09:38 | disposition home or self-care (01) | LOC: C.CTH 09:37 ==